=== PATIENT | female | born 1945 | race Caucasian/White ===

== ENCOUNTER 2021-10-03 05:59 | Inpatient (IN) ==
--- NOTE | 2021-07-17 14:35 | PAT Medication Instructions ---
Medication Instructions Date of Service July 17, 2021 Home Medications amlodipine 2.5 mg tablet 2.5 mg PO HS aspirin 81 mg tablet 81 mg PO HS calcium 600 mg capsule 600 mg PO QAM citalopram 20 mg tablet (Celexa) 20 mg PO QAM cyanocobalamin (vitamin B-12) 1,000 mcg tablet,extended release (Vitamin B-12 ER) 1,000 mcg PO QAM dicyclomine 10 mg capsule 10 mg PO TID PRN doxazosin 2 mg tablet (Cardura) 2 mg PO HS ezetimibe 10 mg tablet (Zetia) 10 mg PO QAM isosorbide mononitrate 60 mg tablet,extended release 24 hr 60 mg PO HS isosorbide mononitrate 60 mg tablet,extended release 24 hr 90 mg PO QAM lorazepam 1 mg tablet 1 mg PO HS losartan 100 mg tablet 100 mg PO QAM magnesium 250 mg tablet 250 mg PO HS metoprolol succinate 100 mg tablet,extended release 24 hr 100 mg PO QAM multivitamin 1 cap PO QAM nitroglycerin 0.4 mg sublingual tablet 0.4 mg SUBLINGUAL UD PRN pantoprazole 40 mg tablet,delayed release (Protonix) 40 mg PO HS potassium chloride 8 mEq tablet,extended release (Klor-Con) 8 meq PO QAM rosuvastatin 10 mg tablet (Crestor) 20 mg PO HS triamterene 37.5 mg-hydrochlorothiazide 25 mg capsule 1 cap PO UD albuterol sulfate 0.63 mg/3 mL solution for nebulization 0.63 mg INHALATION Q4H PRN albuterol sulfate 90 mcg/actuation aerosol inhaler 2 puff INHALATION Q6H PRN levothyroxine 75 mcg tablet 75 mcg PO QAM Continue as directed nitroglycerin 0.4 mg sublingual tablet 0.4 mg SUBLINGUAL UD PRN(if needed) ASK your prescriber and surgeon aspirin 81 mg tablet 81 mg PO HS DO NOT take the morning of surgery calcium 600 mg capsule 600 mg PO QAM cyanocobalamin (vitamin B-12) 1,000 mcg tablet,extended release (Vitamin B-12 ER) 1,000 mcg PO QAM dicyclomine 10 mg capsule 10 mg PO TID PRN losartan 100 mg tablet 100 mg PO QAM multivitamin 1 cap PO QAM potassium chloride 8 mEq tablet,extended release (Klor-Con) 8 meq PO QAM triamterene 37.5 mg-hydrochlorothiazide 25 mg capsule 1 cap PO UD Take morning of surgery With a small sip of water, OTHERWISE NOTHING TO EAT OR DRINK AFTER MIDNIGHT: citalopram 20 mg tablet (Celexa) 20 mg PO QAM ezetimibe 10 mg tablet (Zetia) 10 mg PO QAM isosorbide mononitrate 60 mg tablet,extended release 24 hr 90 mg PO QAM metoprolol succinate 100 mg tablet,extended release 24 hr 100 mg PO QAM albuterol sulfate 0.63 mg/3 mL solution for nebulization 0.63 mg INHALATION Q4H PRN(use if needed). albuterol sulfate 90 mcg/actuation aerosol inhaler 2 puff INHALATION Q6H PRN(use if needed; please bring with you to hospital day of surgery if possible). levothyroxine 75 mcg tablet 75 mcg PO QAM Take evening before surgery amlodipine 2.5 mg tablet 2.5 mg PO HS dicyclomine 10 mg capsule 10 mg PO TID PRN doxazosin 2 mg tablet (Cardura) 2 mg PO HS isosorbide mononitrate 60 mg tablet,extended release 24 hr 60 mg PO HS lorazepam 1 mg tablet 1 mg PO HS magnesium 250 mg tablet 250 mg PO HS pantoprazole 40 mg tablet,delayed release (Protonix) 40 mg PO HS rosuvastatin 10 mg tablet (Crestor) 20 mg PO HS albuterol sulfate 0.63 mg/3 mL solution for nebulization 0.63 mg INHALATION Q4H PRN(if needed) albuterol sulfate 90 mcg/actuation aerosol inhaler 2 puff INHALATION Q6H PRN(if needed) Other Notes If you have any questions please call us at [phone] or [phone] or [phone] or [phone]
--- NOTE | 2021-07-29 09:05 | Anesthesiology Consultation ---
Date of Service July 29, 2021 Assessment & Plan (1) Encounter for pre-operative examination: Chart Review Chart Review: Acceptable Risk for Surgery (pending PCP clearance, response on anemia/cardio optimization, and preop Covid testing results ) and Patient seen in Pre Admission Testing Awaiting surgeon ordered PCP clearance - did write note to PCP regarding anemia and if patient is also optimized from cardiac standpoint (pt's previous cardiol ogist recently retired) Per PAT appt on 07/29/21, patient denies any recent travel or large group activities. No known Covid positive exposures or Covid related symptoms. No known Covid infection in the past 90 days. Pt is vaccinated for Covid. Preop Covid testing scheduled 08/08/21= will await results. Educated on importance of self quarantining, social distancing and wearing mask in public for the patient one week prior to surgery and after Covid testing done Pt last seen by cardio 12/31/20= Pt seen for follow up visit. Consider having back surgery with Dr. Mchugh in [place] in the future. Recent labs reviewed. Recommended diet and risk factor modification. Pt will follow up with PCP for poor appetite and weight loss. Pt will continue following with ortho for back issues Teaching & Discussion Pre-Anesthesia Teaching/Discussion Notes: Instructed NPO after midnight before surgery,except medications with 15 cc of water. Medication instructions provided according to the PAT guidelines. History Surgery Operation Date: 08/12/21 12:25 Proposed Procedures p L3-L4 Decompression and Fusion, L4-L5 Hardware Removal - Mark Mchugh, Height/Weight Height: 4 ft 9 in Weight: 61 kg Allergies Allergy/AdvReac Type Severity Reaction Status Date / Time morphine Allergy Mild iv Verified 07/16/21 16:08 morphine - vomit oxycodone Allergy Mild very Verified 07/16/21 16:08 nauseated Medications Home Medications Medication Instructions Recorded Confirmed Last Taken amlodipine 2.5 mg tablet 2.5 mg PO HS 01/23/21 07/16/21 Unknown aspirin 81 mg tablet 81 mg PO HS 01/23/21 07/16/21 Unknown calcium 600 mg capsule 600 mg PO QAM 01/23/21 07/16/21 Unknown citalopram 20 mg tablet (Celexa) 20 mg PO QAM 01/23/21 07/16/21 Unknown cyanocobalamin (vitamin B-12) 1,000 mcg PO [facility] 01/23/21 07/16/21 Unknown 1,000 mcg tablet,extended release (Vitamin B-12 ER) dicyclomine 10 mg capsule 10 mg PO TID PRN 01/23/21 07/16/21 Unknown doxazosin 2 mg tablet (Cardura) 2 mg PO 01/23/21 07/16/21 Unknown ezetimibe 10 mg tablet (Zetia) 10 mg PO [facility] 01/23/21 07/16/21 Unknown isosorbide mononitrate 60 mg 60 mg PO 01/23/21 07/16/21 Unknown tablet,extended release 24 hr isosorbide mononitrate 60 mg 90 mg PO [facility] 01/23/21 07/16/21 Unknown tablet,extended release 24 hr lorazepam 1 mg tablet 1 mg PO 01/23/21 07/16/21 Unknown losartan 100 mg tablet 100 mg PO [facility] 01/23/21 07/16/21 Unknown magnesium 250 mg tablet 250 mg PO 01/23/21 07/16/21 Unknown metoprolol succinate 100 mg 100 mg PO [facility] 01/23/21 07/16/21 Unknown tablet,extended release 24 hr multivitamin 1 cap PO [facility] 01/23/21 07/16/21 Unknown nitroglycerin 0.4 mg sublingual 0.4 mg SUBLINGUAL UD PRN 01/23/21 07/16/21 Unknown tablet pantoprazole 40 mg tablet,delayed 40 mg PO 01/23/21 07/16/21 Unknown release (Protonix) potassium chloride 8 mEq 8 meq PO [facility] 01/23/21 07/16/21 Unknown tablet,extended release (Klor-Con) rosuvastatin 10 mg tablet (Crestor) 20 mg PO 01/23/21 07/16/21 Unknown triamterene 37.5 1 cap PO 01/23/21 07/16/21 Unknown mg-hydrochlorothiazide 25 mg capsule albuterol sulfate 0.63 mg/3 mL 0.63 mg INHALATION Q4H PRN 07/16/21 07/16/21 Unknown solution for nebulization albuterol sulfate 90 mcg/actuation 2 puff INHALATION Q6H PRN 07/16/21 07/16/21 Unknown aerosol inhaler levothyroxine 75 mcg tablet 75 mcg PO [facility] 07/16/21 07/16/21 Unknown Past Medical History Medical History (Updated 07/29/21 @ 09:25 by Renae Mendiola PA-C) Anemia F/U DR GEMA ROSENTHAL No recent blood transfusion - no recent issues Anxiety Asthma No recent exacerbations LAST INHALER USE 1 YR AGO CAD (coronary artery disease) S/p 3 vessel CABG [address] 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 parisi no stents-05/2020 History of carpal tunnel surgery of left wrist History of coronary artery bypass graft 1999 - x 3 at [place] History of esophagogastroduodenoscopy (EGD) History of left cataract extraction History of right cataract extraction History of total left knee replacement History of total right knee replacement Hx of cholecystectomy Hx of colonoscopy 2020 Hx of shoulder surgery right rotator cuff repair Hx of sinus surgery Hx of thumb surgery right S/P epidural steroid injection Status post trigger finger release left finger Past Anesthesia History No Hx of Anesthesia Complications and No Family Hx of Anesthesia Complications History of PONV No Hx of PONV and No Hx of Motion Sickness Social History Smoking Status: Former smoker Do You Dip or Chew Tobacco: No Smoking End Date: QUIT YRS AGO Hx Alcohol Use: Yes alcohol intake frequency: holidays/special occasions only Hx Substance Use: No substance use type: does not use Review of Systems Patient denies chest pain, shortness of breath, dyspnea on exertion, cough, wheezing, palpitations. No hx of seizures, stroke, NC. No hx of blood clots or blood transfusions Physical Exam Vital Signs VITALS BP 112/62 P 50 TEMP 97.9 SP02 98% RESP 16 Constitutional no acute distress ENMT Mouth: no TMJ clicking Thyromental Distance: < 3.5 Finger Breadths (2.5) Mallampati Class: II (smaller airway ) Mouth / Teeth: 1. Missing Permanent left upper side tooth implant Neck + limited neck extension (mild ) Respiratory normal respiratory effort; no respiratory distress Auscultation: lungs clear to auscultation bilaterally and + diminished lung sounds (throughout); no wheezes Cardiovascular Rate/Rhythm: regular rate and regular rhythm Heart Sounds: no murmur Vessels: no carotid bruit Musculoskeletal Spine: no pain with cervical ROM Extremities: extremities normal to inspection Psychiatric Orientation: alert Lab Results Anesthesia Preop Results Results Anesthesia Widget: WBC 6.60 K/uL (4.8-10.8) 07/29/21 Hgb 10.7 g/dL (12.0-16.0) L 07/29/21 Hct 33.9 % (37-47) L 07/29/21 Plt 225 K/uL (130-400) 07/29/21 Na 142 mmol/L (136-145) 07/29/21 K 4.2 mmol/L (3.5-5.1) 07/29/21 Cl 108 mmol/L (98-107) H 07/29/21 CO2 31 mmol/L (21-32) 07/29/21 BUN 26 mg/dl (7-18) H 07/29/21 Creat 0.93 mg/dl (0.6-1.2) 07/29/21 Glucose Level 96 mg/dl (70-99) 07/29/21 PT 11.3 Seconds (9.0-12.0) 07/29/21 PTT 27.1 Seconds (21.0-31.0) 07/29/21 INR 1.1 (0.9-1.1) 07/29/21 Urine Color Yellow 07/29/21 Urine Appearance Clear (Clear) 07/29/21 Urine pH 5.5 (4.5-7.5) 07/29/21 Urine Specific Marlin 1.020 (1.000-1.030) 07/29/21 Urine Protein Negative (Negative) 07/29/21 Urine Glucose (UA) Negative (Negative) 07/29/21 Urine Ketones Negative (Negative) 07/29/21 Urine Blood Negative (Negative) 07/29/21 Urine Nitrite Negative (Negative) 07/29/21 Urine Bilirubin Negative (Negative) 07/29/21 Urine Urobilinogen Negative (Negative) 07/29/21 Urine Leukocyte Esterase Negative (Negative) 07/29/21 Blood Type O Positive 07/29/21 Antibody Screen NEGATIVE 07/29/21 Lab Comments: Anemia per PMH- will send note to PCP to inquire if current lab values are baseline for patient Testing Electrocardiogram Date: 07/29/21 SB with 1st degree AVB at 50bpm Otherwise normal EKG per cardio. Chest X-Ray Date: 01/29/21 Findings: + NAD A few small linear density at the left lung base consistent with subsegmental atelectasis or scarring. No focal lung consolidations to suggest pneumonia. No evidence for pulmonary edema. There is a tortuous thoracic aorta. No pleural fus ions. No pneumothorax. The heart is normal in size. There are poststernotomy changes. Pedicle screws within the left side of the lower lumbar spine. These are partially imaged on this study. Echocardiogram Date: 05/27/20 EF: 55% LV Function: normal Other Findings: no LVH Aortic root4 cm at the sinotubular junction. Mild mitral annular calcification. Stress Test Date: 09/06/19 Normal myocardial perfusion SPECT images without evidence for pharmacologically induced ischemia. Normal LV motion and thickening. Normal LVEF 53%. Cardiac Catheterization Date: 06/10/20 LM = distal 20% stenosis LAD = mid 40% stenosis. RICHTER is atretic/occluded. Circumflex = mild atherosclerosis RCA 70% mid chronic total occlusion. SVG to RPDA, occluded midway. Distal RCA is filling retrograde from LAD artery. Severe single vessel CAD. Occluded vein graft to RPDA, RICHTER to LAD. Normal LV systolic function at 55%. 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 Significant stenosis of left common carotid artery.
[2021-10-03] MEDS ORDERED: ACETAMINOPHEN 500 MG TAB PO SCH (06:00)
[2021-10-03] MEDS ORDERED: CeleBREX 200 MG CAP PO SCH (06:00)
[2021-10-03] MEDS ORDERED: ceFAZolin 1000MG 1,000 MG/7.5 ML SYR IV SCH (06:00)
[2021-10-03] MEDS ORDERED: LR 15ML/HR IV SCH (06:00)
[2021-10-03] MEDS ORDERED: GABAPENTIN 300 MG CAP PO SCH (06:00)
[2021-10-03] MEDS ORDERED: LIDOCAINE 2% 2 ML VIAL/AMP(20MG/ML) INFIL ONE (06:37)
[2021-10-03] MEDS ORDERED: fentaNYL citrate 100 MCG/2 ML VIAL ONE (06:37)
[2021-10-03] MEDS ORDERED: ROCURONIUM BROMIDE 10 MG/ML 5 ML VIAL IV ONE (06:37)
[2021-10-03] MEDS ORDERED: PROPOFOL IV EMULSION 10 MG/ML 20 ML VIAL IV ONE (06:37)
[2021-10-03] MEDS ORDERED: HYDROmorphone INJ 2 MG/ML SYR/VIAL ONE (06:37)
[2021-10-03 06:38] LABS: Basophils # (auto) 0.06 K/uL (0-0.2); Basophils % (auto) 0.8 %; Eosinophils # (auto) 0.27 K/uL (0-0.5); Eosinophils % (auto) 3.7 %; Hematocrit (blood only) 36.6 % (37-47); Hemoglobin 11.7 g/dL (12.0-16.0); Immature Granulocytes # (auto) 0.02 K/uL (0.00-0.02); Immature Granulocytes % (auto) 0.3 %; Lymphocytes # (auto) 2.48 K/uL (1.2-3.4); Lymphocytes % (auto) 33.8 %; Mean Corpuscular Hemoglobin 32.1 pg (25-34); Mean Corpuscular Volume 100.3 fL (80-100); Mean Platelet Volume 11.3 fL (7.4-10.4); Monocytes # (auto) 1.06 K/uL (0.11-0.59); Monocytes % (auto) 14.5 %; Neutrophils # (auto) 3.44 K/uL (1.4-6.5); Neutrophils % (auto) 46.9 %; Platelet Count 208 K/uL (130-400); RDW Coefficient of Variation 13.5 % (11.5-14.5); RDW Standard Deviation 49.9 fL (36.4-46.3); Red Blood Count 3.65 M/uL (4.2-5.4); White Blood Count 7.33 K/uL (4.8-10.8)
[2021-10-03 06:45] LABS: INR 1.1 (0.9-1.1); Partial Thromboplastin Ratio 0.9; Partial Thromboplastin Time 25.4 Seconds (21.0-31.0); Prothrombin Time 11.4 Seconds (9.0-12.0)
[2021-10-03 07:03] LABS: BUN Creatinine Ratio 28.3 (10-20); Calcium 9.7 mg/dl (8.5-10.1); Creatinine Clr Calc Pharmacy 33.9 ml/min; Est GFR (African American) 58.2 ml/min; Est GFR (Non-African American) 50.3 ml/min; Potassium 3.5 mmol/L (3.5-5.1)
[2021-10-03] MEDS ORDERED: EPINEPHrine INJ 1 MG/ML AMP ONE (07:03)
[2021-10-03] MEDS ORDERED: BUPIVACAINE 0.5 % 5 MG/1 ML MPF 30ML VIAL ONE (07:03)
[2021-10-03] MEDS ORDERED: ceFAZolin 330 MG/ML 1 GM VIAL ONE (07:03)
--- NOTE | 2021-10-03 07:35 | History & Physical Report ---
Date of Service October 03, 2021 Assessment & Plan (1) Neurogenic claudication due to lumbar spinal stenosis: Plan: L3-L4 decompression fusion, L4-L5 hardware removal History of Present Illness Chief Complaint: Back and bilateral leg pain Primary Care Provider: Kareem Stanley This is a 68-year-old female well-known to me the presents with chronic persistent back and leg pain. Failing course of nonoperative care is here for surgical invention. Allergies Allergy/AdvReac Type Severity Reaction Status Date / Time morphine Allergy Mild iv Verified 10/03/21 06:32 morphine - vomit oxycodone Allergy Mild very Verified 10/03/21 06:32 nauseated Home Medications Medication Instructions Recorded Confirmed Type amlodipine 2.5 mg tablet 2.5 mg PO HS 01/23/21 10/03/21 History aspirin 81 mg tablet 81 mg PO 01/23/21 10/03/21 History calcium 600 mg capsule 600 mg PO [facility] 01/23/21 10/03/21 History citalopram 20 mg tablet (Celexa) 20 mg PO [facility] 01/23/21 10/03/21 History cyanocobalamin (vitamin B-12) 1,000 mcg PO [facility] 01/23/21 10/03/21 History 1,000 mcg tablet,extended release (Vitamin B-12 ER) dicyclomine 10 mg capsule 10 mg PO TID PRN 01/23/21 10/03/21 History doxazosin 2 mg tablet (Cardura) 2 mg PO 01/23/21 10/03/21 History ezetimibe 10 mg tablet (Zetia) 10 mg PO [facility] 01/23/21 10/03/21 History isosorbide mononitrate 60 mg 60 mg PO 01/23/21 10/03/21 History tablet,extended release 24 hr isosorbide mononitrate 60 mg 90 mg PO [facility] 01/23/21 10/03/21 History tablet,extended release 24 hr lorazepam 1 mg tablet 1 mg PO 01/23/21 10/03/21 History losartan 100 mg tablet 100 mg PO QA 01/23/21 10/03/21 History magnesium 250 mg tablet 250 mg PO 01/23/21 10/03/21 History metoprolol succinate 100 mg 100 mg PO [facility] 01/23/21 10/03/21 History tablet,extended release 24 hr multivitamin 1 cap PO QAM 01/23/21 10/03/21 History nitroglycerin 0.4 mg sublingual 0.4 mg SUBLINGUAL UD PRN 01/23/21 10/03/21 History tablet pantoprazole 40 mg tablet,delayed 40 mg PO HS 01/23/21 10/03/21 History release (Protonix) potassium chloride 8 mEq 8 meq PO QAM 01/23/21 10/03/21 History tablet,extended release (Klor-Con) rosuvastatin 10 mg tablet (Crestor) 20 mg PO HS 01/23/21 10/03/21 History triamterene 37.5 1 cap PO UD 01/23/21 10/03/21 History mg-hydrochlorothiazide 25 mg capsule albuterol sulfate 0.63 mg/3 mL 0.63 mg INHALATION Q4H PRN 07/16/21 10/03/21 History solution for nebulization albuterol sulfate 90 mcg/actuation 2 puff INHALATION Q6H PRN 07/16/21 10/03/21 History aerosol inhaler levothyroxine 75 mcg tablet 75 mcg PO QAM 07/16/21 10/03/21 History Past Med/Surg History Medical History (Updated 10/03/21 @ 07:35 by Mark Mchugh DO) Anemia F/U DR GEMA ROSENTHAL No recent blood transfusion - no recent issues Anxiety Asthma No recent exacerbations LAST INHALER USE 1 YR AGO CAD (coronary artery disease) S/p 3 vessel CABG [address] 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 parisi no stents-05/2020 History of carpal tunnel surgery of left wrist History of coronary artery bypass graft 1999 - x 3 at [place] History of esophagogastroduodenoscopy (EGD) History of left cataract extraction History of right cataract extraction History of total left knee replacement History of total right knee replacement Hx of cholecystectomy Hx of colonoscopy 2020 Hx of shoulder surgery right rotator cuff repair Hx of sinus surgery Hx of thumb surgery right S/P epidural steroid injection Status post trigger finger release left finger Family History Other No known health problems Social History (Updated 07/16/21 @ 16:35 by Vannessa Moon RN) Smoking Status: Never smoker Smoking End Date: QUIT YRS AGO; Second Hand Exposure: No; Do You Dip or Chew Tobacco: No; Tobacco Cessation Education Requested by Patient: No Hx Alcohol Use: Yes Alcohol type: wine Hx Substance Use: No Preferred Language: Panamanian Communication Ability: Effective Technical Assoc Required: No Beliefs That Will Affect Care: None Current Living Situation: Spouse current occupational status: retired Other Information That Helps Us Care for You: No Feels Safe at Home: Yes Safety Concerns: Feels Safe At This Time Assistive Devices: CPAP Assistive Devices Comment: MARSHAE PRN Physical Exam Physical Exam: Patient is alert and oriented Heart regular in rhythm Lungs clear Results & Data ([facility]) Vital Signs (Past 12 Hours) Vital Signs Temp Pulse Resp BP Pulse Ox 10/03/21 06:39 36.6 C 53 L 18 121/85 96
--- NOTE | 2021-10-03 07:35 | History & Physical Bridge Note ---
Date of Service October 03, 2021 History & Physical Bridge Note I have examined the patient, reviewed the History & Physical and in the interval since the performance of the History & Physical I have noted the following changes of clinical significance: no changes noted
[2021-10-03] MEDS ORDERED: ONDANSETRON INJ 2 MG/ML 2 ML VIAL IV PRN (08:18)
[2021-10-03] MEDS ORDERED: ATROPINE SULFATE 0.1 MG/ML 10ML SYR IV PRN (08:18)
[2021-10-03] MEDS ORDERED: HYDROmorphone INJ 1 MG/ML SYRINGE IV PRN ×2 (08:18→12:08)
[2021-10-03] MEDS ORDERED: fentaNYL citrate 100 MCG/2 ML VIAL IV PRN (08:18)
[2021-10-03] MEDS ORDERED: FLOSEAL HEMOSTATIC MATRIX 10ML TOP ONE (09:34)
--- NOTE | 2021-10-03 09:54 | Operative Report ---
Post Operative Report Pre & Post Diagnosis Operation Date: 10/03/21 07:45 Pre-Op Diagnosis: Neurogenic Claudication due to Lumbar Spinal Stenosis Post-Op Diagnosis: Neurogenic Claudication due to Lumbar Spinal Stenosis I identified the patient and participated in the time-out.: Yes Procedure Operation Date: 10/03/21 07:45 Actual Procedures 1 removal of posterior instrumentation L4-5. #2 exploration of fusion L4-5 per #3 lumbar decompression bilateral medial facetectomies and foraminotomies L2-L3 L3-L4 per #4 posterior spinal fusion L3-L4. #5 placement posterior instrumentation L3-L5. #6 interbody fusion L3-L4. #7 placement of titanium cage 10 x 22 mm at L3-L4. #8 placement locally harvested morselized autograft in the posterior gutters. #9 placement infuse collagen sponge and master graft in the posterior lateral gutters and I factor in the interbody space. Surgeon Mark Mchugh, DO Belt Maker Helper None Estimated Blood Loss 100 Findings Consistent with Post-Op Diagnosis Specimens None Indications This is a 68-year-old female who presents with bulge diagnosis after failing course of nonoperative care is here for the above-mentioned procedure. Description of Procedure Patient was met with identified informed consent obtained. Patient was then taken to the operative suite underwent ablation placed in a prone position adjustable top Andrea frame. All bony prominences well-padded eyes inspected to ensure no external pressure placed upon. This point the lumbar spine was prepped and draped in a sterile fashion. Sharp dissection with the assistance of Bovie cautery performed down to and exposing the lamina and transverse processes of L3 and instrumentation at L4-L5. Then proceeded with the hardware explore the fusion mass noting it to be mature on the right but quite limited on the left. Then performed a complete laminectomy of L3 partial neck of L2 i ncluding bilateral medial facetectomies and foraminotomies addressing severe spinal stenosis. Pedicle screws then placed at L3-L4-L5 on the left and L5 3 L4 on the right. Proper sized yifan was placed. By way of transfer approach on right a complete discectomy of L3-L4 was performed endplates curetted to subcortically bone and a 11 x 22 mm titanium cage filled I factor tapped in position. The rods then locked in final position bilaterally. The transverse processes of L3 and L4 burred to subcortical bleeding bone. Infuse collagen sponge master graft lobe autograft was placed in the posterior gutters. 15 round MIKE drain inserted. Incision was then closed with 1 Vicryl the fascia 2-0 Vicryl subcutaneously and 4 Monocryl for final skin closure. Steri-Strip Steri- Strips placed. Patient will continue PACU stable condition. Please note spinal cord monitoring visualized at the procedure no changes noted. I attest to the content of the Intraoperative Record and any orders documented therein. Any exceptions are noted below.
[2021-10-03] MEDS: ePHEDrine sulfate 50 MG/ML AMP IV PRN ×3 (10:10→10:25)
--- NOTE | 2021-10-03 11:22 | Anesthesiology Progress Note ---
Date of Service October 03, 2021 Anesthesia Post Procedure Vital Signs Vital Signs: Temp Pulse Pulse Resp BP Pulse Ox 10/03/21 11:05 70 13 101/49 L 98 10/03/21 10:55 64 12 94/55 L 99 10/03/21 10:45 66 10 L 97/54 L 99 10/03/21 10:35 67 10 L 96/54 L 100 10/03/21 10:25 63 11 L 82/44 L 100 10/03/21 10:15 60 12 96/47 L 100 10/03/21 10:06 97.2 F L 59 L 11 L 108/64 99 10/03/21 06:39 97.9 F 53 L 18 121/85 96 Pain Intensity Right Leg: Pain Intensity: 0 Transfer of Care Handoff Completed per policy Notes Mental Status: alert / awake / arousable and participated in evaluation Patient Amnestic to Procedure: Yes Nausea / Vomiting: adequately controlled Pain: adequately controlled Airway Patency, RR, SpO2: stable & adequate BP & HR: stable & adequate and see Notes below Hydration State: stable & adequate Anesthetic Complications: no major complications apparent and Pt Satisfied with anesthetic care Notes: postop somnolence after extubation, hypotensive responsive to BP medications and fluid bolus.
[2021-10-03] MEDS ORDERED: FAMOTIDINE 20 MG TAB PO PRN (12:08)
[2021-10-03] MEDS ORDERED: ALUMINUM/MAGNESIUM SUSP 30 ML UDC PO PRN (12:08)
[2021-10-03] MEDS ORDERED: MAGNESIUM HYDROXIDE SUSP 30 ML UDC PO PRN (12:08)
[2021-10-03] MEDS ORDERED: LORazepam 2 MG/1 ML VIAL IV PRN (12:08)
[2021-10-03] MEDS ORDERED: DO NOT ADMINISTER FLU VACCINE PRN (12:08)
[2021-10-03] MEDS ORDERED: NALOXONE HCL 0.4 MG/1 ML VIAL/CARP IV PRN (12:08)
[2021-10-03] MEDS ORDERED: ACETAMINOPHEN 1,000 MG/100 ML VIAL IV PRN (12:08)
[2021-10-03] MEDS ORDERED: METOCLOPRAMIDE HCL INJ 5 MG/ML 2 ML VIAL IV PRN (12:08)
[2021-10-03] MEDS ORDERED: DICYCLOMINE HCL 10 MG CAP PO PRN (12:08)
[2021-10-03] MEDS ORDERED: PROMETHAZINE HCL 12.5 MG in SODIUM CHLORIDE 0.9% 50 ML IV PRN (12:08)
[2021-10-03] MEDS ORDERED: DO NOT ADMINISTER PNEUMOCOCCAL VACCINE PRN (12:08)
[2021-10-03] MEDS ORDERED: ONDANSETRON 4 MG OD TAB PO PRN (12:08)
[2021-10-03] MEDS ORDERED: LORazepam 0.5 MG TAB PO PRN (12:08)
[2021-10-03] MEDS ORDERED: HYDROmorphone INJ 0.5 MG/0.5 ML SYR IV PRN (12:08)
[2021-10-03] MEDS ORDERED: SOD PHOSPHATE/SOD BIPHOSPHATE ENEMA 132 ML BTL PR PRN (12:08)
[2021-10-03] MEDS ORDERED: NITROGLYCERIN SL 0.4 MG/TAB TAB SL PRN (12:08)
[2021-10-03] MEDS ORDERED: diphenhydrAMINE Capsule 25 MG CAP PO PRN (12:08)
[2021-10-03] MEDS ORDERED: oxyCODONE HCL IR 5 MG TAB (IMMEDIATE RELEASE) PO PRN (12:08)
[2021-10-03] MEDS ORDERED: hydrOXYzine HCl 25 MG TAB PO PRN (12:08)
[2021-10-03] MEDS ORDERED: bisacodyL 10 MG SUPP PR PRN (12:08)
--- NOTE | 2021-10-03 12:16 | Fluoroscopy Report ---
FL lumbar spine 2-3V CLINICAL HISTORY: L3-L4 D/F, L4-L5 HARDWARE REMOVAL COMPARISON STUDY: None FLUOROSCOPY TIME: 26 seconds. FLUOROSCOPIC IMAGES: 2 FINDINGS: AP and lateral fluoroscopic spot images demonstrate interpedicular screw and yifan fixation f rom L3 through L5 on the left. There is no screw at L5 on the right. There is grade 1/4 spondylolisth esis of L4 on L5. Disc spacers present at L3-4. IMPRESSION: Interpedicular screw and yifan fixation as described. ACT 112: Negative or not required by law. Electronically signed by: Jesse Cohen M.D. 10/03/2021 12:15 PM
[2021-10-03] MEDS: SODIUM CHLORIDE 0.9% 1000ML 1,000 ML IV SCH (12:33)
--- NOTE | 2021-10-03 12:44 | History & Physical Report ---
Date of Service October 03, 2021 Assessment & Plan (1) Status post lumbar surgery: Plan: Post op day# 0 S/P removal hardware L4-L5, decompression and fusion L3-L5 by Dr Lolita FUENTES#100ml -pain management per ortho -wound management per ortho -PT/OT as appropriate -DVT prophylaxis per ortho -incentive spirometry -monitor H&H for acute blood loss anemia; pre-op Hgb: 11.7 (2) CAD (coronary artery disease): (3) PVD (peripheral vascular disease): Plan: S/P CABG in 1999 S/P Iliac artery stent in 1999 -Continue aspirin, isosorbide, metoprolol succinate, rosuvastatin (4) Hypertension: Plan: -Continue amlodipine, Cardura, losartan, metoprolol succinate -Hold triamterene/HCTZ for now (5) Hyperlipidemia: Plan: -Continue rosuvastatin, Zetia (6) CKD (chronic kidney disease), stage III: Plan: Pre-op Cr: 1.0 -Monitor renal functions, avoid nephrotoxic agents when possible (7) Hypothyroidism: Plan: -Continue levothyroxine (8) Anemia: Plan: Chronic anemia. Follows with hematology in [place] Pre-op Hgb: 11.7 -Monitor H&H (9) Asthma: Plan: No signs of exacerbation -Continue home inhalers (10) Anxiety: (11) Depression: Plan: -Continue Celexa (12) Sleep apnea: Plan: -CPAP HS DVT Prophylaxis -SCDs per ortho Disposition per primary service Follows with Dr Stanley in [place], [place] for routine care Pt was seen and care coordinated with Dr Chang. See addendum Thank you for this consultation. We will follow the patient with you during their hospital stay. You can reach a member of the [facility] Team 15/02 via [facility] Admission and Anticipated Discharge Date Admission Date: October 03, 2021 History of Present Illness Chief Complaint: Postop medical management Primary Care Provider: Kareem Stanley Patient is 76-year-old female with PMH HTN, HLD, CAD s/p CABG, CKD III, hypothyroidism, iron deficiency anemia, PVD s/p iliac artery stents in 1999, JILL, and others listed below seen in medical consultation s/p L3-L5 decompression and fusion today by Dr. Mchugh. Patient reports mild nausea. Is currently sipping on broth for lunch. Denies abdominal pain, vomiting, chest pain, shortness of breath. Reports slight low back pain. Denies lower extremity pain or paresthesias. Denies JUNIOR, dizziness, vision changes, neck pain, palpitations, cough, sore throat, choking, extremity edema, rashes, urinary symptoms. Allergies Allergy/AdvReac Type Severity Reaction Status Date / Time morphine Allergy Mild iv Verified 10/03/21 06:32 morphine - vomit oxycodone Allergy Mild very Verified 10/03/21 06:32 nauseated Home Medications Medication Instructions Recorded Confirmed Type amlodipine 2.5 mg tablet 2.5 mg PO 01/23/21 10/03/21 History aspirin 81 mg tablet 81 mg PO 01/23/21 10/03/21 History calcium 600 mg capsule 600 mg PO [facility] 01/23/21 10/03/21 History citalopram 20 mg tablet (Celexa) 20 mg PO [facility] 01/23/21 10/03/21 History cyanocobalamin (vitamin B-12) 1,000 mcg PO [facility] 01/23/21 10/03/21 History 1,000 mcg tablet,extended release (Vitamin B-12 ER) dicyclomine 10 mg capsule 10 mg PO TID PRN 01/23/21 10/03/21 History doxazosin 2 mg tablet (Cardura) 2 mg PO 01/23/21 10/03/21 History ezetimibe 10 mg tablet (Zetia) 10 mg [facility] 01/23/21 10/03/21 History isosorbide mononitrate 60 mg 60 mg PO 01/23/21 10/03/21 History tablet,extended release 24 hr isosorbide mononitrate 60 mg 90 mg PO [facility] 01/23/21 10/03/21 History tablet,extended release 24 hr lorazepam 1 mg tablet 1 mg PO 01/23/21 10/03/21 History losartan 100 mg tablet 100 mg PO [facility] 01/23/21 10/03/21 History magnesium 250 mg tablet 250 mg PO 01/23/21 10/03/21 History metoprolol succinate 100 mg 100 mg PO [facility] 01/23/21 10/03/21 History tablet,extended release 24 hr multivitamin 1 cap PO [facility] 01/23/21 10/03/21 History nitroglycerin 0.4 mg sublingual 0.4 mg SUBLINGUAL UD PRN 01/23/21 10/03/21 History tablet pantoprazole 40 mg tablet,delayed 40 mg PO HS 01/23/21 10/03/21 History release (Protonix) potassium chloride 8 mEq 8 meq PO QAM 01/23/21 10/03/21 History tablet,extended release (Klor-Con) rosuvastatin 10 mg tablet (Crestor) 20 mg PO HS 01/23/21 10/03/21 History triamterene 37.5 1 cap PO UD 01/23/21 10/03/21 History mg-hydrochlorothiazide 25 mg capsule albuterol sulfate 0.63 mg/3 mL 0.63 mg INHALATION Q4H PRN 07/16/21 10/03/21 History solution for nebulization albuterol sulfate 90 mcg/actuation 2 puff INHALATION Q6H PRN 07/16/21 10/03/21 History aerosol inhaler levothyroxine 75 mcg tablet 75 mcg PO QAM 07/16/21 10/03/21 History Past Med/Surg History Medical History (Updated 10/03/21 @ 13:03 by Paula Montanez PA-C) Anemia F/U DR GEMA ROSENTHAL No recent blood transfusion - no recent issues Anxiety Asthma No recent exacerbations LAST INHALER USE 1 YR AGO CAD (coronary artery disease) S/p 3 vessel CABG [address] 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 parisi no stents-05/2020 History of carpal tunnel surgery of left wrist History of coronary artery bypass graft 1999 - x 3 at [place] History of esophagogastroduodenoscopy (EGD) History of left cataract extraction History of right cataract extraction History of total left knee replacement History of total right knee replacement Hx of cholecystectomy Hx of colonoscopy 2020 Hx of shoulder surgery right rotator cuff repair Hx of sinus surgery Hx of thumb surgery right S/P epidural steroid injection Status post trigger finger release left finger Family History Other No known health problems Social History Smoking Status: Never smoker Smoking End Date: QUIT YRS AGO; Second Hand Exposure: No; Do You Dip or Chew Tobacco: No; Tobacco Cessation Education Requested by Patient: No Hx Alcohol Use: Yes Alcohol type: wine Hx Substance Use: No Preferred Language: Amharic Communication Ability: Effective Mail Sorter And Delivery Required: No Beliefs That Will Affect Care: None Current Living Situation: Spouse current occupational status: retired Other Information That Helps Us Care for You: No Feels Safe at Home: Yes Safety Concerns: Feels Safe At This Time Assistive Devices: CPAP Assistive Devices Comment: ODIN SO Review of Systems Review of Systems: All systems reviewed & are unremarkable except as noted in HPI & below Physical Exam Physical Exam: General: no distress, WDWN Head: normocephalic, atraumatic Eyes: conjunctiva non-injected, anicteric ENT: normal inspection external ears, nose, mucous membranes moist Neck: supple, trachea midline Lungs: clear, no respiratory distress, no wheezing/rhonchi/rales CV: RRR, no murmur, no pretibial edema Abd: normal BS, soft, non-tender Back: surgical dressing in place Ext: no cyanosis, no calf tenderness, pedal pushes and pulls intact bilaterally, sensation to light touch intact Neuro: A&O x 3, no focal deficits noted, normal affect Skin: warm, dry Results & Data Results & Data ([facility]) Vital Signs (Past 12 Hours) Vital Signs Temp Pulse Pulse Resp BP Pulse Ox 10/03/21 12:36 35.4 C L 70 14 113/78 94 10/03/21 12:14 67 16 102/64 95 10/03/21 12:01 36.3 C L 71 14 104/64 95 10/03/21 11:45 36.3 C L 70 16 90/56 L 96 10/03/21 11:35 36.6 C 67 15 103/53 L 95 10/03/21 11:25 36.6 C 72 12 103/55 L 96 10/03/21 11:15 36.6 C 69 12 100/54 L 99 10/03/21 11:05 70 13 101/49 L 98 10/03/21 10:55 64 12 94/55 L 99 10/03/21 10:45 66 10 L 97/54 L 99 10/03/21 10:35 67 10 L 96/54 L 100 10/03/21 10:25 63 11 L 82/44 L 100 10/03/21 10:15 60 12 96/47 L 100 10/03/21 10:06 36.2 C L 59 L 11 L 108/64 99 10/03/21 06:39 36.6 C 53 L 18 121/85 96 Laboratory Results Short CBC 10/03/21 Range/Units 06:20 WBC 7.33 (4.8-10.8) K/uL Hgb 11.7 L (12.0-16.0) g/dL Hct 36.6 L (37-47) % Plt Count 208 (130-400) K/uL BMP 10/03/21 06:20 Sodium 140 Potassium 3.5 Chloride 105 Carbon Dioxide 30 BUN 30 H Creatinine 1.06 Glucose 84 Calcium 9.7 Diagnostic Findings Lumbar Spine X-Ray 10/03/21 07:45 FL lumbar spine 2-3V CLINICAL HISTORY: L3-L4 D/F, L4-L5 HARDWARE REMOVAL COMPARISON STUDY: None FLUOROSCOPY TIME: 26 seconds. FLUOROSCOPIC IMAGES: 2 FINDINGS: AP and lateral fluoroscopic spot images demonstrate interpedicular screw and yifan fixation from L3 through L5 on the left. There is no screw at L5 on the right. There is grade 1/4 spondylolisthesis of L4 on L5. Disc spacers present at L3-4. IMPRESSION: Interpedicular screw and yifan fixation as described. ACT 112: Negative or not required by law. Electronically signed by: Jesse Cohen M.D. 10/03/2021 12:15 PM Code Status & VTE Plan VTE Prophylaxis Plan VTE Prophylaxis will be ordered: Yes Supervising Physician Co-Signing Physician Notes Attending addendum: The patient was seen and examined in medical floor She is a status post L3-L4 decompression fusion on 10/03/2021 She has some pain at the back and a little drowsy following surgery and anesthetics medication and pain medicine Denies any other significant symptoms On examination Lying in bed comfortably Hemodynamically stable Chestclear to auscultate bilaterally HeartS1, S2 regular Abdomenbenign Extremitiesno edema CNSalert, awake and oriented x3 Her preoperative labs, EKG and echocardiogram reviewed Medically stable following lumbar decompression and fusion as above Has CAD without any symptoms Agree with assessment and plan as outlined above by TRAN Morelos Dr
[2021-10-03] MEDS: ACETAMINOPHEN 500 MG TAB PO PRN (13:58)
[2021-10-03] MEDS: ONDANSETRON INJ 2 MG/ML 2 ML VIAL IV PRN ×2 (13:59→20:08)
[2021-10-03] MEDS: ceFAZolin 1000MG 1,000 MG/7.5 ML SYR IV SCH ×2 (15:57→23:29)
[2021-10-03] MEDS: amLODIPine BESYLATE 5 MG TAB PO SCH (21:51)
[2021-10-03] MEDS: DOXAZosin MESYLATE TAB 2 MG TAB PO SCH (21:52)
[2021-10-03] MEDS: ISOSORBIDE MONO EXTENDED REL 60 MG TABCR PO SCH (21:52)
[2021-10-03] MEDS: ASPIRIN 81 MG ECTAB PO SCH (21:52)
[2021-10-03] MEDS: DOCUSATE SODIUM/SENNA 50/8.6MG TAB PO SCH (21:52)
[2021-10-03] MEDS: MAGNESIUM OXIDE 400 MG TAB PO SCH (21:53)
[2021-10-03] MEDS: ROSUVASTATIN CALCIUM 20 MG TAB PO SCH (21:53)
[2021-10-03] MEDS: PANTOprazole 40 MG TAB PO SCH (21:53)
[2021-10-04] MEDS: SODIUM CHLORIDE 0.9% 1000ML 1,000 ML IV SCH (03:48)
[2021-10-04] MEDS: POLYETHYLENE (MIRALAX) 17 GM PACK PO SCH ×4 (05:51→23:24)
[2021-10-04] MEDS: LEVOTHYROXINE SODIUM 75 MCG TABLET PO SCH (05:51)
[2021-10-04] MEDS: traMADol HCL 50 MG TABLET PO PRN (05:54)
[2021-10-04 07:34] LABS: Basophils # (auto) 0.01 K/uL (0-0.2); Basophils % (auto) 0.1 %; Eosinophils # (auto) 0.01 K/uL (0-0.5); Eosinophils % (auto) 0.1 %; Hematocrit (blood only) 26.9 % (37-47); Hemoglobin 8.8 g/dL (12.0-16.0); Immature Granulocytes # (auto) 0.02 K/uL (0.00-0.02); Immature Granulocytes % (auto) 0.2 %; Lymphocytes # (auto) 1.26 K/uL (1.2-3.4); Lymphocytes % (auto) 10.6 %; Mean Corpuscular Hemoglobin 32.6 pg (25-34); Mean Corpuscular Hgb Conc 32.7 g/dL (32-36); Mean Corpuscular Volume 99.6 fL (80-100); Mean Platelet Volume 11.5 fL (7.4-10.4); Monocytes # (auto) 0.98 K/uL (0.11-0.59); Monocytes % (auto) 8.3 %; Neutrophils # (auto) 9.58 K/uL (1.4-6.5); Neutrophils % (auto) 80.7 %; Platelet Count 172 K/uL (130-400); RDW Coefficient of Variation 13.2 % (11.5-14.5); RDW Standard Deviation 48.5 fL (36.4-46.3); White Blood Count 11.86 K/uL (4.8-10.8)
[2021-10-04 07:50] LABS: Creatinine Clr Calc Pharmacy 44.1 ml/min; Est GFR (African American) 80.6 ml/min; Est GFR (Non-African American) 69.6 ml/min
[2021-10-04] MEDS ORDERED: POTASSIUM CHLORIDE 8 MEQ PO SCH (09:00)
[2021-10-04] MEDS: METOPROLOL SUCC 50MG EXT REL TAB PO SCH (09:26)
[2021-10-04] MEDS: ISOSORBIDE MONO EXTENDED REL 30 MG TABCR PO SCH (09:26)
[2021-10-04] MEDS: dexAMETHasone 6 MG in SYRINGE 0 ML IV SCH (09:26)
[2021-10-04] MEDS: LOSARTAN POTASSIUM 50 MG TAB PO SCH (09:26)
[2021-10-04] MEDS: CALCIUM CARBONATE 1250MG TAB PO SCH (09:26)
[2021-10-04] MEDS: MULTIVITAMIN TAB PO SCH (09:26)
[2021-10-04] MEDS: EZETIMIBE 10 MG TABLET PO SCH (09:26)
[2021-10-04] MEDS: CYANOCOBALAMIN (B-12) 500 MCG TABLET PO SCH (09:26)
[2021-10-04] MEDS: CITALOPRAM 20 MG TAB PO SCH (09:26)
--- NOTE | 2021-10-04 10:45 | Orthopedic Progress Note ---
Date of Service October 04, 2021 Assessment & Plan (1) Neurogenic claudication due to lumbar spinal stenosis: Plan: At this time we will continue physical therapy monitor MIKE operatively discharge on Wednesday. Admission and Anticipated Discharge Date Admission Date: October 03, 2021 Subjective Back pain is controlled leg pain markedly improved Physical Exam Physical Exam: Patient is in the chair at the bedside. Skin strength testing. Appears comfortable. Results & Data ([facility]) Vital Signs (Past 12 Hours) Vital Signs Temp Pulse Pulse Resp BP Pulse Ox 10/04/21 07:25 36.7 C 71 18 108/57 L 95 10/04/21 03:08 36.8 C 81 16 115/66 96 10/04/21 02:34 76 11 L 93
--- NOTE | 2021-10-04 14:37 | Hospitalist Progress Note ---
Date of Service October 04, 2021 Assessment & Plan (1) Status post lumbar surgery: Plan: S/P removal hardware L4-L5, decompression and fusion L3-L5 by Dr Mchugh on 10/03/21 Postoperative acute blood loss anemia Hb: 11.7>>8.8 Monitor CBC Bowel regimen to prevent constipation Pain control PT/OT when appropriate Orthopedics on board Continue Incentive spirometry Mild Leukocytosis Postoperative state Also on Decadron (2) CAD (coronary artery disease): Plan: Continue aspirin, statin, metoprolol, Isosorbide (3) PVD (peripheral vascular disease): Plan: S/P CABG in 1999 S/P Iliac artery stent in 1999 Continue aspirin, isosorbide, metoprolol succinate, rosuvastatin (4) Hypertension: Plan: Continue amlodipine, Cardura, losartan, metoprolol succinate Resume triamterene/HCTZ as able (5) Hyperlipidemia: Plan: -Continue rosuvastatin, Zetia (6) CKD (chronic kidney disease), stage III: Plan: Cr at baseline Monitor renal function Avoid nephrotoxic agents when possible (7) Hypothyroidism: Plan: Continue levothyroxine (8) Anemia: Plan: Chronic anemia Follows with hematology in [place] (9) Asthma: Plan: No signs of exacerbation Continue home inhalers (10) Anxiety: (11) Depression: Plan: -Continue Celexa (12) Sleep apnea: Plan: -CPAP HS DVT Px As per Primary Team Admission and Anticipated Discharge Date Admission Date: October 03, 2021 Subjective Patient is seen and examined at bedside Back pain at surgical site is controlled States having nausea yesterday which currently resolved No BM today Denies any chest pain, dyspnea, dizziness, abd pain Review of Systems Review of Systems: All systems reviewed & are unremarkable except as noted in Subjective Physical Exam Physical Exam: Physical Exam: Vitals signs as noted above General Appearance:Moderately built and nourished, no apparent distress Head: normocephalic, Atraumatic Eyes: normal inspection, EOMI Neck: supple, Trachea midline Respiratory/Chest: Decreased breath sounds, CTA, No accessory muscle use Cardiovascular: S1, S2, No murmur Abdomen/GI:Soft, Non tender, Bowel sounds present Back:+Brace Extremities/Musculoskeletal:normal inspection, no edema Neurologic/Psych:AAOX3, grossly no focal neurological deficits Skin: normal color, warm Results & Data Results & Data ([facility]) Vital Signs (Past 12 Hours) Vital Signs Temp Pulse Pulse Resp BP Pulse Ox 10/04/21 11:00 36.7 C 66 18 117/63 92 10/04/21 07:25 36.7 C 71 18 108/57 L 95 10/04/21 03:08 36.8 C 81 16 115/66 96 10/04/21 02:34 76 11 L 93 Laboratory Results Short CBC 10/04/21 Range/Units 06:39 WBC 11.86 H (4.8-10.8) K/uL Hgb 8.8 L (12.0-16.0) g/dL Hct 26.9 L (37-47) % Plt Count 172 (130-400) K/uL BMP 10/04/21 06:39 Sodium 136 Potassium 4.0 Chloride 105 Carbon Dioxide 25 BUN 30 H Creatinine 0.81 Glucose 102 H Calcium 8.0 L
[2021-10-04] MEDS: ISOSORBIDE MONO EXTENDED REL 60 MG TABCR PO SCH (20:25)
[2021-10-04] MEDS: DOXAZosin MESYLATE TAB 2 MG TAB PO SCH (20:25)
[2021-10-04] MEDS: amLODIPine BESYLATE 5 MG TAB PO SCH (20:25)
[2021-10-04] MEDS: DOCUSATE SODIUM/SENNA 50/8.6MG TAB PO SCH (20:26)
[2021-10-04] MEDS: MAGNESIUM OXIDE 400 MG TAB PO SCH (20:27)
[2021-10-04] MEDS: PANTOprazole 40 MG TAB PO SCH (20:27)
[2021-10-04] MEDS: ROSUVASTATIN CALCIUM 20 MG TAB PO SCH (20:27)
[2021-10-04] MEDS: ASPIRIN 81 MG ECTAB PO SCH (20:27)
[2021-10-05 05:46] LABS: Hematocrit (blood only) 26.3 % (37-47); Hemoglobin 8.6 g/dL (12.0-16.0); Mean Corpuscular Hemoglobin 32.5 pg (25-34); Mean Corpuscular Hgb Conc 32.7 g/dL (32-36); Mean Corpuscular Volume 99.2 fL (80-100); Mean Platelet Volume 11.4 fL (7.4-10.4); Platelet Count 162 K/uL (130-400); RDW Coefficient of Variation 13.5 % (11.5-14.5); RDW Standard Deviation 48.5 fL (36.4-46.3); Red Blood Count 2.65 M/uL (4.2-5.4); White Blood Count 11.65 K/uL (4.8-10.8)
[2021-10-05] MEDS: LEVOTHYROXINE SODIUM 75 MCG TABLET PO SCH (05:47)
[2021-10-05] MEDS: POLYETHYLENE (MIRALAX) 17 GM PACK PO SCH (05:47)
[2021-10-05 06:11] LABS: BUN Creatinine Ratio 39.7 (10-20); Calcium 9.3 mg/dl (8.5-10.1); Est GFR (African American) 91.4 ml/min; Est GFR (Non-African American) 78.9 ml/min; Potassium 4.3 mmol/L (3.5-5.1)
[2021-10-05] MEDS: ACETAMINOPHEN 500 MG TAB PO PRN (07:37)
[2021-10-05] MEDS: dexAMETHasone 6 MG in SYRINGE 0 ML IV SCH (08:14)
[2021-10-05] MEDS: CYANOCOBALAMIN (B-12) 500 MCG TABLET PO SCH (08:14)
[2021-10-05] MEDS: ISOSORBIDE MONO EXTENDED REL 30 MG TABCR PO SCH (08:14)
[2021-10-05] MEDS: MULTIVITAMIN TAB PO SCH (08:14)
[2021-10-05] MEDS: LOSARTAN POTASSIUM 50 MG TAB PO SCH (08:14)
[2021-10-05] MEDS: EZETIMIBE 10 MG TABLET PO SCH (08:15)
[2021-10-05] MEDS: CALCIUM CARBONATE 1250MG TAB PO SCH (08:15)
[2021-10-05] MEDS: METOPROLOL SUCC 50MG EXT REL TAB PO SCH (08:15)
[2021-10-05] MEDS: CITALOPRAM 20 MG TAB PO SCH (08:15)
--- NOTE | 2021-10-05 10:52 | Orthopedic Progress Note ---
Date of Service October 05, 2021 Assessment & Plan (1) Neurogenic claudication due to lumbar spinal stenosis: Plan: This time continue physical therapy monitor MIKE output anticipate discharge home tomorrow. Admission and Anticipated Discharge Date Admission Date: October 03, 2021 Subjective Back pain is controlled leg pain markedly improved Physical Exam Physical Exam: On physical exam she is ambulating with her walker. She is quite comfortable. Good strength testing. Results & Data ([facility]) Vital Signs (Past 12 Hours) Vital Signs Temp Pulse Resp BP Pulse Ox 10/05/21 07:07 36.8 C 72 18 134/73 94 10/05/21 04:00 12 10/04/21 22:24 36.6 C 72 18 112/55 L 94
--- NOTE | 2021-10-05 16:29 | Hospitalist Progress Note ---
Date of Service October 05, 2021 Assessment & Plan (1) Status post lumbar surgery: Plan: S/P removal hardware L4-L5, decompression and fusion L3-L5 by Dr Mchugh on 10/03/21 Postoperative acute blood loss anemia Hb: 11.7>8.8>8.6 Monitor CBC Bowel regimen to prevent constipation Pain control Continue PT/OT Orthopedics on board Continue Incentive spirometry No indication for blood transfusion Mild Leukocytosis Postoperative state Also on Decadron (2) CAD (coronary artery disease): Plan: Continue aspirin, statin, metoprolol, Isosorbide (3) PVD (peripheral vascular disease): Plan: S/P CABG in 1999 S/P Iliac artery stent in 1999 Continue aspirin, isosorbide, metoprolol succinate, rosuvastatin (4) Hypertension: Plan: Continue amlodipine, Cardura, losartan, metoprolol succinate continue to hold triamterene/HCTZ today (5) Hyperlipidemia: Plan: -Continue rosuvastatin, Zetia (6) CKD (chronic kidney disease), stage III: Plan: Cr at baseline Monitor renal function Avoid nephrotoxic agents when possible (7) Hypothyroidism: Plan: Continue levothyroxine (8) Anemia: Plan: Chronic anemia Follows with hematology in [place] (9) Asthma: Plan: No signs of exacerbation Continue home inhalers (10) Anxiety: (11) Depression: Plan: -Continue Celexa (12) Sleep apnea: Plan: -CPAP HS DVT Px As per Primary Team Admission and Anticipated Discharge Date Admission Date: October 03, 2021 Subjective Patient is seen and examined at bedside Back pain is well controlled Had BM today Denies any chest pain, dyspnea, dizziness, nausea, abd pain Review of Systems Review of Systems: All systems reviewed & are unremarkable except as noted in Subjective Physical Exam Physical Exam: Physical Exam: Vitals signs as noted above General Appearance:Moderately built and nourished, no apparent distress Head: normocephalic, Atraumatic Eyes: normal inspection, EOMI Neck: supple, Trachea midline Respiratory/Chest: Decreased breath sounds, CTA, No accessory muscle use Cardiovascular: S1, S2, No murmur Abdomen/GI:Soft, Non tender, Bowel sounds present Back:Surgical wound in dressing, +drain Extremities/Musculoskeletal:normal inspection, no edema Neurologic/Psych:AAOX3, grossly no focal neurological deficits Skin: normal color, warm Results & Data Results & Data ([facility]) Vital Signs (Past 12 Hours) Vital Signs Temp Pulse Resp BP Pulse Ox 10/05/21 14:00 36.7 C 72 18 117/63 92 10/05/21 07:07 36.8 C 72 18 134/73 94 Laboratory Results Short CBC 10/05/21 Range/Units 05:34 WBC 11.65 H (4.8-10.8) K/uL Hgb 8.6 L (12.0-16.0) g/dL Hct 26.3 L (37-47) % Plt Count 162 (130-400) K/uL BMP 10/05/21 05:34 Sodium 137 Potassium 4.3 Chloride 104 Carbon Dioxide 29 BUN 29 H Creatinine 0.73 Glucose 106 H Calcium 9.3
[2021-10-05] MEDS: ROSUVASTATIN CALCIUM 20 MG TAB PO SCH (20:26)
[2021-10-05] MEDS: ISOSORBIDE MONO EXTENDED REL 60 MG TABCR PO SCH (20:30)
[2021-10-05] MEDS: ASPIRIN 81 MG ECTAB PO SCH (20:31)
[2021-10-05] MEDS: amLODIPine BESYLATE 5 MG TAB PO SCH (20:31)
[2021-10-05] MEDS: DOCUSATE SODIUM/SENNA 50/8.6MG TAB PO SCH (20:31)
[2021-10-05] MEDS: PANTOprazole 40 MG TAB PO SCH (20:31)
[2021-10-05] MEDS: MAGNESIUM OXIDE 400 MG TAB PO SCH (20:31)
[2021-10-05] MEDS: DOXAZosin MESYLATE TAB 2 MG TAB PO SCH (20:31)
[2021-10-06] MEDS: LEVOTHYROXINE SODIUM 75 MCG TABLET PO SCH (05:50)
[2021-10-06 06:40] LABS: Hemoglobin 8.6 g/dL (12.0-16.0); Mean Corpuscular Hemoglobin 32.2 pg (25-34); Mean Corpuscular Hgb Conc 33.1 g/dL (32-36); Mean Corpuscular Volume 97.4 fL (80-100); Mean Platelet Volume 11.4 fL (7.4-10.4); Platelet Count 176 K/uL (130-400); RDW Coefficient of Variation 13.6 % (11.5-14.5); RDW Standard Deviation 47.9 fL (36.4-46.3); Red Blood Count 2.67 M/uL (4.2-5.4); White Blood Count 11.44 K/uL (4.8-10.8)
[2021-10-06 07:09] LABS: BUN Creatinine Ratio 42.7 (10-20); Calcium 9.2 mg/dl (8.5-10.1); Creatinine Clr Calc Pharmacy 47.7 ml/min; Est GFR (African American) 88.5 ml/min; Est GFR (Non-African American) 76.3 ml/min
[2021-10-06] MEDS: CITALOPRAM 20 MG TAB PO SCH (08:40)
[2021-10-06] MEDS: CYANOCOBALAMIN (B-12) 500 MCG TABLET PO SCH (08:40)
[2021-10-06] MEDS: dexAMETHasone 6 MG in SYRINGE 0 ML IV SCH (08:40)
[2021-10-06] MEDS: CALCIUM CARBONATE 1250MG TAB PO SCH (08:40)
[2021-10-06] MEDS: LOSARTAN POTASSIUM 50 MG TAB PO SCH (08:40)
[2021-10-06] MEDS: MULTIVITAMIN TAB PO SCH (08:41)
[2021-10-06] MEDS: EZETIMIBE 10 MG TABLET PO SCH (08:41)
[2021-10-06] MEDS: METOPROLOL SUCC 50MG EXT REL TAB PO SCH (08:41)
[2021-10-06] MEDS: ISOSORBIDE MONO EXTENDED REL 30 MG TABCR PO SCH (08:41)
[2021-10-06] MEDS ORDERED: TRIAMTERENE/HCTZ 37.5/25MG CAP PO SCH (09:00)
[2021-10-06] MEDS: traMADol HCL 50 MG TABLET PO PRN (11:26)
--- NOTE | 2021-10-06 13:33 | Discharge Summary ---
Date of Service October 06, 2021 Admission HPI Per Admitting Provider Patient is 76-year-old female with PMH HTN, HLD, CAD s/p CABG, CKD III, hypothyroidism, iron deficiency anemia, PVD s/p iliac artery stents in 1999, JILL, and others listed below seen in medical consultation s/p L3-L5 de compression and fusion today by Dr. Mchugh. Patient reports mild nausea. Is currently sipping on broth for lunch. Denies abdominal pain, vomiting, chest pain, shortness of breath. Reports slight low back pain. Denies lower extremity pain or paresthesias. Denies JUNIOR, dizziness, vision changes, neck pain, palpitations, cough, sore throat, choking, extremity edema, rashes, urinary symptoms. Principal Diagnosis Lumbar spinal stenosis with neurogenic claudication Discharge Data Allergies Allergy/AdvReac Type Severity Reaction Status Date / Time morphine Allergy Mild iv Verified 10/03/21 06:32 morphine - vomit oxycodone Allergy Mild very Verified 10/03/21 06:32 nauseated Consultations 10/03/21 12:08 Consult Hospitalist Routine Procedures Performed Operation Date: 10/03/21 07:45 Actual Procedures p L3-L4 Decompression and Fusion, Spinal Cord Monitoring(Not Applicable) - Mark Mchugh DO s L4-L5 Hardware Removal, (Not Applicable) - Mark Mchugh DO Ordered Studies 10/03/21 07:45 [place] lumbar spine 2-3V Routine Hospital Course (1) Neurogenic claudication due to lumbar spinal stenosis: Patient went lumbar decompression fusion tolerated so was taken to orthopedic for postoperative. Postop day 1 she was up and only ambulating progressed postop day 1 to postop day #3 pain was well controlled MIKE drain decreasing probably. Excellent strength testing. Subsequent discharge home. Discharge orders instructions were on the chart for further view. Total Time Total Time Spent Total Time Spent (In Minutes): 20 minutes Discharge Plan Discharge Items Patient Disposition: Home - Self-Care Reason For Visit: Spinal Stenosis, Lumbar Region with Neurogenic Discharge Diagnosis: Lumbar spinal stenosis with neurogenic medication Activity: As commented below Non-emergency contact: Primary Care Provider Call non-emergency contact if: you have any medication questions Follow-up/Referrals: Kareem Stanley [Primary Care Provider] - Diet: Regular Addtl Attending Provider Instructions: ACTIVITY RECOMMENDATIONS: SELF CARE INSTRUCTIONS AFTER THORACIC/LUMBAR FUSIONS 1. You may walk to your tolerance. It is good exercise for your legs and back. Expect some back and intermittent leg aches and pains. 2. You may perform "counter-top" level activities (make a sandwich, marychuy with a project, etc.). 3. No bending or lifting of more than 10 pounds or back twisting of any nature (roll like a log when turning in bed). 4. You may ride in a car for 20-30 minutes at a time. No driving until after your first visit with your doctor. 5. Frequent changes of position and restricting sitting to 30 minutes at a time will help limit the amount of back spasms and stiffness you may experience. 6. You may discontinue the use of ambulatory aids (cane, crutches, etc.) once your strength and confidence allow. 7. You may maintenance mechanic engine the shower and let water strike your incision when you arrive home at least once daily. Do not take a tub bath, sit in a hot tub or go into a swimming pool until after your first recheck in the office. SPECIAL CARE INSTRUCTIONS: VERY IMPORTANT TO READ AND REVIEW A. Your surgical incision has been closed with a cosmetic suture under the skin that will dissolve in about 6 weeks. In 14 days, you can use a pair of clean scissors and cut the suture that is left outside of the skin at the ends of your incision. 1. The small skin tapes can be removed 7 days after surgery if they have not fallen off by that point. 2. You may keep the wound open to air as much as possible to promote healing after post-op day number 5 unless told otherwise by your doctor. 3. If you think the wound looks like it is becoming infected (redness or worsening drainage) and/or you are experiencing fever, chill or worsening back pain and muscle spasms, contact the office so that we may evaluate you as soon as possible. B. Complications are uncommon, but please contact us if you have any signs or symptoms of: 1. wound infection (fever higher than 102.5 degrees F, redness, separation of wound, drainage, or increasing pain from the incision) 2. blood clots in legs (pain, swelling, redness and warmth in legs) 3. urinary tract infection (fever higher than 102.5 degrees F, burning upon urination or increased frequency of urination) 4. nerve problems (inability to walk on your toes or heels, numbness, loss of bowel or bladder control) 5. any other symptoms that concern you C. Please call the office at if you have any concerns or questions about your operation or recovery. D. No smoking! Smoking drastically decreases the chance of a solid fusion. E. Do not take any anti-inflammatory medications (Indocin, Advil, Motrin, Aspirin, Naprosyn, etc.) as these may inhibit the chance of a solid fusion. Tylenol is okay to take for pain. MANAGING PAIN AFTER SPINAL SURGERY 1. Narcotic medication is intended for short-term use and will be provided for surgical pain. Surgical pain usually lasts for a period of 4-6 weeks. Narcotic medication includes Percocet, Vicodin, Darvocet, Tylenol #3 or Lortab. 2. Longer-term pain is more appropriately treated with non-narcotic medication such as Tylenol ES. 3. Muscle spasm is not appropriately treated with narcotics. Muscle relaxers such as Soma, Flexeril or Skelaxin can be used along with Tylenol ES. 4. Remember that we all live with some "aches and pains". This is not unusual or uncommon after an injury or as we get older. a. Back pain is expected and may include muscle spasms for 4 to 6 weeks after surgery. The pain should gradually improve. If the pain worsens for no apparent reason, please contact the office. b. Intermittent leg pain may also be experienced and should not be concerned about unless it worsens for no apparent reason. If so, please contact the office. 5. We will provide appropriate medication within the normal guidelines of their prescribed use. We will also be very cautious and aware of potential abuse and extended duration of patients' medication needs. a. Pain medications are for your comfort and to assist with sleep and rest so that the tissue can heal. They are not provided in order to return to normal activity and should not be used through the day. To do so or worsening pain at night can result from ongoing tissue damage and development of tolerance to the prescribed medicine. 6. Please allow 2-3 days to process refills. Prescriptions will not be mailed but must be picked up at the office. FOLLOW UP VISIT: Keep your scheduled follow-up appointment. Any questions, please call the office at . Pending Studies at Discharge: No Stand-Alone Forms: My [facility], Opioid Pain Management, Smoking Cessation Medications and DC Order Prescriptions: New hydrocodone-acetaminophen 5-325 mg tablet See Rx Instructions .ROUTE .COMPLEX PRN (Reason: pain) Qty: 30 RF: 0 tramadol 50 mg tablet 50 mg PO Q6H PRN (Reason: pain, moderate) Qty: 30 RF: 0 Continued levothyroxine 75 mcg Tablet 75 mcg PO QAM RF: 0 albuterol sulfate 0.63 mg/3 mL Solution For Nebulization 0.63 mg INHALATION Q4H PRN (Reason: Wheezing) RF: 0 albuterol sulfate 90 mcg/actuation Hfa Aerosol Inhaler 2 puff INHALATION Q6H PRN (Reason: Wheezing) RF: 0 calcium 600 mg Capsule 600 mg PO QAM RF: 0 cyanocobalamin (vitamin B-12) [Vitamin B-12] 1,000 mcg Tablet Extended Release 1,000 mcg PO QAM RF: 0 metoprolol succinate 100 mg Tablet Extended Release 24 Hr 100 mg PO QAM RF: 0 amlodipine 2.5 mg Tablet 2.5 mg PO HS RF: 0 triamterene-hydrochlorothiazid 37.5-25 mg Capsule 1 cap PO UD RF: 0 isosorbide mononitrate 60 mg Tablet Extended Release 24 Hr 60 mg PO HS RF: 0 isosorbide mononitrate 60 mg Tablet Extended Release 24 Hr 90 mg PO QAM RF: 0 citalopram [Celexa] 20 mg Tablet 20 mg PO QAM RF: 0 potassium chloride [Klor-Con 8] 8 mEq Tablet Extended Release 8 meq PO QAM RF: 0 pantoprazole [Protonix] 40 mg Tablet,Delayed Release (Dr/Ec) 40 mg PO HS RF: 0 nitroglycerin 0.4 mg Tablet, Sublingual 0.4 mg sublingual UD PRN (Reason: Chest Pain) RF: 0 magnesium 250 mg Tablet 250 mg PO HS RF: 0 aspirin 81 mg Tablet 81 mg PO HS RF: 0 lorazepam 1 mg Tablet 1 mg PO HS RF: 0 losartan 100 mg Tablet 100 mg PO QAM RF: 0 multivitamin Capsule 1 cap PO QAM RF: 0 dicyclomine 10 mg Capsule 10 mg PO TID PRN (Reason: Pain) RF: 0 doxazosin [Cardura] 2 mg Tablet 2 mg PO HS RF: 0 ezetimibe [Zetia] 10 mg Tablet 10 mg PO QAM RF: 0 rosuvastatin [Crestor] 10 mg Tablet 20 mg PO HS RF: 0 Discharge Orders: Discharge Order (Routine); Ordered 10/06/21 Ordered By: Mark Conde/Other Patient Handouts: DVT Post Op Prevention, After Back Surgery: Going Home, Back Surg Daily Life Tips Admission Data Admit Date/Time: 10/03/21 09:58 Attending Provider: Mark Mchugh Admit Provider: Mark Mchugh Primary Care Provider: Kareem Stanley Other Providers: Luis Felipe Martinez ; Karla Degroot Other Interventions: Discharge Summary Assessment (RN) Last Done: 10/06/21 10:33
--- NOTE | 2021-10-06 15:13 | Hospitalist Progress Note ---
Date of Service October 06, 2021 Assessment & Plan (1) Status post lumbar surgery: Plan: S/P removal hardware L4-L5, decompression and fusion L3-L5 by Dr Mchugh on 10/03/21 Postoperative acute blood loss anemia Hb: 11.7>8.8>8.6 Monitor CBC Bowel regimen to prevent constipation Pain control Continue PT/OT Orthopedics on board Continue Incentive spirometry No indication for blood transfusion currently Needs follow up with Orthopedics upon discharge Mild Leukocytosis Postoperative state Also received Decadron (2) CAD (coronary artery disease): Plan: Continue aspirin, statin, metoprolol, Isosorbide (3) PVD (peripheral vascular disease): Plan: S/P CABG in 1999 S/P Iliac artery stent in 1999 Continue aspirin, isosorbide, metoprolol succinate, rosuvastatin (4) Hypertension: Plan: Continue amlodipine, Cardura, losartan, metoprolol succinate Resume triamterene/HCTZ upon discharge (5) Hyperlipidemia: Plan: -Continue rosuvastatin, Zetia (6) CKD (chronic kidney disease), stage III: Plan: Cr at baseline Monitor renal function Avoid nephrotoxic agents when possible (7) Hypothyroidism: Plan: Continue levothyroxine (8) Anemia: Plan: Chronic anemia Follows with hematology in [place] (9) Asthma: Plan: No signs of exacerbation Continue home inhalers (10) Anxiety: (11) Depression: Plan: -Continue Celexa (12) Sleep apnea: Plan: -CPAP HS DVT Px As per Primary Team Admission and Anticipated Discharge Date Admission Date: October 03, 2021 Subjective Patient is seen and examined at bedside Doing well today No new complaints Denies any back pain at surgical site Also denies any chest pain, dyspnea, dizziness, nausea, abd pain Review of Systems Review of Systems: All systems reviewed & are unremarkable except as noted in Subjective Physical Exam Physical Exam: Physical Exam: Vitals signs as noted above General Appearance:Moderately built and nourished, no apparent distress Head: normocephalic, Atraumatic Eyes: normal inspection, EOMI Neck: supple, Trachea midline Respiratory/Chest: Decreased breath sounds, CTA, No accessory muscle use Cardiovascular: S1, S2, No murmur Abdomen/GI:Soft, Non tender, Bowel sounds present Back:Surgical wound in dressing, +drain Extremities/Musculoskeletal:normal inspection, no edema Neurologic/Psych:AAOX3, grossly no focal neurological deficits Skin: normal color, warm Results & Data Results & Data ([facility]) Vital Signs (Past 12 Hours) Vital Signs Temp Pulse Pulse Resp BP Pulse Ox 10/06/21 07:32 36.6 C 61 18 138/62 94 10/06/21 03:29 67 13 93 Laboratory Results Short CBC 10/06/21 Range/Units 06:30 WBC 11.44 H (4.8-10.8) K/uL Hgb 8.6 L (12.0-16.0) g/dL Hct 26.0 L (37-47) % Plt Count 176 (130-400) K/uL BMP 10/06/21 06:30 Sodium 138 Potassium 4.0 Chloride 105 Carbon Dioxide 29 BUN 32 H Creatinine 0.75 Glucose 85 Calcium 9.2
== END 2021-10-06 12:45 | disposition home or self-care (01) | DRG 454 ==
LOC: ASU 05:59 → 3W 09:58

== ENCOUNTER 2023-02-25 08:47 | Inpatient (IN) ==
--- NOTE | 2023-02-03 10:09 | PAT Medication Instructions ---
Medication Instructions Date of Service February 03, 2023 Home Medications Medication Instructions Recorded tramadol 50 mg tablet 50 mg PO Q6H PRN pain, moderate 10/04/21 #30 tabs amlodipine 2.5 mg tablet 2.5 mg PO HS aspirin 81 mg tablet 81 mg PO HS calcium 600 mg capsule 600 mg PO QAM citalopram 20 mg tablet (Celexa) 20 mg PO QAM cyanocobalamin (vitamin B-12) 1,000 mcg tablet,extended release (Vitamin B-12 ER) 1,000 mcg PO QAM dicyclomine 10 mg capsule 10 mg PO TID PRN doxazosin 2 mg tablet (Cardura) 2 mg PO HS ezetimibe 10 mg tablet (Zetia) 10 mg PO QAM isosorbide mononitrate 60 mg tablet,extended release 24 hr 60 mg PO HS isosorbide mononitrate 60 mg tablet,extended release 24 hr 90 mg PO QAM lorazepam 1 mg tablet 1 mg PO HS losartan 100 mg tablet 100 mg PO QAM magnesium 250 mg tablet 250 mg PO HS metoprolol succinate 100 mg tablet,extended release 24 hr 100 mg PO QAM multivitamin 1 cap PO QAM nitroglycerin 0.4 mg sublingual tablet 0.4 mg sublingual UD PRN pantoprazole 40 mg tablet,delayed release (Protonix) 40 mg PO HS potassium chloride 8 mEq tablet,extended release (Klor-Con) 8 meq PO QAM rosuvastatin 10 mg tablet (Crestor) 20 mg PO HS triamterene 37.5 mg-hydrochlorothiazide 25 mg capsule 1 cap PO UD albuterol sulfate 0.63 mg/3 mL solution for nebulization 0.63 mg inhalation Q4H PRN albuterol sulfate 90 mcg/actuation aerosol inhaler 2 puff inhalation Q6H PRN levothyroxine 75 mcg tablet 75 mcg PO QAM tramadol 50 mg tablet 50 mg PO Q6H PRN Continue as directed nitroglycerin 0.4 mg sublingual tablet 0.4 mg sublingual UD PRN(if needed) DO NOT take the morning of surgery calcium 600 mg capsule 600 mg PO QAM cyanocobalamin (vitamin B-12) 1,000 mcg tablet,extended release (Vitamin B-12 ER) 1,000 mcg PO QAM dicyclomine 10 mg capsule 10 mg PO TID PRN losartan 100 mg tablet 100 mg PO QAM multivitamin 1 cap PO QAM potassium chloride 8 mEq tablet,extended release (Klor-Con) 8 meq PO QAM triamterene 37.5 mg-hydrochlorothiazide 25 mg capsule 1 cap PO UD Take morning of surgery With a small sip of water, OTHERWISE NOTHING TO EAT OR DRINK AFTER MIDNIGHT: citalopram 20 mg tablet (Celexa) 20 mg PO QAM ezetimibe 10 mg tablet (Zetia) 10 mg PO QAM isosorbide mononitrate 60 mg tablet,extended release 24 hr 90 mg PO QAM metoprolol succinate 100 mg tablet,extended release 24 hr 100 mg PO QAM albuterol sulfate 0.63 mg/3 mL solution for nebulization 0.63 mg inhalation Q4H PRN(if needed) albuterol sulfate 90 mcg/actuation aerosol inhaler 2 puff inhalation Q6H PRN(use if needed; please bring with you to hospital day of surgery if possible) levothyroxine 75 mcg tablet 75 mcg PO QAM tramadol 50 mg tablet 50 mg PO Q6H PRN(if needed) Take evening before surgery amlodipine 2.5 mg tablet 2.5 mg PO HS aspirin 81 mg tablet 81 mg PO HS (unless directed otherwise by surgeon) dicyclomine 10 mg capsule 10 mg PO TID PRN(if needed) doxazosin 2 mg tablet (Cardura) 2 mg PO HS isosorbide mononitrate 60 mg tablet,extended release 24 hr 60 mg PO HS lorazepam 1 mg tablet 1 mg PO HS magnesium 250 mg tablet 250 mg PO HS pantoprazole 40 mg tablet,delayed release (Protonix) 40 mg PO HS rosuvastatin 10 mg tablet (Crestor) 20 mg PO HS albuterol sulfate 0.63 mg/3 mL solution for nebulization 0.63 mg inhalation Q4H PRN(if needed) albuterol sulfate 90 mcg/actuation aerosol inhaler 2 puff inhalation Q6H PRN(if needed) tramadol 50 mg tablet 50 mg PO Q6H PRN(if needed) Other Notes If you have any questions please call us at [phone] or [phone] or [phone] or [phone]
--- NOTE | 2023-02-08 10:19 | Anesthesiology Consultation ---
Date of Service February 08, 2023 Assessment & Plan (1) Encounter for pre-operative examination: - COVID screening: Per assessment on 02/08: No known COVID-19 positive contacts or current COVID-19 related symptoms. Travel screen negative. Patient vaccinated. At surgeon discretion if preop Covid testing being done. - Outpatient joint assessment: Pt currently scheduled for inpatient pathway. If surgeon requests review for outpatient joint pathway, patient is not recommended candidate for outpatient joint program from anesthesia standpoint. - S/P L3-4 decompression/fusion, hardware removal (10/03/21): Grade 2 view, MAC#3, ETT 7.0 at [facility]. Anesthesia postop progress note, "no major complications apparent and Pt Satisfied with anesthetic care.. postop somnolence after extubation, hypotensive responsive to BP medications and fluid bolus." - Received most recent cardiology visit note- this was greater than 1 year ago (cardiology office says patient was not scheduled for 1 year followup as recommended). Reviewed with Dr. Akbar- he recommends preop cardiology evaluation obtained. Patient made aware that cardiology preop evaluation needed and will likely need to postpone surgery unless cardiology able to schedule prior to current DOS. Per Yumiko at Dr. Real's office, cardiology is not able to get her in until after surgery at this time (first available 03/15)- she states she will contact patient and have preop cardiology appt scheduled as soon as they can. Jemima at surgeon's office made aware. - Patient acceptable risk for surgery pending cardiology preop evaluation (Dr. Real's office, appt TBD). Chart Review Chart Review: Patient seen in Pre Admission Testing Teaching & Discussion Pre-Anesthesia Teaching/Discussion Notes: Instructed NPO after midnight before surgery,except medications with 15 cc of water. Medication instructions provided according to the PAT guidelines. History Surgery Operation Date: 02/25/23 10:45 Proposed Procedures p Left Total Shoulder Arthroplasty Reverse - Nestor Varma M.D. Height/Weight Height: 4 ft 10 in Weight: 58.1 kg Allergies Allergy/AdvReac Type Severity Reaction Status Date / Time morphine AdvReac Mild IV Verified 02/08/23 10:18 morphine - vomiting oxycodone AdvReac Mild very Verified 02/08/23 10:24 nauseated, "goofy" Medications Home Medications Medication Instructions Recorded Confirmed Last Taken amlodipine 2.5 mg tablet 2.5 mg PO 01/23/21 01/28/23 10/02/21 20:00 aspirin 81 mg tablet 81 mg PO 01/23/21 01/28/23 09/29/21 20:00 calcium 600 mg capsule 600 mg PO [facility] 01/23/21 01/28/23 10/02/21 08:00 citalopram 20 mg tablet (Celexa) 20 mg PO [facility] 01/23/21 01/28/23 10/03/21 04:30 cyanocobalamin (vitamin B-12) 1,000 mcg PO [facility] 01/23/21 01/28/23 10/02/21 08:00 1,000 mcg tablet,extended release (Vitamin B-12 ER) dicyclomine 10 mg capsule 10 mg PO TID PRN Abdominal Pain 01/23/21 01/28/23 Unknown doxazosin 2 mg tablet (Cardura) 2 mg PO 01/23/21 01/28/23 10/02/21 20:00 ezetimibe 10 mg tablet (Zetia) 10 mg PO [facility] 01/23/21 01/28/23 10/02/21 08:00 isosorbide mononitrate 60 mg 60 mg PO 01/23/21 01/28/23 10/02/21 20:00 tablet,extended release 24 hr isosorbide mononitrate 60 mg 90 mg PO [facility] 01/23/21 01/28/23 10/03/21 04:30 tablet,extended release 24 hr lorazepam 1 mg tablet 1 mg PO 01/23/21 01/28/23 10/02/21 20:00 losartan 100 mg tablet 100 mg PO [facility] 01/23/21 01/28/23 10/03/21 04:30 magnesium 250 mg tablet 250 mg PO 01/23/21 01/28/23 10/02/21 20:00 metoprolol succinate 100 mg 100 mg PO [facility] 01/23/21 01/28/23 10/03/21 04:30 tablet,extended release 24 hr multivitamin 1 cap PO [facility] 01/23/21 01/28/23 10/02/21 08:00 nitroglycerin 0.4 mg sublingual 0.4 mg sublingual UD PRN Chest Pain 01/23/21 01/28/23 Unknown tablet pantoprazole 40 mg tablet,delayed 40 mg PO HS 01/23/21 01/28/23 10/02/21 20:00 release (Protonix) potassium chloride 8 mEq 8 meq PO QAM 01/23/21 01/28/23 10/02/21 08:00 tablet,extended release (Klor-Con) rosuvastatin 10 mg tablet (Crestor) 20 mg PO HS 01/23/21 01/28/23 10/02/21 20:00 triamterene 37.5 1 cap PO UD 01/23/21 01/28/23 10/01/21 08:00 mg-hydrochlorothiazide 25 mg capsule albuterol sulfate 0.63 mg/3 mL 0.63 mg inhalation Q4H PRN Wheezing 07/16/21 01/28/23 Unknown solution for nebulization albuterol sulfate 90 mcg/actuation 2 puff inhalation Q6H PRN Wheezing 07/16/21 01/28/23 Unknown aerosol inhaler levothyroxine 75 mcg tablet 75 mcg PO QAM 07/16/21 01/28/23 10/03/21 04:30 tramadol 50 mg tablet 50 mg PO Q6H PRN pain, moderate 10/04/21 01/28/23 Unknown #30 tabs Past Medical History Medical History Anemia No recent blood transfusion - no recent issues Follows with Yuri Molina Anxiety Asthma Stable CAD (coronary artery disease) CABG x3 (1999) Following with Dr. 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 s/p iliac artery stents in 1999 Sleep apnea CPAP (non-compliant) Exercise / Class Metabolic Activity II 4-5 Yardwork/Stairs/Walk up hill (one FS (no CP, no SOB)) Past Family History Family History Other No family history of adverse response to anesthesia No known health problems Past Surgical History Surgical History History of bunionectomy of right great toe x2 History of cardiac cath 2020, no stents History of carpal tunnel surgery of left wrist History of coronary artery bypass graft CABG x3 (1999) History of esophagogastroduodenoscopy (EGD) History of left cataract extraction History of right cataract extraction History of total left knee replacement History of total right knee replacement Hx of cholecystectomy Hx of colonoscopy Hx of shoulder surgery right rotator cuff repair Hx of sinus surgery Hx of thumb surgery right S/P epidural steroid injection S/P lumbar fusion Status post lumbar surgery L3-4 decompression/fusion, hardware removal (10/03/21): Grade 2 view, MAC#3, ETT 7.0 at [facility]. Anesthesia postop progress note, "no major complications apparent and Pt Satisfied with anesthetic care.. postop somnolence after e xtubation, hypotensive responsive to BP medications and fluid bolus." Status post trigger finger release left finger Past Anesthesia History No Family Hx of Anesthesia Complications and Other L3-4 decompression/fusion, hardware removal (10/03/21): Grade 2 view, MAC#3, ETT 7.0 at [facility]. Anesthesia postop progress note, "no major complications apparent and Pt Satisfied with anesthetic care.. postop somnolence after extubation, hypotensive responsive to BP medications and fluid bolus." History of PONV No Hx of PONV and Hx of Motion Sickness (+ Vertigo) Social History Smoking Status: Never smoker Do You Dip or Chew Tobacco: No Hx Alcohol Use: Yes Alcohol type: wine alcohol intake frequency: holidays/special occasions only Hx Substance Use: No substance use type: does not use Review of Systems Patient denies chest pain, shortness of breath, dyspnea on exertion, fever, chills, cough, wheezing, palpitations. Physical Exam Vital Signs VITALS BP 151/79 P 52 TEMP 98.2 SP02 97%RA RESP 16 PHYSICAL Full cervical extension range of motion. Full TMJ range of motion. TMD 3 finger breaths Mallampati Score 2 Dentition: upper right side tooth missing, + implant (unknown location) Lungs: clear throughout to auscultation Cardiac: regular rate and rhythm, no murmurs noted Spine: normal Carotid arteries: negative bruit Extremities: no LE edema Lab Results Anesthesia Preop Results Results Anesthesia Widget: Na 139 mmol/L (136-145) 02/08/23 K 3.8 mmol/L (3.5-5.1) 02/08/23 Cl 104 mmol/L (98-107) 02/08/23 CO2 29 mmol/L (21-32) 02/08/23 BUN 24 mg/dl (6-23) H 02/08/23 Creat 0.83 mg/dl (0.6-1.2) 02/08/23 Glucose Level 83 mg/dl (70-99(Fasting)) 02/08/23 PT 11.8 Seconds (9.0-12.0) 02/08/23 PTT 25.5 Seconds (21.0-31.0) 02/08/23 INR 1.1 (0.9-1.1) 02/08/23 HA1c 5.6 % (4.5-5.6) 02/08/23 Urine Color Yellow 02/08/23 Urine Appearance Clear (Clear) 02/08/23 Urine pH 6.5 (4.5-7.5) 02/08/23 Urine Specific [place] 1.020 (1.000-1.030) 02/08/23 Urine Protein Negative (Negative) 02/08/23 Urine Glucose (UA) Negative (Negative) 02/08/23 Urine Ketones Negative (Negative) 02/08/23 Urine Blood Negative (Negative) 02/08/23 Urine Nitrite Negative (Negative) 02/08/23 Urine Bilirubin Negative (Negative) 02/08/23 Urine Urobilinogen Negative (Negative) 02/08/23 Urine Leukocyte Esterase Negative (Negative) 02/08/23 Blood Type O Positive 02/08/23 Antibody Screen NEGATIVE 02/08/23 Testing Laboratory Results 02/04/23 WBC 7.38 H/H 10.8/34.0 PLATELETS 221 Electrocardiogram Date: 02/08/23 SB with first degree AVB at 59bpm. Otherwise normal ECG. Chest X-Ray Date: 02/08/23 FINDINGS: PA and lateral chest radiographs are compared to study dated 01/29/2021. The patient is status post midline sternotomy. The heart is enlarged noting atherosclerotic calcification and uncoiling of the thoracic aorta. The pulmonary vasculature is noncongested. Chronic interstitial thickening is similar to previous. There is bibasilar scarring/atelectasis. The lungs and pleural spaces are otherwise clear. There is no pneumothorax. The skeletal structures are osteopenic. The bony thorax appears intact. Degenerative change is noted in the shoulders and spine. Fusion hardware is seen in the lumbar spine. IMPRESSION: No active disease in the chest. Echocardiogram Date: 08/28/21 EF 55%. Wall motion is normal. No RWMA. Mildly increased wall thickess. RVSP 19mmhg. Mild MR. Moderate LAD. Grade 2 DD. Stress Test Date: 09/06/19 Normal myocardial perfusion SPECT images without evidence for pharmacologically induced ischemia. Normal LV motion and thickening. Normal LVEF 53%. Cardiac Catheterization Date: 06/10/20 LM = distal 20% stenosis LAD = mid 40% stenosis. RICHTER is atretic/occluded. Circumflex = mild atherosclerosis RCA 70% mid chronic total occlusion. SVG to RPDA, occluded midway. Distal RCA is filling retrograde from LAD artery. Severe single vessel CAD. Occluded vein graft to RPDA, RICHTER to LAD. Normal LV systolic function at 55%. 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 Significant stenosis of left common carotid artery. Per cardiology note (12/31/20): "70% mid RCA occlusion and distal total occlusion, saphenous vein graft to RCA was occluded, distal RCA fills via collaterals from the LAD, left internal mammary artery bypass graft to the LAD was occluded ( medical therapy advised)." COVID-19 Risk Screen Screening Information COVID-19 Screen Date: 02/08/23 Exposure 21 Days Family/Household +COVID Last 21 Days: No Exposure 10 Days Any COVID Exposure Last 10 Days: No Symptoms Last 10 Days Experienced COVID Sx Last 10 Days: No + COVID 0-90 Days COVID + in Last 0-90 Days: No
--- NOTE | 2023-02-24 21:29 | History & Physical Report ---
Date of Service February 24, 2023 Assessment & Plan (1) Primary osteoarthritis, left shoulder: Plan: She has left shoulder pain that is consistent with osteoarthritis and rotator cuff tearing. We have been doing conservative treatment with numerous injections over the past several years with decreasing efficacy and overall worsening of her pain and function. This is progressed to the point where she would like to proceed with shoulder replacement surgery to help with this pain. I think is reasonable. MRI shows diffuse rotator cuff tearing, and she would therefore be best served with a reverse total shoulder arthroplasty rather than anatomic. I showed her models of this, and we discussed expected functional outcomes with this implant. She understands and wishes to proceed. Risks, benefits, and alternatives of surgery were explained in detail. The surgical procedure, as well as postoperative recovery and rehabilitation, was also explained in detail. Risks include bleeding; infection; damage to surrounding structures such as nerves, blood vessels, and tendons that run in the area; persistent pain or stiffness; hardware failure; dislocation; brachial plexus palsy; blood clots; or need for further surgery. The patient understands all of this and wishes to proceed with surgery. Risks will be reviewed on the day of surgery and informed consent obtained. History of Present Illness Chief Complaint: Chronic left shoulder pain Primary Care Provider: Kaerem Stanley Ms. Granda returns today for her chronic left shoulder pain. Again, this has been bothersome for several years. I have injected her in May 2020, August 2020, and February 2021. She gets moderate but relatively short-lived relief from these injections. We have previously discussed proceeding with a reverse total shoulder arthroplasty, but she had some other medical issues to deal with. The shoulder pain continues to be very limiting to her. She has a lot of pain with activities of daily living. This is progressively worsening over the years. She did undergo spine surgery in September 2021 with persistent pain requiring inj ections. She has gone through an open heart surgery with triple bypass in 1999. Her current instrument tech is Dr. Greco in [place]. Allergies Allergy/AdvReac Type Severity Reaction Status Date / Time morphine AdvReac Mild IV Verified 02/08/23 10:18 morphine - vomiting oxycodone AdvReac Mild very Verified 02/08/23 10:24 nauseated, "goofy" Home Medications Medication Instructions Recorded Confirmed Type amlodipine 2.5 mg tablet 2.5 mg PO HS 01/23/21 01/28/23 History aspirin 81 mg tablet 81 mg PO HS 01/23/21 01/28/23 History calcium 600 mg capsule 600 mg PO QAM 01/23/21 01/28/23 History citalopram 20 mg tablet (Celexa) 20 mg PO QAM 01/23/21 01/28/23 History cyanocobalamin (vitamin B-12) 1,000 mcg PO QAM 01/23/21 01/28/23 History 1,000 mcg tablet,extended release (Vitamin B-12 ER) dicyclomine 10 mg capsule 10 mg PO TID PRN Abdominal Pain 01/23/21 01/28/23 History doxazosin 2 mg tablet (Cardura) 2 mg PO HS 01/23/21 01/28/23 History ezetimibe 10 mg tablet (Zetia) 10 mg PO [facility] 01/23/21 01/28/23 History isosorbide mononitrate 60 mg 60 mg PO HS 01/23/21 01/28/23 History tablet,extended release 24 hr isosorbide mononitrate 60 mg 90 mg PO [facility] 01/23/21 01/28/23 History tablet,extended release 24 hr lorazepam 1 mg tablet 1 mg PO HS 01/23/21 01/28/23 History losartan 100 mg tablet 100 mg PO [facility] 01/23/21 01/28/23 History magnesium 250 mg tablet 250 mg PO 01/23/21 01/28/23 History metoprolol succinate 100 mg 100 mg PO [facility] 01/23/21 01/28/23 History tablet,extended release 24 hr multivitamin 1 cap PO [facility] 01/23/21 01/28/23 History nitroglycerin 0.4 mg sublingual 0.4 mg sublingual UD PRN Chest Pain 01/23/21 01/28/23 History tablet pantoprazole 40 mg tablet,delayed 40 mg PO HS 01/23/21 01/28/23 History release (Protonix) potassium chloride 8 mEq 8 meq PO [facility] 01/23/21 01/28/23 History tablet,extended release (Klor-Con) rosuvastatin 10 mg tablet (Crestor) 20 mg PO HS 01/23/21 01/28/23 History triamterene 37.5 1 cap PO UD 01/23/21 01/28/23 History mg-hydrochlorothiazide 25 mg capsule albuterol sulfate 0.63 mg/3 mL 0.63 mg inhalation Q4H PRN Wheezing 07/16/21 01/28/23 History solution for nebulization albuterol sulfate 90 mcg/actuation 2 puff inhalation Q6H PRN Wheezing 07/16/21 01/28/23 History aerosol inhaler levothyroxine 75 mcg tablet 75 mcg PO QAM 07/16/21 01/28/23 History tramadol 50 mg tablet 50 mg PO Q6H PRN pain, moderate 10/04/21 01/28/23 Rx #30 tabs Past Med/Surg History Medical History Anemia No recent blood transfusion - no recent issues Follows with Yuri Molina Anxiety Asthma Stable CAD (coronary artery disease) CABG x3 (1999) Following with Dr. 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 s/p iliac artery stents in 1999 Sleep apnea CPAP (non-compliant) Surgical History History of bunionectomy of right great toe x2 History of cardiac cath 2019, no stents History of carpal tunnel surgery of left wrist History of coronary artery bypass graft CABG x3 (1999) History of esophagogastroduodenoscopy (EGD) History of left cataract extraction History of right cataract extraction History of total left knee replacement History of total right knee replacement Hx of cholecystectomy Hx of colonoscopy Hx of shoulder surgery right rotator cuff repair Hx of sinus surgery Hx of thumb surgery right S/P epidural steroid injection S/P lumbar fusion Status post lumbar surgery L3-4 decompression/fusion, hardware removal (10/03/21): Grade 2 view, MAC#3, ETT 7.0 at [facility]. Anesthesia postop progress note, "no major complications apparent and Pt Satisfied with anesthetic care.. postop somnolence after extubation, hypotensive responsive to BP medications and fluid bolus." Status post trigger finger release left finger Family History Other No family history of adverse response to anesthesia No known health problems Social History Smoking Status: Never smoker Second Hand Exposure: No; Do You Dip or Chew Tobacco: No; Tobacco Cessation Education Requested by Patient: No Hx Alcohol Use: Yes Alcohol type: wine Hx Substance Use: No Preferred Language: Slovenian Communication Ability: Effective Angle Bender Required: No Beliefs That Will Affect Care: None marital status: arr Current Living Situation: Spouse current occupational status: retired How many Children do You have: 2 Other Information That Helps Us Care for You: No Feels Safe at Home: Yes Safety Concerns: Feels Safe At This Time Assistive Devices: Cane Assistive Devices Comment: cane prn Physical Exam Physical Exam: Examination of the right shoulder shows moderate limitation in shoulder range of motion due to pain, with palpable crepitus during motion. Rotator cuff strength is globally weak. Results & Data Diagnostic Findings Previous x-rays of the left shoulder from December 2022 were reviewed and compared with previous x-rays from April 2020. There has been fairly significant progression of her glenohumeral joint arthritis, now moderate to severe. No obvious proximal migration humeral head, but there are remodeling changes of the greater tuberosity and sclerosis of the superior aspect of the humeral head likely consistent with rotator cuff tear arthropathy. New MRI of the left shoulder obtained this morning was independently interpreted by me. It shows severe arthritic degeneration of the glenohumeral joint with complete joint space collapse and diffuse subchondral cyst formation. There is diffuse rotator cuff tearing and severe thinning, with very few tendon fibers remaining in the infraspinatus and supraspinatus tendons. There is moderate associated fatty atrophy of both muscle bellies. There is a complete tear of the anterior aspect of the supraspinatus with large subchondral cyst formation in the area consistent with rotator cuff tear arthropathy. It appears that the proximal biceps tendon is ruptured.
[~2023-02-25 08:47] MED LIST: ACETAMINOPHEN 500 MG TAB PO SCH; BUPIVACAINE 0.5 % 5 MG/1 ML PF 10ML VIAL ONE; CeleBREX 200 MG CAP PO SCH; DEXAMETHASONE SOD INJ 4 MG/ML VIAL ONE; FAMOTIDINE 20 MG TAB PO SCH; GABAPENTIN 300 MG CAP PO SCH; LIDOCAINE 2% 2 ML VIAL/AMP(20MG/ML) INFIL ONE; LR 15ML/HR IV SCH; LR 60ML/HR IV SCH; METOCLOPRAMIDE HCL 10 MG TABLET PO SCH; MIDAZOLAM HCL 1 MG/ML 2ML VIAL ONE; ONDANSETRON INJ 2 MG/ML 2 ML VIAL ONE; PROPOFOL IV EMULSION 10 MG/ML 20 ML VIAL IV ONE; ROCURONIUM BROMIDE 10 MG/ML 5 ML VIAL IV ONE; SUGAMMADEX SODIUM 200 MG/2 ML VIAL IV ONE; TRANEXAMIC ACID 1,000 MG **IV Pre-op IV SCH; ceFAZolin 2000MG 2,000 MG/15 ML SYR IV SCH; dexAMETHasone 4 MG TAB PO SCH; fentaNYL citrate PF 100 MCG/2 ML VIAL ONE
[2023-02-25] MEDS ORDERED: ATROPINE SULFATE 0.1 MG/ML 10ML SYR IV PRN (09:59)
[2023-02-25] MEDS ORDERED: fentaNYL citrate PF 100 MCG/2 ML VIAL IV PRN (09:59)
[2023-02-25] MEDS ORDERED: ONDANSETRON INJ 2 MG/ML 2 ML VIAL IV PRN ×2 (09:59→15:40)
[2023-02-25] MEDS ORDERED: ePHEDrine sulfate 50 MG/ML AMP IV PRN (09:59)
--- NOTE | 2023-02-25 11:34 | History & Physical Bridge Note ---
Date of Service February 25, 2023 History & Physical Bridge Note I have examined the patient, reviewed the History & Physical and in the interval since the performance of the History & Physical I have noted the following changes of clinical significance: no changes noted
[2023-02-25] MEDS ORDERED: ePHEDrine sulfate 50 MG/ML AMP ONE ×2 (12:27→13:25)
--- NOTE | 2023-02-25 13:27 | Operative Report ---
Post Operative Report Pre & Post Diagnosis Operation Date: 02/25/23 10:35 Pre-Op Diagnosis: Left shoulder glenohumeral joint arthritis with rotator cuff tear Post-Op Diagnosis: Left shoulder glenohumeral joint arthritis with rotator cuff tear I identified the patient and participated in the time-out.: Yes Procedure Operation Date: 02/25/23 10:35 Actual Procedures Left reverse total shoulder arthroplasty (37143) Open biceps tenodesis (19951) - Nestor Varam M.D. Surgeon Nestor Varma MD Manager Event Robson Carmichael PA-C Estimated Blood Loss 75 Findings Consistent with Post-Op Diagnosis Specimens None Drains None Anesthesia Type General Regional Complications none Disposition Disposition: Recovery Room Indications Ms. Granda is a 77-year-old female with chronic left shoulder pain. History, clinical exam, and imaging were consistent with the above diagnosis. Risks, benefits, and alternatives of surgery were explained in detail. The patient understood all this and wished to proceed. Description of Procedure Components Implanted: Tornier Reverse Total Shoulder implants Perform glenoid baseplate: 25mm, 15 degree full wedge with 6.5mm central screw and 5.0mm peripheral screws x 4 Glenosphere: 36mm standard Ascend Flex humeral stem: 4B Standard length (78mm) Humeral tray: 3.5 mm offset, +0mm thickness Polyethylene insert: 36mm, +9mm thickness Patient was identified in the preoperative holding area. Operative extremity was marked. Regional blockade was given by the Anesthesia Staff. Patient was then brought back to the operating room, and general anesthesia was induced without complication. Appropriate weight-based dose of Ancef was infused intravenously for antibiotic prophylaxis. The patient was then placed in the beachchair position. Left arm was then prepped and draped in a standard sterile fashion using Chlorhexidine prep. A standard deltopectoral incision was made through the skin and subcutaneous tissue. The cephalic vein was identified and retracted medially. Small branches to the deltoid were coagulated as necessary. The clavipectoral fascia was then incised and the subdeltoid space was opened. The rotator cuff was found to be deficient, and I therefore decided to perform a reverse total shoulder arthroplasty as planned preoperatively. The biceps tendon was identified within the bicipital groove and tenodesed at the superior border of the pectoralis tendon with #2 FiberWire suture. The biceps tendon was then divided proximal to the tenodesis site and the rotator interval was opened. The proximal portion of the biceps tendon was excised. The remaining subscapularis tendon was elevated subperiosteally off of the lesser tuberosity. The glenohumeral joint was then dislocated, and large osteophytes were debrided with a ronguer. The intramedullary canal of the humerus was then opened with a canal finder. The humeral head cut was then made in the appropriate inclination and version using the cutting guide. The humeral canal was then sequentially broached to the appropriate size. A protective cap was then placed on top of the humeral trial. I then turned my attention to the glenoid. The proximal stump of the biceps tendon was excised, along with the labrum circumferentially around the glenoid. The Blueprint drill guide was then positioned on the glenoid, and the guidepin was then inserted. The 15 degree angled reamer was then inserted over the guidepin and an reamed to an appropriate depth. The central screw hole was drilled, and appropriate length 6.5mm central screw was selected. The baseplate was then implanted into place according to our preoperative Blueprint plan by tightening down the central screw. A peripheral 5mm nonlocking screw was placed postero-superiorly first for additional compression of the baseplate, and then additional locking 5 mm peripheral screws were placed to complete fixation of the baseplate. Glenosphere was then impacted and secured. A trial humeral tray and insert were placed on the trial humeral stem, and a trial reduction was carried out. Once I achieved acceptable joint stability and range of motion with the trial implants, the final humeral implants were assembled on the back table and then impacted into position. I then took the shoulder through full range of motion to ensure good stability and acceptable motion. Wound was then copiously irrigated with sterile saline. Deep fascia was closed with 0 V-lock suture. Subcutaneous tissue was closed with 2-0 V-lock, and skin was closed with 3-0 V-lock. Skin was then sealed with Dermabond. Sterile dressings were then applied with a waterproof silver-impregnated dressing, and the arm was placed into a sling. The patient was awakened from anesthesia and taken to the Post Anesthesia Care Unit in stable condition. There were no immediate complications from the procedure. I was present and scrubbed for the entire procedure, with the exception of final skin closure and dressing application. Due to the complex nature of the procedure, the entire surgery was performed with the operational assistance of Robson Carmichael PA-C. The development assistant, under direct supervision, was involved in the performance of all aspects of the surgical procedure including hemostasis, tissue incision and retraction, instrument management, patient positioning, and wound closure. I attest to the content of the Intraoperative Record and any orders documented therein. Any exceptions are noted below.
--- NOTE | 2023-02-25 14:30 | Anesthesiology Progress Note ---
Date of Service February 25, 2023 Anesthesia Post Procedure Vital Signs Vital Signs: Temp Pulse Pulse Resp BP Pulse Ox O2 Del Method 02/25/23 14:25 69 20 108/60 95 Room Air 02/25/23 14:15 65 18 110/63 100 Oxymask 02/25/23 14:05 66 19 118/60 100 Oxymask 02/25/23 13:56 95.9 F L 71 16 120/58 L 97 Oxymask 02/25/23 09:15 97.9 F 54 L 18 147/75 H 100 Room Air O2 Flow Rate 02/25/23 14:25 02/25/23 14:15 10 02/25/23 14:05 10 02/25/23 13:56 10 02/25/23 09:15 Transfer of Care Handoff Completed per policy Notes Mental Status: alert / awake / arousable and participated in evaluation Patient Amnestic to Procedure: Yes Nausea / Vomiting: adequately controlled Pain: adequately controlled Airway Patency, RR, SpO2: stable & adequate BP & HR: stable & adequate Hydration State: stable & adequate Anesthetic Complications: no major complications apparent and Pt Satisfied with anesthetic care
--- NOTE | 2023-02-25 15:15 | XRay Report ---
LEFT SHOULDER 2 VIEWS CLINICAL HISTORY: Postoperative examination. FINDINGS: 2 portable views of the left shoulder are obtained. No prior studies are available for mackenzie blanca at the time of dictation. The skeletal structures are osteopenic. A left shoulder arthroplasty is in near anatomic alignment. No acute fracture is seen. Soft tissue edema and subcutaneous gas ove rlying the left shoulder are expected postsurgical changes. Mild productive degenerative change is no edmund at the acromioclavicular joint. The patient is status post midline sternotomy. The left lung pare nchyma is clear as visualized noting basilar atelectasis. IMPRESSION: Expected postoperative findings status post left shoulder arthroplasty. No acute fracture is seen. Electronically signed by: Avtar Costello M.D. 02/25/2023 3:14 PM
[2023-02-25] MEDS ORDERED: NITROGLYCERIN SL 0.4 MG/TAB TAB SL PRN (15:40)
[2023-02-25] MEDS ORDERED: NALOXONE HCL 0.4 MG/1 ML VIAL/CARP IV PRN (15:40)
[2023-02-25] MEDS ORDERED: bisacodyL 10 MG SUPP PR PRN (15:40)
[2023-02-25] MEDS ORDERED: DICYCLOMINE HCL 10 MG CAP PO PRN (15:40)
[2023-02-25] MEDS ORDERED: NON-FORMULARY MEDICATION (Albuterol Sulfate 0.63 mg/3 mL Solution For Nebulization) INH PRN (15:40)
[2023-02-25] MEDS ORDERED: METOCLOPRAMIDE HCL INJ 5 MG/ML 2 ML VIAL IV PRN (15:40)
[2023-02-25] MEDS ORDERED: MAGNESIUM HYDROXIDE SUSP 30 ML UDC PO PRN (15:40)
[2023-02-25] MEDS ORDERED: oxyCODONE HCL IR 5 MG TAB (IMMEDIATE RELEASE) PO PRN (15:40)
[2023-02-25] MEDS ORDERED: ALBUTEROL HFA 8 GM INHALER INH PRN (15:40)
[2023-02-25] MEDS: SODIUM CHLORIDE 0.9% 1000ML 1,000 ML IV SCH (16:02)
[2023-02-25] MEDS: ACETAMINOPHEN 500 MG TAB PO SCH (17:53)
[2023-02-25] MEDS ORDERED: DOXAZosin MESYLATE TAB 2 MG TAB PO SCH (21:00)
[2023-02-25] MEDS ORDERED: LORazepam 1 MG TAB PO SCH (21:00)
[2023-02-25] MEDS ORDERED: ISOSORBIDE MONO EXTENDED REL 60 MG TABCR PO SCH (21:00)
[2023-02-25] MEDS ORDERED: PANTOprazole 40 MG TAB PO SCH (21:00)
[2023-02-25] MEDS ORDERED: ROSUVASTATIN CALCIUM 20 MG TAB PO SCH (21:00)
[2023-02-25] MEDS ORDERED: SENNA 8.6 MG TAB PO SCH (21:00)
[2023-02-25] MEDS ORDERED: ASPIRIN 325 MG ECTAB PO SCH (21:00)
[2023-02-25] MEDS ORDERED: MAGNESIUM OXIDE 400 MG TAB PO SCH (21:00)
[2023-02-25] MEDS ORDERED: amLODIPine BESYLATE 5 MG TAB PO SCH (21:00)
[2023-02-25] MEDS: DOCUSATE SODIUM 100 MG CAP PO SCH (21:04)
[2023-02-25] MEDS: ceFAZolin 1000MG 1,000 MG/7.5 ML SYR IV SCH (21:08)
[2023-02-26] MEDS: ACETAMINOPHEN 500 MG TAB PO SCH ×2 (00:41→05:19)
[2023-02-26] MEDS: SODIUM CHLORIDE 0.9% 1000ML 1,000 ML IV SCH (02:36)
[2023-02-26] MEDS: ceFAZolin 1000MG 1,000 MG/7.5 ML SYR IV SCH (05:19)
[2023-02-26] MEDS ORDERED: LEVOTHYROXINE SODIUM 75 MCG TABLET PO SCH (06:30)
[2023-02-26 07:25] LABS: Basophils # (auto) 0.03 K/uL (0-0.2); Basophils % (auto) 0.3 %; Hematocrit (blood only) 26.6 % (37.0-47.0); Hemoglobin 9.1 g/dl (12.0-16.0); Immature Granulocytes # (auto) 0.08 K/uL (0.01-0.20); Immature Granulocytes % (auto) 0.7 %; Lymphocytes # (auto) 0.95 K/uL (1.2-3.4); Lymphocytes % (auto) 8.6 %; Mean Corpuscular Hgb Conc 34.2 g/dL (32.0-36.0); Mean Corpuscular Volume 96.4 fL (80.0-100.0); Mean Platelet Volume 12.3 fL (9.4-12.4); Monocytes # (auto) 0.77 K/uL (0.11-0.59); Neutrophils # (auto) 9.18 K/uL (1.40-6.50); Neutrophils % (auto) 83.4 %; Platelet Count 165 K/uL (130-400); RDW Coefficient of Variation 12.4 % (11.5-14.5); RDW Standard Deviation 43.8 fL (36.4-46.3); Red Blood Count 2.76 M/uL (4.20-5.40); White Blood Count 11.01 K/ul (4.8-10.8)
--- NOTE | 2023-02-26 07:38 | Orthopedic Progress Note ---
Date of Service February 26, 2023 Assessment & Plan (1) Status post reverse arthroplasty of left shoulder: Plan: 77 yo female stable POD #1 s/p reverse left TSA 1. Med management 2. DVT prophylaxis- ASA, SCDs 3. PT/OT 4. D/C planning- home w/ OPPT Admission and Anticipated Discharge Date Admission Date: February 25, 2023 Subjective Pt resting in bed, denies complaints, pain controlled Physical Exam Physical Exam: Silverlon dressing in place, fingers mobile, NVI Results & Data Vital Signs (Past 12 Hours) Vital Signs Temp Pulse Pulse Resp BP Pulse Ox O2 Del Method 02/26/23 07:20 36.7 C 82 18 112/62 94 Room Air 02/26/23 06:36 119/68 02/26/23 03:00 37.1 C 82 18 92/54 L 93 Room Air 02/25/23 21:10 Nasal Cannula 02/25/23 23:12 36.8 C 77 18 100/59 L 92 Room Air 02/25/23 21:07 71 102/65 98 Nasal Cannula O2 Flow Rate 02/26/23 07:20 02/26/23 06:36 02/26/23 03:00 02/25/23 21:10 2 02/25/23 23:12 02/25/23 21:07 2 Laboratory Results 02/26/23 02/26/23 Range/Units 06:13 06:13 WBC 11.01 H (4.8-10.8) K/ul RBC 2.76 L (4.20-5.40) M/uL Hgb 9.1 L (12.0-16.0) g/dl Hct 26.6 L (37.0-47.0) % MCV 96.4 (80.0-100.0) fL MCH 33.0 (25.0-34.0) pg MCHC 34.2 (32.0-36.0) g/dL RDW Std Deviation 43.8 (36.4-46.3) fL RDW Coeff of Daisy 12.4 (11.5-14.5) % Plt Count 165 (130-400) K/uL MPV 12.3 (9.4-12.4) fL Immature Gran % (Auto) 0.7 % Neut % (Auto) 83.4 % Lymph % (Auto) 8.6 % [place] % (Auto) 7.0 % Eos % (Auto) 0.0 % Baso % (Auto) 0.3 % Neut # (Auto) 9.18 H (1.40-6.50) K/uL Lymph # (Auto) 0.95 L (1.2-3.4) K/uL [place] # (Auto) 0.77 H (0.11-0.59) K/uL Eos # (Auto) 0.00 (0-0.50) K/uL Baso # (Auto) 0.03 (0-0.2) K/uL Immature Gran # (Auto) 0.08 (0.01-0.20) K/uL Sodium Pending Potassium Pending Chloride Pending Carbon Dioxide Pending Anion Gap Pending BUN Pending Creatinine Pending Est Cr Clr Drug Dosing Pending Est GFR ( Amer) Pending Est GFR (Non-Af Amer) Pending BUN/Creatinine Ratio Pending Glucose Pending Calcium Pending
[2023-02-26] MEDS: DOCUSATE SODIUM 100 MG CAP PO SCH (07:46)
[2023-02-26 07:48] LABS: BUN Creatinine Ratio 31.4 (10-20); Calcium 8.6 mg/dl (8.6-10.3); Creatinine Clr Calc Pharmacy 32.7 ml/min; Est GFR (African American) 58.5 ml/min; Est GFR (Non-African American) 50.5 ml/min; Potassium 3.8 mmol/L (3.5-5.1)
[2023-02-26] MEDS ORDERED: MULTIVITAMIN TAB PO SCH (09:00)
[2023-02-26] MEDS ORDERED: CALCIUM CARBONATE 1250MG TAB PO SCH (09:00)
[2023-02-26] MEDS ORDERED: EZETIMIBE 10 MG TABLET PO SCH (09:00)
[2023-02-26] MEDS ORDERED: LOSARTAN POTASSIUM 50 MG TAB PO SCH (09:00)
[2023-02-26] MEDS ORDERED: POTASSIUM CHLORIDE 10 MEQ TABCR PO SCH (09:00)
[2023-02-26] MEDS ORDERED: CYANOCOBALAMIN (B-12) 500 MCG TABLET PO SCH (09:00)
[2023-02-26] MEDS ORDERED: TRIAMTERENE/HCTZ 37.5/25MG CAP PO SCH (09:00)
[2023-02-26] MEDS ORDERED: METOPROLOL SUCC 50MG EXT REL TAB PO SCH (09:00)
[2023-02-26] MEDS ORDERED: NON-FORMULARY MEDICATION (Multivitamin Capsule) PO SCH (09:00)
[2023-02-26] MEDS ORDERED: CITALOPRAM 20 MG TAB PO SCH (09:00)
[2023-02-26] MEDS ORDERED: ISOSORBIDE MONO EXTENDED REL 30 MG TABCR PO SCH (09:00)
[2023-02-26] MEDS ORDERED: ASPIRIN 325 MG ECTAB PO SCH (09:00)
--- NOTE | 2023-02-26 13:23 | Discharge Summary ---
Date of Service February 26, 2023 Admission HPI Per Admitting Provider Ms. Granda returns today for her chronic left shoulder pain. Again, this has been bothersome for several years. I have injected her in May 2020, August 2020, and February 2021. She gets moderate but relatively short-lived relief from these injections. We have previously discussed proceeding with a reverse total shoulder arthroplasty, but she had some other medical issues to deal with. The shoulder pain continues to be very limiting to her. She has a lot of pain with activities of daily living. This is progressively worsening over the years. She did undergo spine surgery in September 2021 with persistent pain requiring injections. She has gone through an open heart surgery with triple bypass in 1999. Her current neuroscientist is Dr. Greco in [place]. Principal Diagnosis Left shoulder arthritis with rotator cuff tear Discharge Data Allergies Allergy/AdvReac Type Severity Reaction Status Date / Time morphine AdvReac Mild IV Verified 02/25/23 09:07 morphine - vomiting oxycodone AdvReac Mild very Verified 02/25/23 09:07 nauseated, "goofy" Procedures Performed Operation Date: 02/25/23 10:35 Actual Procedures p Left Total Shoulder Arthroplasty Reverse(Left) - Nestor Varma M.D. Ordered Studies 02/25/23 05:00 US - OR guided needle placemen Routine Hospital Course (1) Primary osteoarthritis, left shoulder: Patient underwent a left reverse total shoulder arthroplasty on the date of admission. Patient tolerated the procedure well and was transferred up to the general orthopedic surgery floor in stable condition. Perioperative antibiotic coverage was initiated, and continued for 24 hours postoperatively. DVT prophy laxis was initiated consisting of SCDs and aspirin 325 mg daily. Perioperative pain control regimen was transitioned to strictly oral pain medications by postoperative day 1. On postoperative day 1 the patient was doing very well. Pain was well controlled, and patient was mobilizing well with therapy. Patient was determined be safe and ready for discharge to home. Total Time Total Time Spent Total Time Spent (In Minutes): 15 Discharge Plan Discharge Items Patient Disposition: Home - Self-Care Reason For Visit: Left Shoulder Rotator Cuff Arthropathy Discharge Diagnosis: Left shoulder glenohumeral joint arthritis with rotator cuff tear Activity: Per Instructions section Non-emergency contact: Surgeon Call non-emergency contact if: your pain is not controlled, your temperature is above 101.5, your wound has increased redness and your wound has increased drainage Follow-up/Referrals: Kareem Stanley [Primary Care Provider] - Nestor Varma M.D. [Physician] - Diet: Heart Healthy Addtl Attending Provider Instructions: Things to Watch Out For -Go to the Emergency Room if you have sudden onset of nausea, vomiting, chest pain, shortness of breath, or uncontrollable pain. -Call the clinic or go to the Emergency Room if you have a sudden increase in the amount of wound drainage or the drainage becomes thick, yellow or green, or foul-smelling. -For routine questions, call the clinic at [phone] during regular business hours (8am-5pm). For urgent issues after regular business hours, you may call the clinic to be connected to the on-call physician. Dressings -A special waterproof, silver-impregnated dressing was placed on your shoulder. Keep this dressing in place for 1 week after surgery. You may shower with the waterproof dressing in place, but do not soak the dressing in the bathtub or pool. -One week after surgery, you may remove the waterproof dressing. You may continue to shower, and let water run BRIEFLY over the incision, but do not soak the incision in the bathtub or pool for 2 weeks. You may also gently clean the incision with mild soap and water; pat the incision dry after cleaning-do not rub the incision. Apply a new dressing daily thereafter. Shoulder Exercises -Keep your operative shoulder in the sling for comfort, except as detailed below. -You should come out of the sling 4-5 times a day for passive pendulum exercises: lean over and swing your arm in a circular pattern. -You should also do active-assisted forward flexion exercises: use your opposite hand to lift your operative arm forward to 90 degrees. -Do not flex your elbow (curl motion) or supinate your forearm (rotating palm up) against resistance. -Do not use your arm to push yourself up out of bed or up from a seated position. Ice Pack -You may use an ice pack for pain relief. You should use it 20-30 minutes at a time. Place a towel between the ice pack and your skin to prevent frostbite. -You should use the ice pack fairly regularly for the first 1-2 weeks after surgery to help reduce pain and inflammation. -About 2 weeks after your surgery, you should start using heat to loosen up your shoulder prior to doing your stretching exercises, then use the cooling sleeve after your exercises are complete to reduce swelling and pain. Pain Medicines -Your prescriptions for pain medications have already been sent to the pharmacy on file at [facility]. -You have been prescribed an anti-inflammatory (Motrin/ibuprofen) and a non- narcotic pain medicine (Tylenol/acetaminophen). These are your primary pain medications. Take them each every 6 hours as instructed. It is recommended that you stagger these medicines every 3 hours (i.e. take ibuprofen at 8:00 am, then acetaminophen at 11:00 am, then ibuprofen at 2:00 pm, etc) -DO NOT take any additional anti-inflammatories (Advil, Aleve/naproxen, Mobic/meloxicam, Celebrex) or any additional Tylenol/acetaminophen products with these prescribed medications. -You have also been prescribed an additional narcotic pain medication (oxycodone). Take this medicine ONLY for breakthrough pain not controlled by the ibuprofen and acetaminophen. -Do not drive or operate heavy machinery while taking the narcotic medication. -Common side effects of narcotic pain medicines include itching, nausea, c onstipation, and feeling "loopy". However, if you develop a rash or hives, stop taking the medicine and call the clinic. If you develop swelling in your throat or difficulty breathing, go to the Emergency Room or call 911 IMMEDIATELY. -You may take over the counter stool softeners if needed for constipation. Aspirin -Take a full strength (325mg) aspirin every day for 4 weeks (28 days) to prevent blood clots. -If you were taking a baby aspirin (81mg) prior to surgery, you may resume taking this 81mg dose after you complete the 28-day course of the 325mg strength dose; do not take the 325mg dose in addition to your 81mg dose. -Be aware that you will bruise easier while taking Aspirin; this is normal. However, if you develop a significantly large area of swelling after an injury, or have a cut that will not stop bleeding, call the clinic or go to the Emergency Room immediately. Pending Studies at Discharge: No Stand-Alone Forms: My [facility], Pain - Opioid Pain Management Medications and DC Order Prescriptions: Continued levothyroxine 75 mcg Tablet 75 mcg PO QAM albuterol sulfate 0.63 mg/3 mL Solution For Nebulization 0.63 mg INHALATION Q4H PRN (Reason: Wheezing) albuterol sulfate 90 mcg/actuation Hfa Aerosol Inhaler 2 puff INHALATION Q6H PRN (Reason: Wheezing) calcium 600 mg Capsule 600 mg PO QAM cyanocobalamin (vitamin B-12) [Vitamin B-12] 1,000 mcg Tablet Extended Release 1,000 mcg PO QAM metoprolol succinate 100 mg Tablet Extended Release 24 Hr 100 mg PO QAM amlodipine 2.5 mg Tablet 2.5 mg PO HS triamterene-hydrochlorothiazid 37.5-25 mg Capsule 1 cap PO UD Rx Instructions: wed - wed, wed isosorbide mononitrate 60 mg Tablet Extended Release 24 Hr 60 mg PO HS isosorbide mononitrate 60 mg Tablet Extended Release 24 Hr 90 mg PO QAM citalopram [Celexa] 20 mg Tablet 20 mg PO QAM potassium chloride [Klor-Con 8] 8 mEq Tablet Extended Release 8 meq PO QAM pantoprazole [Protonix] 40 mg Tablet,Delayed Release (Dr/Ec) 40 mg PO HS nitroglycerin 0.4 mg Tablet, Sublingual 0.4 mg sublingual UD PRN (Reason: Chest Pain) magnesium 250 mg Tablet 250 mg PO HS lorazepam 1 mg Tablet 1 mg PO HS losartan 100 mg Tablet 100 mg PO QAM multivitamin Capsule 1 cap PO QAM dicyclomine 10 mg Capsule 10 mg PO TID PRN (Reason: Abdominal Pain) doxazosin [Cardura] 2 mg Tablet 2 mg PO HS ezetimibe [Zetia] 10 mg Tablet 10 mg PO QAM rosuvastatin [Crestor] 10 mg Tablet 20 mg PO HS Held aspirin 81 mg Tablet 81 mg PO HS Hold Instructions: Resume on 03/25/23. Take the prescribed 325mg dose of aspirin for 4 weeks, then resume your normal 81mg dose Discontinued tramadol 50 mg tablet 50 mg PO Q6H PRN (Reason: pain, moderate) Qty: 30 0RF Discharge Orders: Discharge Order (Routine); Ordered 02/26/23 Ordered By: Robson Conde/Other Patient Handouts: DVT Post Op Prevention Admission Data Admit Date/Time: 02/26/23 07:50 Attending Provider: Nestor Varma Admit Provider: Nestor Varma Primary Care Provider: Kareem Stanley Other Interventions: Discharge Summary Assessment (RN) Last Done: 02/26/23 08:52
== END 2023-02-26 11:19 | disposition home or self-care (01) | DRG 483 ==
LOC: 3E 08:47 → ASU 08:47

== ENCOUNTER 2023-02-27 10:08 | Observation (INO) ==
[2023-02-27] MEDS ORDERED: SODIUM CHLORIDE 0.9% 1000ML 1,000 ML IV SCH ×2 (10:30→15:24)
--- NOTE | 2023-02-27 10:34 | Emergency Department Note ---
History of Present Illness General Chief complaint: Illness Stated complaint: NAUSEA, ABDOMINAL PAIN, VOMITING, RECENT SURGERY Time Seen by Provider: 02/27/23 10:18 History of Present Illness Maximum Pain Intensity: 8 77-year-old female presents emergency department with complaint of nausea vomiting abdominal cramps some diarrhea. Patient is status post left shoulder surgery and was discharged last evening. Patient states that she was feeling well until she got home she started to have abdominal cramping some diarrhea and increased urination. States that she is currently taking Tylenol and Motrin. Patient denies any chest pain shortness of breath fever cough cold congestion sy mptoms. Patient states that she did not feel well after she was discharged. Home Medications Medication Instructions Recorded Confirmed Type amlodipine 2.5 mg tablet 2.5 mg PO HS 01/23/21 02/27/23 History aspirin 81 mg tablet 81 mg PO 01/23/21 02/27/23 History calcium 600 mg capsule 600 mg PO [facility] 01/23/21 02/27/23 History citalopram 20 mg tablet (Celexa) 20 mg PO [facility] 01/23/21 02/27/23 History cyanocobalamin (vitamin B-12) 1,000 mcg PO [facility] 01/23/21 02/27/23 History 1,000 mcg tablet,extended release (Vitamin B-12 ER) dicyclomine 10 mg capsule 10 mg PO TID PRN Abdominal Pain 01/23/21 02/27/23 History doxazosin 2 mg tablet (Cardura) 2 mg PO HS 01/23/21 02/27/23 History ezetimibe 10 mg tablet (Zetia) 10 mg PO [facility] 01/23/21 02/27/23 History isosorbide mononitrate 60 mg 60 mg PO 01/23/21 02/27/23 History tablet,extended release 24 hr isosorbide mononitrate 60 mg 90 mg PO [facility] 01/23/21 02/27/23 History tablet,extended release 24 hr lorazepam 1 mg tablet 1 mg PO 01/23/21 02/27/23 History losartan 100 mg tablet 100 mg PO [facility] 01/23/21 02/27/23 History magnesium 250 mg tablet 250 mg PO 01/23/21 02/27/23 History metoprolol succinate 100 mg 100 mg PO [facility] 01/23/21 02/27/23 History tablet,extended release 24 hr multivitamin 1 cap PO QAM 01/23/21 02/27/23 History nitroglycerin 0.4 mg sublingual 0.4 mg sublingual UD PRN Chest Pain 01/23/21 02/27/23 History tablet pantoprazole 40 mg tablet,delayed 40 mg PO HS 01/23/21 02/27/23 History release (Protonix) potassium chloride 8 mEq 8 meq PO QAM 01/23/21 02/27/23 History tablet,extended release (Klor-Con) rosuvastatin 10 mg tablet (Crestor) 20 mg PO HS 01/23/21 02/27/23 History triamterene 37.5 1 cap PO UD 01/23/21 02/27/23 History mg-hydrochlorothiazide 25 mg capsule albuterol sulfate 0.63 mg/3 mL 0.63 mg inhalation Q4H PRN Wheezing 07/16/21 02/27/23 History solution for nebulization albuterol sulfate 90 mcg/actuation 2 puff inhalation Q6H PRN Wheezing 07/16/21 02/27/23 History aerosol inhaler levothyroxine 75 mcg tablet 75 mcg PO QAM 07/16/21 02/27/23 History acetaminophen 1 tab PO Q6H 02/27/23 02/27/23 History aspirin 325 mg tablet 325 mg PO DAILY 02/27/23 02/27/23 History ibuprofen 600 mg tablet 600 mg PO Q6H 02/27/23 02/27/23 History oxycodone See Rx Instructions .Route 02/27/23 02/27/23 History .COMPLEX PRN Pain Allergies Allergy/AdvReac Type Severity Reaction Status Date / Time morphine AdvReac Mild IV Verified 02/25/23 09:07 morphine - vomiting oxycodone AdvReac Mild very Verified 02/25/23 09:07 nauseated, "goofy" Past Med/Surg History Medical History Anemia No recent blood transfusion - no recent issues Follows with Yuri Molina Anxiety Asthma Stable CAD (coronary artery disease) CABG x3 (1999) Following with Dr. 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 s/p iliac artery stents in 1999 Sleep apnea CPAP (non-compliant) Surgical History History of bunionectomy of right great toe x2 History of cardiac cath 2020, no stents History of carpal tunnel surgery of left wrist History of coronary artery bypass graft CABG x3 (1999) History of esophagogastroduodenoscopy (EGD) History of left cataract extraction History of right cataract extraction History of total left knee replacement History of total right knee replacement Hx of cholecystectomy Hx of colonoscopy Hx of shoulder surgery right rotator cuff repair Hx of sinus surgery Hx of thumb surgery right S/P epidural steroid injection S/P lumbar fusion Status post lumbar surgery L3-4 decompression/fusion, hardware removal (10/03/21): Grade 2 view, MAC#3, ETT 7.0 at [facility]. Anesthesia postop progress note, "no major complications apparent and Pt Satisfied with anesthetic care.. postop somnolence after extubation, hypotensive responsive to BP medications and fluid bolus." Status post trigger finger release left finger Family History Other No family history of adverse response to anesthesia No known health problems Social History Smoking Status: Never smoker Second Hand Exposure: No; Do You Dip or Chew Tobacco: No; Hx Alcohol Use: Yes Alcohol type: wine Hx Substance Use: No Preferred Language: [place] Communication Ability: Effective College Athlete Required: No Beliefs That Will Affect Care: None marital status: arr Current Living Situation: Spouse current occupational status: retired How many Children do You have: 2 Feels Safe at Home: Yes Assistive Devices: Cane Review of Systems A total of 10 systems reviewed and were otherwise negative Constitutional: + weakness Gastrointestinal: + diarrhea/loose stools Physical Exam Vital Signs Vital Signs - 24 hr 02/27/23 10:13 02/27/23 11:14 02/27/23 12:02 Temperature 36.9 C Temperature Source Temporal Artery Scan Pulse Rate 68 Pulse Rate [Right Finger] 71 73 Pulse Rhythm [Right Finger] Regular Regular Pulse Strength [Right Finger] Normal Normal Respiratory Rate 18 18 20 Respiratory Effort / Characteristics Non-Labored Non-Labored Non-Labored Respiratory Depth Normal Normal Normal Respiratory Pattern Regular Regular Regular Blood Pressure 97/56 L Blood Pressure [Right Arm] 117/52 L 123/62 Blood Pressure Mean 69 Blood Pressure Mean [Right Arm] 73 82 Blood Pressure Position [Right Arm] Sitting Lying Pulse Oximetry 96 92 93 Oxygen Delivery Method Room Air Room Air Room Air Sepsis Recent Fever Within 48 Hours No Sepsis New/Unexplained Change in Mental Status N/A Sepsis Action Taken by Nursing No Action Required 02/27/23 12:17 Temperature Temperature Source Pulse Rate 77 Pulse Rate [Right Finger] Pulse Rhythm [Right Finger] Pulse Strength [Right Finger] Respiratory Rate Respiratory Effort / Characteristics Respiratory Depth Respiratory Pattern Blood Pressure Blood Pressure [Right Arm] Blood Pressure Mean Blood Pressure Mean [Right Arm] Blood Pressure Position [Right Arm] Pulse Oximetry Oxygen Delivery Method Sepsis Recent Fever Within 48 Hours Sepsis New/Unexplained Change in Mental Status Sepsis Action Taken by Nursing GENERAL: Patient is awake alert in no acute distress patient is resting comfortably and showing no signs of anxiety EYES: The conjunctivae are clear. The pupils are round and reactive. EARS, NOSE, MOUTH AND THROAT: The nose is without any evidence of any deformity. Mucous membranes are moist. Tongue is midline. NECK: The neck is nontender and supple. RESPIRATORY: Normal respiratory effort is noted there is no evidence of wheezing rhonchi or rales CARDIOVASCULAR: Regular rate and rhythm noted there no murmurs rubs or gallops normal S1 normal S2. GASTROINTESTINAL: The abdomen is soft. Abdomen is nontender. BACK: No midline tenderness or or step-off noted range of motion in flexion extension as well as rotation no signs of muscle spasm noted MUSCULOSKELETAL/EXTREMITIES: Left upper extremity exam reveals areas of bandaged surgical site and significant ecchymosis to the left upper extremity, the patient is neurovascularly intact distally there is no drainage from the left upper extremity SKIN: There is no obvious evidence of any rash. Positive ecchymosis noted in left upper extremity NEUROLOGIC: Patient is awake alert and oriented x3 strength is symmetric Course Reevaluation(s) Reevaluation #1: Patient's resting in no distress was given IV fluids. Time: 13:29 Consultations Consultation #1: Case was discussed with the [facility] for admission Time: 13:00 Administered Medications Discontinued Medications Sodium Chloride (Nss 1000ml) 1,000 mls @ 999 mls/hr IV .Q1H1M REJI Stop: 02/27/23 11:30 Last Infusion: 02/27/23 11:32 Dose: 0 mls/hr Documented By: Admin: 02/27/23 10:39 Dose: 999 mls/hr Documented By: LESLY Medical Decision Making Medical Records Attestation: I reviewed the patient's medical records. Home Medications Current Medication List: was personally reviewed by me Laboratory Data Attestation: I reviewed the patient's lab results. Lab work shows an elevated white blood cell count, a hemoglobin of 9 which appears to be stable, and elevated BUN consistent with dehydration 02/27/23 10:30 02/27/23 10:30 Lab Results 02/27/23 02/27/23 02/27/23 Range/Units 10:30 10:30 10:30 WBC 18.20 H (4.8-10.8) K/ul RBC 2.81 L (4.20-5.40) M/uL Hgb 9.0 L (12.0-16.0) g/dl Hct 27.3 L (37.0-47.0) % MCV 97.2 (80.0-100.0) fL MCH 32.0 (25.0-34.0) pg MCHC 33.0 (32.0-36.0) g/dL RDW Std Deviation 45.8 (36.4-46.3) fL RDW Coeff of Daisy 12.8 (11.5-14.5) % Plt Count 166 (130-400) K/uL MPV 12.0 (9.4-12.4) fL Immature Gran % (Auto) 0.7 % Neut % (Auto) 82.7 % Lymph % (Auto) 5.9 % [place] % (Auto) 10.4 % Eos % (Auto) 0.1 % Baso % (Auto) 0.2 % Neut # (Auto) 15.05 H (1.40-6.50) K/uL Lymph # (Auto) 1.07 L (1.2-3.4) K/uL [place] # (Auto) 1.90 H (0.11-0.59) K/uL Eos # (Auto) 0.01 (0-0.50) K/uL Baso # (Auto) 0.04 (0-0.2) K/uL Immature Gran # (Auto) 0.13 (0.01-0.20) K/uL PT 11.6 (9.0-12.0) Seconds INR 1.1 (0.9-1.1) APTT 22.8 (21.0-31.0) Seconds PTT Ratio 0.8 Sodium 135 L (136-145) mmol/L Potassium 3.8 (3.5-5.1) mmol/L Chloride 103 (98-107) mmol/L Carbon Dioxide 26 (21-32) mmol/L Anion Gap 6 (3-11) BUN 35 H (6-23) mg/dl Creatinine 1.02 (0.6-1.2) mg/dl Est Cr Clr Drug Dosing Not Reportable Est GFR ( Amer) 60.6 ml/min Est GFR (Non-Af Amer) 52.3 ml/min BUN/Creatinine Ratio 34.3 H (10-20) Glucose 106 H (70-99(Fasting)) mg/dl Lactate (0.4-2.0) mmol/L Calcium 9.1 (8.6-10.3) mg/dl Magnesium 1.8 (1.7-2.4) mg/dl Total Bilirubin 0.5 (0.2-1.0) mg/dl Direct Bilirubin 0.1 (0-0.2) mg/dl AST 21 (13-39) U/L ALT 6 L (7-52) U/L Alkaline Phosphatase 43 (34-104) U/L Troponin I High Sens 9.4 (0-14) pg/ml Total Protein 6.0 (6.0-8.3) gm/dl Albumin 3.4 (3.4-5.0) gm/dl Procalcitonin (0-0.5) ng/ml Urine Color Urine Appearance (Clear) Urine pH (4.5-7.5) Ur Specific [place] (1.000-1.030) Urine Protein (Negative) Urine Glucose (UA) (Negative) Urine Ketones (Negative) Urine Blood (Negative) Urine Nitrite (Negative) Urine Bilirubin (Negative) Urine Urobilinogen (Negative) Ur Leukocyte Esterase (Negative) 02/27/23 02/27/23 02/27/23 Range/Units 10:30 10:30 11:59 WBC (4.8-10.8) K/ul RBC (4.20-5.40) M/uL Hgb (12.0-16.0) g/dl Hct (37.0-47.0) % MCV (80.0-100.0) fL MCH (25.0-34.0) pg MCHC (32.0-36.0) g/dL RDW Std Deviation (36.4-46.3) fL RDW Coeff of Daisy (11.5-14.5) % Plt Count (130-400) K/uL MPV (9.4-12.4) fL Immature Gran % (Auto) % Neut % (Auto) % Lymph % (Auto) % [place] % (Auto) % Eos % (Auto) % Baso % (Auto) % Neut # (Auto) (1.40-6.50) K/uL Lymph # (Auto) (1.2-3.4) K/uL [place] # (Auto) (0.11-0.59) K/uL Eos # (Auto) (0-0.50) K/uL Baso # (Auto) (0-0.2) K/uL Immature Gran # (Auto) (0.01-0.20) K/uL PT (9.0-12.0) Seconds INR (0.9-1.1) APTT (21.0-31.0) Seconds PTT Ratio Sodium (136-145) mmol/L Potassium (3.5-5.1) mmol/L Chloride (98-107) mmol/L Carbon Dioxide (21-32) mmol/L Anion Gap (3-11) BUN (6-23) mg/dl Creatinine (0.6-1.2) mg/dl Est Cr Clr Drug Dosing Est GFR ( Amer) ml/min Est GFR (Non-Af Amer) ml/min BUN/Creatinine Ratio (10-20) Glucose (70-99(Fasting)) mg/dl Lactate 1.4 (0.4-2.0) mmol/L Calcium (8.6-10.3) mg/dl Magnesium (1.7-2.4) mg/dl Total Bilirubin (0.2-1.0) mg/dl Direct Bilirubin (0-0.2) mg/dl AST (13-39) U/L ALT (7-52) U/L Alkaline Phosphatase (34-104) U/L Troponin I High Sens (0-14) pg/ml Total Protein (6.0-8.3) gm/dl Albumin (3.4-5.0) gm/dl Procalcitonin 0.06 (0-0.5) ng/ml Urine Color Yellow Urine Appearance Clear (Clear) Urine pH 5.5 (4.5-7.5) Ur Specific [place] 1.009 (1.000-1.030) Urine Protein Negative (Negative) Urine Glucose (UA) Negative (Negative) Urine Ketones Negative (Negative) Urine Blood Negative (Negative) Urine Nitrite Negative (Negative) Urine Bilirubin Negative (Negative) Urine Urobilinogen Negative (Negative) Ur Leukocyte Esterase Negative (Negative) Imaging Data Attestation: I personally reviewed and interpreted this imaging study as follows: My Impression: Chest x-ray interpreted by me slightly elevated left hemidiaphragm, orthopedic hardware is present in the left shoulder no obvious infiltrate CT abdomen pelvis per my interpretation negative for bowel obstruction Radiologist's Impression: Chest X-Ray 02/27/23 10:18 SINGLE VIEW CHEST CLINICAL HISTORY: Sepsis. FINDINGS: An AP, portable, upright chest radiograph is compared to study dated 02/08/2023. The patient is status post midline sternotomy. The heart is enlarged noting atherosclerotic calcification of the thoracic aorta. The pulmonary vasculature is noncongested. There is elevation of the left hemidiaphragm with bibasilar scarring/atelectasis. Calcified pleural plaques are noted at the lung bases. No airspace consolidation or large pleural effusion is identified. No pneumothorax is seen. The skeletal structures are osteopenic. The bony thorax is grossly intact. A left shoulder arthroplasty is new from previous. Fusion hardware is noted in the lumbar spine. There is atherosclerotic calcification of the carotid bulbs. IMPRESSION: Cardiomegaly with no acute cardiopulmonary abnormality identified. ACT 112: Negative or not required by law. Electronically signed by: Avtar Costello M.D. 02/27/2023 10:57 AM Abdomen/Pelvis CT 02/27/23 10:19 CT SCAN OF THE ABDOMEN AND PELVIS WITHOUT IV CONTRAST CLINICAL HISTORY: Generalized abdominal pain. COMPARISON STUDY: No priors. TECHNIQUE: CT scan of the abdomen and pelvis is performed from the lung bases to the proximal femora. Images are reviewed in the axial, sagittal, and coronal planes. IV contrast was not administered for this examination. Note that the examination was performed in suboptimal fashion without oral and IV contrast. A dose lowering technique was utilized adhering to the principles of ALARA. CT DOSE: 906.70 mGy.cm FINDINGS: Lung bases: The patient is status post midline sternotomy. The heart is enlarged and without pericardial effusion. The coronary arteries and aortic valve leaflets are densely calcified. There is diminished attenuation of the cardiac blood pool as compared to the myocardium suggesting anemia. There is elevation of the left hemidiaphragm with bibasilar scarring/atelectasis. No airspace consolidation or pleural effusion is identified. Calcified pleural plaque is seen at the right lung base. There is advanced atherosclerotic calcification and ectasia of the descending thoracic aorta which measures up to 3.9 cm in diameter. Liver: The unenhanced liver is normal in size, contour, and attenuation. There is mild central intrahepatic biliary ductal dilatation. Gallbladder: Contracted versus surgically absent. Spleen: Normal in size and attenuation. There are scattered calcified splenic granulomas. Pancreas: Unremarkable. Adrenal glands: Unremarkable. Kidneys: The unenhanced kidneys demonstrate mild cortical atrophy and are without hydronephrosis. There are no renal calculi identified. A 3.7 cm exophytic cyst arises from the right upper pole. Abdominal vasculature: There is advanced atherosclerotic calcification and ectasia of the abdominal aorta. Left renal artery stents are suspected. Bowel: There is advanced colonic diverticulosis without clear CT evidence of acute diverticulitis. No bowel obstruction is seen. There is a long segment of mild wall thickening involving the left colon. This extends from the distal transverse colon to the sigmoid and there is surrounding inflammation. The appendix is well-visualized and normal. Peritoneum: There is no intraperitoneal free air or abdominal ascites. Lymphadenopathy: None. Pelvic viscera: The bladder and uterus are normal as visualized. A 2.2 cm simple cystic focus is noted in the left ovary on image #[id number]. Surgical clips are seen in the left groin. Skeletal structures: The skeletal structures are osteopenic. There is moderate lumbosacral spondylosis and postsurgical change noted in the lumbar spine. There is grade 1 anterolisthesis at L4-L5. No lytic or blastic lesions are seen. There is mild degenerative sclerosis of the sacroiliac joints. IMPRESSION: 1. There is a nonspecific colitis of the left colon. Correlate clinically. 2. Advanced colonic diverticulosis without CT evidence of acute diverticulitis. 3. Cardiomegaly and advanced atherosclerotic change as above. 4. Additional findings as above. ACT 112: Negative or not required by law. Electronically signed by: Avtar Costello M.D. 02/27/2023 12:16 PM ECG Data Attestation: I personally reviewed and interpreted this ECG as follows: Additional Comments: EKG interpreted by me normal sinus rhythm rate of 67 first-degree AV block, left ventricular hypertrophy, no obvious ST segment elevation or depression Telemetry was ordered by me, interpreted as normal sinus rhythm rate of 67 MDM Narrative Medical decision making differential diagnosis includes sepsis, urinary tract infection, electrolyte abnormality, diarrhea, metabolic derangement, dehydration Plan is to check labs, give IV fluids External medical records were reviewed by me Independent history was provided to me by the patient's at bedside Patient has a nonspecific colitis on CT, evidence of dehydration with an elevated white blood cell count and general malaise, patient will be given IV fluids and admitted to the [facility] Impression & Plan Acute dehydration, Colitis Discharge Plan Visit Data Chief Complaint: Illness Stated Complaint: NAUSEA, ABDOMINAL PAIN, VOMITING, RECENT SURGERY ED Provider: Singh Brand Discharge Problem: Acute dehydration, Colitis Patient Disposition: Admitted As Inpatient Forms Stand Alone Forms: My [facility] Prescriptions Prescriptions: No Action levothyroxine 75 mcg Tablet 75 mcg PO QAM albuterol sulfate 0.63 mg/3 mL Solution For Nebulization 0.63 mg INHALATION Q4H PRN (Reason: Wheezing) albuterol sulfate 90 mcg/actuation Hfa Aerosol Inhaler 2 puff INHALATION Q6H PRN (Reason: Wheezing) calcium 600 mg Capsule 600 mg PO QAM cyanocobalamin (vitamin B-12) [Vitamin B-12] 1,000 mcg Tablet Extended Release 1,000 mcg PO QAM metoprolol succinate 100 mg Tablet Extended Release 24 Hr 100 mg PO QAM amlodipine 2.5 mg Tablet 2.5 mg PO HS triamterene-hydrochlorothiazid 37.5-25 mg Capsule 1 cap PO UD Rx Instructions: mon - wed, fri isosorbide mononitrate 60 mg Tablet Extended Release 24 Hr 60 mg PO HS isosorbide mononitrate 60 mg Tablet Extended Release 24 Hr 90 mg PO QAM citalopram [Celexa] 20 mg Tablet 20 mg PO QAM potassium chloride [Klor-Con 8] 8 mEq Tablet Extended Release 8 meq PO QAM pantoprazole [Protonix] 40 mg Tablet,Delayed Release (Dr/Ec) 40 mg PO HS nitroglycerin 0.4 mg Tablet, Sublingual 0.4 mg sublingual UD PRN (Reason: Chest Pain) magnesium 250 mg Tablet 250 mg PO HS aspirin 81 mg Tablet 81 mg PO HS Hold Instructions: Resume on 03/25/23. Take the prescribed 325mg dose of aspirin for 4 weeks, then resume your normal 81mg dose lorazepam 1 mg Tablet 1 mg PO HS losartan 100 mg Tablet 100 mg PO QAM multivitamin Capsule 1 cap PO QAM dicyclomine 10 mg Capsule 10 mg PO TID PRN (Reason: Abdominal Pain) doxazosin [Cardura] 2 mg Tablet 2 mg PO HS ezetimibe [Zetia] 10 mg Tablet 10 mg PO QAM rosuvastatin [Crestor] 10 mg Tablet 20 mg PO HS aspirin 325 mg Tablet 325 mg PO DAILY Rx Instructions: until gone, then resume 81 mg dose. ibuprofen 600 mg tablet 600 mg PO Q6H acetaminophen 1 tab PO Q6H Rx Instructions: alternates with ibuprofen. didnt give dose. oxycodone See Rx Instructions .ROUTE .COMPLEX PRN (Reason: Pain) Rx Instructions: wasnt sure of dose, didn't give freq. Says it's to be used if ibuprofen and acetaminophen can't control pain Referrals Referrals: Kareem Stanley [Primary Care Provider] -
--- NOTE | 2023-02-27 10:58 | XRay Report ---
SINGLE VIEW CHEST CLINICAL HISTORY: Sepsis. FINDINGS: An AP, portable, upright chest radiograph is compared to study dated 02/08/2023. The patient is status post midline sternotomy. The heart is enlarged noting atherosclerotic calcification of the thoracic aorta. The pulmonary vasculature is noncongested. There is elevation of the left hemidiaphr agm with bibasilar scarring/atelectasis. Calcified pleural plaques are noted at the lung bases. No ai rspace consolidation or large pleural effusion is identified. No pneumothorax is seen. The skeletal s tructures are osteopenic. The bony thorax is grossly intact. A left shoulder arthroplasty is new from previous. Fusion hardware is noted in the lumbar spine. There is atherosclerotic calcification of th e carotid bulbs. IMPRESSION: Cardiomegaly with no acute cardiopulmonary abnormality identified. ACT 112: Negative or not required by law. Electronically signed by: Avtar Costello M.D. 02/27/2023 10:57 AM
[2023-02-27 11:01] LABS: Basophils # (auto) 0.04 K/uL (0-0.2); Basophils % (auto) 0.2 %; Eosinophils # (auto) 0.01 K/uL (0-0.50); Eosinophils % (auto) 0.1 %; Hematocrit (blood only) 27.3 % (37.0-47.0); Immature Granulocytes # (auto) 0.13 K/uL (0.01-0.20); Immature Granulocytes % (auto) 0.7 %; Lymphocytes # (auto) 1.07 K/uL (1.2-3.4); Lymphocytes % (auto) 5.9 %; Mean Corpuscular Volume 97.2 fL (80.0-100.0); Monocytes % (auto) 10.4 %; Neutrophils # (auto) 15.05 K/uL (1.40-6.50); Neutrophils % (auto) 82.7 %; Platelet Count 166 K/uL (130-400); RDW Coefficient of Variation 12.8 % (11.5-14.5); RDW Standard Deviation 45.8 fL (36.4-46.3); Red Blood Count 2.81 M/uL (4.20-5.40)
[2023-02-27 11:13] LABS: Albumin Level 3.4 gm/dl (3.4-5.0); Anion Gap 6 (3-11); Bilirubin Direct 0.1 mg/dl (0-0.2); Bilirubin,Total 0.5 mg/dl (0.2-1.0); Calcium 9.1 mg/dl (8.6-10.3); Carbon Dioxide 26 mmol/L (21-32); Chloride 103 mmol/L (98-107); Magnesium 1.8 mg/dl (1.7-2.4); Potassium 3.8 mmol/L (3.5-5.1); Sodium 135 mmol/L (136-145)
[2023-02-27 11:19] LABS: Alanine Aminotransferase 6 U/L (7-52); Alkaline Phosphatase 43 U/L (34-104); Aspartate Aminotransferase 21 U/L (13-39); BUN Creatinine Ratio 34.3 (10-20); Blood Urea Nitrogen 35 mg/dl (6-23); Est GFR (African American) 60.6 ml/min; Est GFR (Non-African American) 52.3 ml/min; Glucose 106 mg/dl (70-99(Fasting))
[2023-02-27 11:24] LABS: Troponin I High Sensitivity 9.4 pg/ml (0-14)
[2023-02-27 11:28] LABS: INR 1.1 (0.9-1.1); Partial Thromboplastin Ratio 0.8; Partial Thromboplastin Time 22.8 Seconds (21.0-31.0); Prothrombin Time 11.6 Seconds (9.0-12.0)
[2023-02-27 12:16] LABS: Appearance Urine Clear (Clear); Bilirubin Urine Negative (Negative); Blood Urine Negative (Negative); Color Urine Yellow; Glucose Urine UA Negative (Negative); Ketones Urine Negative (Negative); Leukocyte Esterase Urine Negative (Negative); Nitrite Urine Negative (Negative); Protein Urine Negative (Negative); Specific Gravity Urine 1.009 (1.000-1.030); Urobilinogen Urine Negative (Negative); pH Urine 5.5 (4.5-7.5)
--- NOTE | 2023-02-27 12:18 | CT Scan Report ---
CT SCAN OF THE ABDOMEN AND PELVIS WITHOUT IV CONTRAST CLINICAL HISTORY: Generalized abdominal pain. COMPARISON STUDY: No priors. TECHNIQUE: CT scan of the abdomen and pelvis is performed from the lung bases to the proximal femora. Images are reviewed in the axial, sagittal, and coronal planes. IV contrast was not administered for this examination. Note that the examination was performed in suboptimal fashion without oral and IV contrast. A dose lowering technique was utilized adhering to the principles of ALARA. CT DOSE: 906.70 mGy.cm FINDINGS: Lung bases: The patient is status post midline sternotomy. The heart is enlarged and without pericard ial effusion. The coronary arteries and aortic valve leaflets are densely calcified. There is diminis hed attenuation of the cardiac blood pool as compared to the myocardium suggesting anemia. There is e levation of the left hemidiaphragm with bibasilar scarring/atelectasis. No airspace consolidation or pleural effusion is identified. Calcified pleural plaque is seen at the right lung base. There is adv anced atherosclerotic calcification and ectasia of the descending thoracic aorta which measures up to 3.9 cm in diameter. Liver: The unenhanced liver is normal in size, contour, and attenuation. There is mild central intrah epatic biliary ductal dilatation. Gallbladder: Contracted versus surgically absent. Spleen: Normal in size and attenuation. There are scattered calcified splenic granulomas. Pancreas: Unremarkable. Adrenal glands: Unremarkable. Kidneys: The unenhanced kidneys demonstrate mild cortical atrophy and are without hydronephrosis. The re are no renal calculi identified. A 3.7 cm exophytic cyst arises from the right upper pole. Abdominal vasculature: There is advanced atherosclerotic calcification and ectasia of the abdominal a jeffrey. Left renal artery stents are suspected. Bowel: There is advanced colonic diverticulosis without clear CT evidence of acute diverticulitis. No bowel obstruction is seen. There is a long segment of mild wall thickening involving the left colon. This extends from the distal transverse colon to the sigmoid and there is surrounding inflammation. The appendix is well-visualized and normal. Peritoneum: There is no intraperitoneal free air or abdominal ascites. Lymphadenopathy: None. Pelvic viscera: The bladder and uterus are normal as visualized. A 2.2 cm simple cystic focus is note d in the left ovary on image #[id number]. Surgical clips are seen in the left groin. Skeletal structures: The skeletal structures are osteopenic. There is moderate lumbosacral spondylosi s and postsurgical change noted in the lumbar spine. There is grade 1 anterolisthesis at L4-L5. No ly tic or blastic lesions are seen. There is mild degenerative sclerosis of the sacroiliac joints. IMPRESSION: 1. There is a nonspecific colitis of the left colon. Correlate clinically. 2. Advanced colonic diverticulosis without CT evidence of acute diverticulitis. 3. Cardiomegaly and advanced atherosclerotic change as above. 4. Additional findings as above. ACT 112: Negative or not required by law. Electronically signed by: Avtar Costello M.D. 02/27/2023 12:16 PM
[2023-02-27] MEDS ORDERED: ACETAMINOPHEN 1,000 MG/100 ML VIAL IV STA (13:17)
--- NOTE | 2023-02-27 13:43 | History & Physical Report ---
Date of Service February 27, 2023 Assessment & Plan (1) Nausea & vomiting: (2) Colitis: (3) Generalized weakness: (4) Acute dehydration: (5) Status post reverse arthroplasty of left shoulder: (6) CAD (coronary artery disease): (7) Hypertension: Plan This is a 77-year-old female who has a significant past medical history of CAD with history of CABG in 1999, PVD with history of iliac artery stent in 1999 and, HTN, HLD, CKD stage III, hypothyroidism, chronic anemia, asthma, depression with anxiety who presents to ED secondary to nausea, vomiting and diarrhea x1 day. Nausea and vomiting Colitis Admit to med telemetry Clear liquid diet, advance as tolerated Patient with significant leukocytosis 18,000 We will empirically treat with IV Zosyn Obtain stool culture and C. difficile when able We will give additional 1 L of NSS maintenance fluids and reassess labs in a.m. CKD stage III Acute dehydration Chronic, renal function is stable but patient does appear dry We will give gentle IV fluid Hold Dyazide and losartan for now Generalized weakness Status post reverse arthroplasty of left shoulder POD #[address] Varma Scheduled Tylenol, as needed ibuprofen and tramadol for pain Ice 3 times daily We will consult PT OT to determine if patient qualifies for any services or possible rehab CAD with history of CABG PVD HTN HLD Chronic, stable, no chest pain or shortness of breath, EKG reviewed Preoperative nuclear stress test also reviewed Currently on a full dose aspirin for DVT prophylaxis Continue statin, Zetia, Imdur, Cardura, metoprolol and amlodipine Hold Dyazide and losartan for now in setting of dehydration Resume when able Chronic anemia Chronic and hemoglobin stable at 9.0 Hypothyroidism Chronic, stable continue levothyroxine DVT prophylaxis: ASA 325 for 28 days, then discontinue and resume baby aspirin daily; SCDs Full code PCP: Jaden Patient was seen in collaboration with Dr. Samayoa, please see addendum A total of 75 was spent coordinating, documenting, and providing care for this patient excluding time spent in the performance of separately billed services. T his included personally viewing all current laboratories and imaging studies, medication reconciliation, outpatient chart review, and discussion with specialists. History of Present Illness Chief Complaint: Nausea, vomiting and diarrhea x1 day. Primary Care Provider: Kareem Stanley This is a 77-year-old female who has a significant past medical history of CAD with history of CABG in 1999, PVD with history of iliac artery stent in 1999 and, HTN, HLD, CKD stage III, hypothyroidism, chronic anemia, asthma, depression with anxiety who presents to ED secondary to nausea, vomiting and diarrhea x1 day. Of significance patient was discharged from hospital yesterday after undergoing left total shoulder arthroplasty by Dr. Varma on 02/25/2023. She was discharged on 02/26/2023 doing well. Unfortunately when patient went home her condition started to change as she generally felt unwell, weak, nausea, had few episodes of vomiting and several episodes of crampy abdominal pain and loose diarrhea. Her last bowel movement was approximately 8 AM. She denies any hematochezia, melena or hematemesis. She denies any fever, chills, sweats, lightheadedness, dizziness, chest pain, shortness of breath, cough, URI symptoms or urinary symptoms. She received 1 L of IV fluid in ED and has had to urinate twice. Her intake was very poor over the last 24 hours since being discharged home. She denies having anything like this in the past. Allergies Allergy/AdvReac Type Severity Reaction Status Date / Time morphine AdvReac Mild IV Verified 02/25/23 09:07 morphine - vomiting oxycodone AdvReac Mild very Verified 02/25/23 09:07 nauseated, "goofy" Home Medications Medication Instructions Recorded Confirmed Type amlodipine 2.5 mg tablet 2.5 mg PO HS 01/23/21 02/27/23 History aspirin 81 mg tablet 81 mg PO HS 01/23/21 02/27/23 History calcium 600 mg capsule 600 mg PO QAM 01/23/21 02/27/23 History citalopram 20 mg tablet (Celexa) 20 mg PO QAM 01/23/21 02/27/23 History cyanocobalamin (vitamin B-12) 1,000 mcg PO QAM 01/23/21 02/27/23 History 1,000 mcg tablet,extended release (Vitamin B-12 ER) dicyclomine 10 mg capsule 10 mg PO TID PRN Abdominal Pain 01/23/21 02/27/23 History doxazosin 2 mg tablet (Cardura) 2 mg PO HS 01/23/21 02/27/23 History ezetimibe 10 mg tablet (Zetia) 10 mg PO QAM 01/23/21 02/27/23 History isosorbide mononitrate 60 mg 60 mg PO HS 01/23/21 02/27/23 History tablet,extended release 24 hr isosorbide mononitrate 60 mg 90 mg PO [facility] 01/23/21 02/27/23 History tablet,extended release 24 hr lorazepam 1 mg tablet 1 mg PO HS 01/23/21 02/27/23 History losartan 100 mg tablet 100 mg PO QA 01/23/21 02/27/23 History magnesium 250 mg tablet 250 mg PO HS 01/23/21 02/27/23 History metoprolol succinate 100 mg 100 mg PO QA 01/23/21 02/27/23 History tablet,extended release 24 hr multivitamin 1 cap PO [facility] 01/23/21 02/27/23 History nitroglycerin 0.4 mg sublingual 0.4 mg sublingual UD PRN Chest Pain 01/23/21 02/27/23 History tablet pantoprazole 40 mg tablet,delayed 40 mg PO 01/23/21 02/27/23 History release (Protonix) potassium chloride 8 mEq 8 meq PO QA 01/23/21 02/27/23 History tablet,extended release (Klor-Con) rosuvastatin 10 mg tablet (Crestor) 20 mg PO 01/23/21 02/27/23 History triamterene 37.5 1 cap PO UD 01/23/21 02/27/23 History mg-hydrochlorothiazide 25 mg capsule albuterol sulfate 0.63 mg/3 mL 0.63 mg inhalation Q4H PRN Wheezing 07/16/21 02/27/23 History solution for nebulization albuterol sulfate 90 mcg/actuation 2 puff inhalation Q6H PRN Wheezing 07/16/21 02/27/23 History aerosol inhaler levothyroxine 75 mcg tablet 75 mcg PO QA 07/16/21 02/27/23 History acetaminophen 1 tab PO Q6H 02/27/23 02/27/23 History aspirin 325 mg tablet 325 mg PO DAILY 02/27/23 02/27/23 History ibuprofen 600 mg tablet 600 mg PO Q6H 02/27/23 02/27/23 History oxycodone See Rx Instructions .Route 02/27/23 02/27/23 History .COMPLEX PRN Pain Past Med/Surg History Medical History Anemia No recent blood transfusion - no recent issues Follows with Yuri Molina Anxiety Asthma Stable CAD (coronary artery disease) CABG x3 (1999) Following with Dr. 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 s/p iliac artery stents in 1999 Sleep apnea CPAP (non-compliant) Surgical History History of bunionectomy of right great toe x2 History of cardiac cath 2020, no stents History of carpal tunnel surgery of left wrist History of coronary artery bypass graft CABG x3 (1999) History of esophagogastroduodenoscopy (EGD) History of left cataract extraction History of right cataract extraction History of total left knee replacement History of total right knee replacement Hx of cholecystectomy Hx of colonoscopy Hx of shoulder surgery right rotator cuff repair Hx of sinus surgery Hx of thumb surgery right S/P epidural steroid injection S/P lumbar fusion Status post lumbar surgery L3-4 decompression/fusion, hardware removal (10/03/21): Grade 2 view, MAC#3, ETT 7.0 at [facility]. Anesthesia postop progress note, "no major complications apparent and Pt Satisfied with anesthetic care.. 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 Required: No Beliefs That Will Affect Care: None marital status: arr Current Living Situation: Spouse current occupational status: retired How many Children do You have: 2 Feels Safe at Home: Yes Assistive Devices: Cane Review of Systems Review of Systems: All systems reviewed & are unremarkable except as noted in HPI & below Physical Exam Physical Exam: Constitutional: WD/WN, vitals as above, NAD, sitting up in bed, pleasant, conversing easily Head: Normocephalic, Atraumatic Eyes: PERRL, conjunctivae normal, anicteric sclerae ENMT: external ear and nose normal, oropharynx normal Neck: trachea midline, no thyromegaly normal visual inspection Respiratory: normal respiratory effort, lungs clear to auscultation, no wheeze, rales, rhonchi. Normal insp/exp effort, no accessory muscle use Cardiovascular: RRR, no murmur, no edema Vessels: no JVD or carotid bruit Chest: normal inspection of chest Abdomen: normal bowel sounds, soft, tender to palpation throughout, no rebound, no guarding, no rigidity, no hepatosplenomegaly Musculoskeletal: no cyanosis or clubbing, left shoulder dressing CDI, sling in place, active range of motion to right upper extremity and bilateral lower extremities Skin: no rashes, warm and dry normal turgor Neurologic: PERRL, EOMI, accommodation nl, no face palsy, no dysarthria CN's II-XI intact bilaterally and moves all extremities Psychiatric: A+Ox3, euthymic affect Lymphatic: no cervical or axillary lymphadenopathy : deferred Results & Data Results & Data Vital Signs (Past 12 Hours) Vital Signs Temp Pulse Pulse Resp BP BP Pulse Ox 02/27/23 12:17 77 02/27/23 12:02 73 20 123/62 93 02/27/23 11:14 71 18 117/52 L 92 02/27/23 10:13 36.9 C 68 18 97/56 L 96 O2 Del Method 02/27/23 12:17 02/27/23 12:02 Room Air 02/27/23 11:14 Room Air 02/27/23 10:13 Room Air Diagnostic Findings Chest X-Ray 02/27/23 10:18 SINGLE VIEW CHEST CLINICAL HISTORY: Sepsis. FINDINGS: An AP, portable, upright chest radiograph is compared to study dated 02/08/2023. The patient is status post midline sternotomy. The heart is enlarged noting atherosclerotic calcification of the thoracic aorta. The pulmonary vasculature is noncongested. There is elevation of the left hemidiaphragm with bibasilar scarring/atelectasis. Calcified pleural plaques are noted at the lung bases. No airspace consolidation or large pleural effusion is identified. No pneumothorax is seen. The skeletal structures are osteopenic. The bony thorax is grossly intact. A left shoulder arthroplasty is new from previous. Fusion hardware is noted in the lumbar spine. There is atherosclerotic calcification of the carotid bulbs. IMPRESSION: Cardiomegaly with no acute cardiopulmonary abnormality identified. ACT 112: Negative or not required by law. Electronically signed by: Avtar Costello M.D. 02/27/2023 10:57 AM Abdomen/Pelvis CT 02/27/23 10:19 CT SCAN OF THE ABDOMEN AND PELVIS WITHOUT IV CONTRAST CLINICAL HISTORY: Generalized abdominal pain. COMPARISON STUDY: No priors. TECHNIQUE: CT scan of the abdomen and pelvis is performed from the lung bases to the proximal femora. Images are reviewed in the axial, sagittal, and coronal planes. IV contrast was not administered for this examination. Note that the examination was performed in suboptimal fashion without oral and IV contrast. A dose lowering technique was utilized adhering to the principles of ALARA. CT DOSE: 906.70 mGy.cm FINDINGS: Lung bases: The patient is status post midline sternotomy. The heart is enlarged and without pericardial effusion. The coronary arteries and aortic valve leaflets are densely calcified. There is diminished attenuation of the cardiac blood pool as compared to the myocardium suggesting anemia. There is elevation of the left hemidiaphragm with bibasilar scarring/atelectasis. No airspace consolidation or pleural effusion is identified. Calcified pleural plaque is seen at the right lung base. There is advanced atherosclerotic calcification and ectasia of the descending thoracic aorta which measures up to 3.9 cm in diameter. Liver: The unenhanced liver is normal in size, contour, and attenuation. There is mild central intrahepatic biliary ductal dilatation. Gallbladder: Contracted versus surgically absent. Spleen: Normal in size and attenuation. There are scattered calcified splenic granulomas. Pancreas: Unremarkable. Adrenal glands: Unremarkable. Kidneys: The unenhanced kidneys demonstrate mild cortical atrophy and are without hydronephrosis. There are no renal calculi identified. A 3.7 cm exophytic cyst arises from the right upper pole. Abdominal vasculature: There is advanced atherosclerotic calcification and ectasia of the abdominal aorta. Left renal artery stents are suspected. Bowel: There is advanced colonic diverticulosis without clear CT evidence of acute diverticulitis. No bowel obstruction is seen. There is a long segment of mild wall thickening involving the left colon. This extends from the distal transverse colon to the sigmoid and there is surrounding inflammation. The appendix is well-visualized and normal. Peritoneum: There is no intraperitoneal free air or abdominal ascites. Lymphadenopathy: None. Pelvic viscera: The bladder and uterus are normal as visualized. A 2.2 cm simple cystic focus is noted in the left ovary on image #[id number]. Surgical clips are seen in the left groin. Skeletal structures: The skeletal structures are osteopenic. There is moderate lumbosacral spondylosis and postsurgical change noted in the lumbar spine. There is grade 1 anterolisthesis at L4-L5. No lytic or blastic lesions are seen. There is mild degenerative sclerosis of the sacroiliac joints. IMPRESSION: 1. There is a nonspecific colitis of the left colon. Correlate clinically. 2. Advanced colonic diverticulosis without CT evidence of acute diverticulitis. 3. Cardiomegaly and advanced atherosclerotic change as above. 4. Additional findings as above. ACT 112: Negative or not required by law. Electronically signed by: Avtar Costello M.D. 02/27/2023 12:16 PM Medications Administered Medication List Discontinued Medications Sodium Chloride (Nss 1000ml) 1,000 mls @ 999 mls/hr IV .Q1H1M [facility] Stop: 02/27/23 11:30 Last Infusion: 02/27/23 11:32 Dose: 0 mls/hr Documented By: Admin: 02/27/23 10:39 Dose: 999 mls/hr Documented By: LESLY ECG Rate (beats per minute): 67 Rhythm: normal sinus Additional Comments: Patient underwent nuclear stress test on 02-15-2023 which was negative for inducible ischemia COVID-19 Results Results COVID-19 Adm Lab Results: RBC 2.81 M/uL (4.20-5.40) L 02/27/23 WBC 18.20 K/ul (4.8-10.8) H 02/27/23 Hgb 9.0 g/dl (12.0-16.0) L 02/27/23 Hct 27.3 % (37.0-47.0) L 02/27/23 Plt Count 166 K/uL (130-400) 02/27/23 Neutrophils (%) (Auto) 82.7 % 02/27/23 Lymphocytes (%) (Auto) 5.9 % 02/27/23 Monocytes # (Auto) 1.90 K/uL (0.11-0.59) H 02/27/23 Eosinophils # (Auto) 0.01 K/uL (0-0.50) 02/27/23 Immature Granulocyte % (Auto) 0.7 % 02/27/23 Neutrophils # (Auto) 15.05 K/uL (1.40-6.50) H 02/27/23 Lymphocytes # (Auto) 1.07 K/uL (1.2-3.4) L 02/27/23 Monocytes # (Auto) 1.90 K/uL (0.11-0.59) H 02/27/23 Eosinophils # (Auto) 0.01 K/uL (0-0.50) 02/27/23 Basophils # (Auto) 0.04 K/uL (0-0.2) 02/27/23 Immature Granulocyte # (Auto) 0.13 K/uL (0.01-0.20) 3 Na 135 mmol/L (136-145) L 02/27/23 K 3.8 mmol/L (3.5-5.1) 02/27/23 Cl 103 mmol/L (98-107) 02/27/23 CO2 26 mmol/L (21-32) 02/27/23 Anion Gap 6 (3-11) 02/27/23 BUN 35 mg/dl (6-23) H 02/27/23 Creatinine 1.02 mg/dl (0.6-1.2) 02/27/23 BUN/Creatinine Ratio 34.3 (10-20) H 02/27/23 Glucose Level 106 mg/dl (70-99(Fasting)) H 02/27/23 Ca 9.1 mg/dl (8.6-10.3) 02/27/23 Total Bilirubin 0.5 mg/dl (0.2-1.0) 02/27/23 Direct Bilirubin 0.1 mg/dl (0-0.2) 02/27/23 AST/SGOT 21 U/L (13-39) 02/27/23 ALT/SGPT 6 U/L (7-52) L 02/27/23 Alkaline Phosphatase 43 U/L (34-104) 02/27/23 Total Protein 6.0 gm/dl (6.0-8.3) 02/27/23 Albumin 3.4 gm/dl (3.4-5.0) 02/27/23 Procalcitonin 0.06 ng/ml (0-0.5) 02/27/23 PTT 22.8 Seconds (21.0-31.0) 02/27/23 INR 1.1 (0.9-1.1) 02/27/23 Chest X-Ray 02/27/23 Code Status & VTE Plan Code Status Full code VTE Prophylaxis Plan VTE Prophylaxis will be ordered: Yes Supervising Physician Co-Signing Physician Notes Pt seen and examined by myself, Maria Teresa Samayoa MD on the day of service. Care was coordinated with Karla Degroot PA-C. Please refer to her note for additional information. 77yoF presenting as a re-admit after being discharged yesterday after an orthopedic stay after shoulder arthroplasty. Developed N/V/D diarrhea at home, elevated WBC in the ED today with CT showing a colitis. Denies cough, SOB, chest pain, open skin lesions, dysuria. Abdomen, soft and nontender, no increased effort of breathing, breath sounds clear. Stool cultures and c diff pending. Empiric Zosyn with fluids, advance diet as tolerated. Otherwise as above.
[2023-02-27] MEDS ORDERED: ALUMINUM/MAGNESIUM SUSP 30 ML UDC PO PRN (15:24)
[2023-02-27] MEDS ORDERED: DICYCLOMINE HCL 10 MG CAP PO PRN (15:24)
[2023-02-27] MEDS ORDERED: traMADol HCL 50 MG TABLET PO PRN (15:24)
[2023-02-27] MEDS ORDERED: ONDANSETRON INJ 2 MG/ML 2 ML VIAL IV PRN (15:24)
[2023-02-27] MEDS ORDERED: IBUPROFEN 600 MG TAB PO PRN (15:24)
[2023-02-27] MEDS ORDERED: ALBUTEROL HFA 8 GM INHALER INH PRN (15:24)
[2023-02-27] MEDS ORDERED: PIPERACILLIN/TAZOBACTAM 4.5 GM in DEXTROSE 5% 100 ML IV STA (15:40)
[2023-02-27] MEDS: ACETAMINOPHEN 325 MG TAB PO SCH ×2 (16:11→20:32)
[2023-02-27] MEDS: LORazepam 1 MG TAB PO SCH (20:31)
[2023-02-27] MEDS: ROSUVASTATIN CALCIUM 20 MG TAB PO SCH (20:31)
[2023-02-27] MEDS: PANTOprazole 40 MG TAB PO SCH (20:31)
[2023-02-27] MEDS: ISOSORBIDE MONO EXTENDED REL 60 MG TABCR PO SCH (20:32)
[2023-02-27] MEDS: amLODIPine BESYLATE 5 MG TAB PO SCH (20:32)
[2023-02-27] MEDS: DOXAZosin MESYLATE TAB 2 MG TAB PO SCH (20:33)
[2023-02-27] MEDS: PIPERACILLIN/TAZOBACTAM 4.5 GM in DEXTROSE 5% 100 ML IV SCH (22:20)
[2023-02-28] MEDS: LEVOTHYROXINE SODIUM 75 MCG TABLET PO SCH (05:36)
[2023-02-28] MEDS: PIPERACILLIN/TAZOBACTAM 4.5 GM in DEXTROSE 5% 100 ML IV SCH ×3 (05:38→20:46)
[2023-02-28 06:36] LABS: Basophils # (auto) 0.05 K/uL (0-0.2); Basophils % (auto) 0.3 %; Eosinophils # (auto) 0.05 K/uL (0-0.50); Eosinophils % (auto) 0.3 %; Hematocrit (blood only) 24.9 % (37.0-47.0); Hemoglobin 8.2 g/dl (12.0-16.0); Immature Granulocytes # (auto) 0.07 K/uL (0.01-0.20); Immature Granulocytes % (auto) 0.5 %; Lymphocytes # (auto) 1.37 K/uL (1.2-3.4); Lymphocytes % (auto) 9.3 %; Mean Corpuscular Hemoglobin 32.2 pg (25.0-34.0); Mean Corpuscular Hgb Conc 32.9 g/dL (32.0-36.0); Mean Corpuscular Volume 97.6 fL (80.0-100.0); Mean Platelet Volume 12.1 fL (9.4-12.4); Monocytes # (auto) 1.52 K/uL (0.11-0.59); Monocytes % (auto) 10.3 %; Neutrophils # (auto) 11.74 K/uL (1.40-6.50); Neutrophils % (auto) 79.3 %; Platelet Count 154 K/uL (130-400); RDW Coefficient of Variation 13.1 % (11.5-14.5); RDW Standard Deviation 46.8 fL (36.4-46.3); Red Blood Count 2.55 M/uL (4.20-5.40)
[2023-02-28 06:51] LABS: Albumin Globulin Ratio 1.4 (0.9-2); BUN Creatinine Ratio 26.7 (10-20); Bilirubin,Total 0.9 mg/dl (0.2-1.0); Calcium 8.3 mg/dl (8.6-10.3); Creatinine Clr Calc Pharmacy 46.3 ml/min; Est GFR (African American) 87.9 ml/min; Est GFR (Non-African American) 75.8 ml/min; Globulin 2.2 gm/dl (2.5-4.0); Magnesium 1.6 mg/dl (1.7-2.4); Potassium 3.3 mmol/L (3.5-5.1); Total Protein 5.2 gm/dl (6.0-8.3)
--- NOTE | 2023-02-28 07:12 | Electrocardiogram Report ---
Test Reason : Blood Pressure : / mmHG Vent. Rate : 067 BPM Atrial Rate : 067 BPM P-R Int : 206 ms QRS Dur : 090 ms QT Int : 368 ms P-R-T Axes : 084 -13 114 degrees QTc Int : 388 ms Normal sinus rhythm Minimal voltage criteria for LVH, may be normal variant Nonspecific ST abnormality possible Inferior infarct , age undetermined Abnormal ECG When compared with ECG of 08-FEB-2023 10:39, Nonspecific T wave abnormality now evident in Inferior leads Nonspecific T wave abnormality, worse in Anterolateral leads QT has shortened Confirmed by Monico Bishop ([id number]) on 02/28/2023 7:12:14 AM Referred By: REFERRED SELF Confirmed By:Lazaro Bishop
[2023-02-28] MEDS ORDERED: POTASSIUM CHLORIDE CRTAB 20 MEQ TABCR PO STA (07:46)
[2023-02-28] MEDS: ACETAMINOPHEN 325 MG TAB PO SCH ×4 (08:36→20:42)
[2023-02-28] MEDS: CALCIUM CARBONATE 1250MG TAB PO SCH (08:36)
[2023-02-28] MEDS: ISOSORBIDE MONO EXTENDED REL 30 MG TABCR PO SCH (08:36)
[2023-02-28] MEDS: CYANOCOBALAMIN (B-12) 500 MCG TABLET PO SCH (08:36)
[2023-02-28] MEDS: CITALOPRAM 20 MG TAB PO SCH (08:36)
[2023-02-28] MEDS: MULTIVITAMIN TAB PO SCH (08:36)
[2023-02-28] MEDS: ASPIRIN 325 MG ECTAB PO SCH (08:36)
[2023-02-28] MEDS: METOPROLOL SUCC 50MG EXT REL TAB PO SCH (08:36)
[2023-02-28] MEDS: POTASSIUM CHLORIDE 10 MEQ TABCR PO SCH (08:37)
[2023-02-28] MEDS: EZETIMIBE 10 MG TABLET PO SCH (08:37)
--- NOTE | 2023-02-28 12:35 | Hospitalist Progress Note ---
Date of Service February 28, 2023 Assessment & Plan (1) Nausea & vomiting: (2) Colitis: (3) Generalized weakness: (4) Acute dehydration: (5) Status post reverse arthroplasty of left shoulder: (6) CAD (coronary artery disease): (7) Hypertension: Plan This is a 77-year-old female who has a significant past medical history of CAD with history of CABG in 1999, PVD with history of iliac artery stent in 1999 and, HTN, HLD, CKD stage III, hypothyroidism, chronic anemia, asthma, depression with anxiety who presents to ED secondary to nausea, vomiting and diarrhea x1 day. Nausea and vomiting Colitis Admitted to [facility] telemetry Was on clear liquid and has been tolerating full liquid diet and will advance as tolerated Patient with significant leukocytosis 18,000 Leukocytosis has been improving which is 14,000 as of 02/28/2023 We will empirically treat with IV Zosyn-we will continue intravenous Zosyn for now Obtain stool culture and C. difficile when able-pending We will give additional 1 L of NSS maintenance fluids and reassess labs in a.m. Remains stable and has been feeling better We will continue current management and advance diet as tolerated Advised to ambulate with the help of nurse Likely discharge tomorrow on oral antibiotic CKD stage III Acute dehydration Chronic, renal function is stable but patient does appear dry We will give gentle IV fluid Hold Dyazide and losartan for now Kidney function has been normal with hypokalemia Potassium will be replaced Blood pressure remains on the lower side and will continue to hold Dyazide and losartan and most likely Dyazide will be discontinued on discharge Generalized weakness Status post reverse arthroplasty of left shoulder POD #[address] Varma Scheduled Tylenol, as needed ibuprofen and tramadol for pain Ice 3 times daily We will consult PT OT to determine if patient qualifies for any services or possible rehab Wants to go home today-we will get PT and OT evaluation prior to discharge CAD with history of CABG PVD HTN HLD Chronic, stable, no chest pain or shortness of breath, EKG reviewed Preoperative nuclear stress test also reviewed Currently on a full dose aspirin for DVT prophylaxis Continue statin, Zetia, Imdur, Cardura, metoprolol and amlodipine Hold Dyazide and losartan for now in setting of dehydration Resume when able Chronic anemia Chronic and hemoglobin stable at 9.0 Hypothyroidism Chronic, stable continue levothyroxine DVT prophylaxis: ASA 325 for 28 days, then discontinue and resume baby aspirin daily; SCDs Full code PCP: Jaden Admission and Anticipated Discharge Date Admission Date: February 27, 2023 Subjective 02/28/2023 The patient was seen and examined in medical telemetry unit She has been feeling much better and the nausea is almost gone and there is no more vomiting She has not had any more diarrhea She has been ambulating in the room without any difficulties No abdominal pain Review of Systems Review of Systems: All systems reviewed and are unremarkable except as noted below Gastrointestinal: No abdominal distention, discomfort, nausea and or vomiting Physical Exam Physical Exam: Sitting at the edge of the bed without any acute distress Constitutional: well developed, well nourished, + ill appearing and + obese Eyes: PERRL, conjunctivae normal, anicteric sclerae ENMT: external ear and nose normal, oropharynx normal Neck: trachea midline, no thyromegaly Respiratory: no respiratory distress Auscultation: lungs clear to auscultation bilaterally Cardiovascular: Rate/Rhythm: regular rate and regular rhythm; not tachycardic Heart Sounds: normal S1 and normal S2; no murmur Extremities: no edema Gastrointestinal (Abdomen): Inspection/Auscultation: normal bowel sounds; abdomen not distended Percussion/Palpation: abdomen soft; abdomen nontender Musculoskeletal: No acute arthritis involving any of the joint. Has a sling on the left upper extremity Neurologic: normal touch/pain/proprioception and moves all extremities; no focal motor deficits Psychiatric: A+Ox3, euthymic affect Lymphatic: no cervical or axillary lymphadenopathy Results & Data Results & Data Vital Signs (Past 12 Hours) Vital Signs Temp Pulse Pulse Resp BP Pulse Ox O2 Del Method 02/28/23 11:41 36.8 C 67 18 106/62 95 Room Air 02/28/23 08:30 Room Air 02/28/23 08:05 37.5 C 86 18 117/65 93 Room Air 02/28/23 07:15 86 02/28/23 04:19 36.9 C 75 18 125/74 94 Room Air Laboratory Results Short CBC 02/28/23 Range/Units 06:05 WBC 14.80 H (4.8-10.8) K/ul Hgb 8.2 L (12.0-16.0) g/dl Hct 24.9 L (37.0-47.0) % Plt Count 154 (130-400) K/uL BMP 02/28/23 06:05 Sodium 138 Potassium 3.3 L Chloride 106 Carbon Dioxide 28 BUN 20 Creatinine 0.75 Glucose 95 Calcium 8.3 L Liver Function 02/28/23 Range/Units 06:05 Total Bilirubin 0.9 (0.2-1.0) mg/dl AST 19 (13-39) U/L ALT 8 (7-52) U/L Alkaline Phosphatase 38 (34-104) U/L Albumin 3.0 L (3.4-5.0) gm/dl Medications Administered Current Inpatient Medications Acetaminophen (Acetaminophen 325 Mg Tab) 650 mg PO QID [facility] Stop: 03/29/23 16:59 Last Admin: 02/28/23 08:36 Dose: 650 mg Al Hydrox/Mg Hydrox/Simethicone (Aluminum/Magnesium Susp 30 Ml Udc) 15 ml PO Q4H PRN PRN Reason: Dyspepsia Stop: 03/29/23 15:23 Albuterol (Albuterol Hfa 8 Gm Inhaler) 2 puffs INH Q6H PRN PRN Reason: Wheezing Stop: 03/29/23 15:23 Amlodipine Besylate (Amlodipine Besylate 5 Mg Tab) 2.5 mg PO HS [facility] Stop: 03/29/23 20:59 Last Admin: 02/27/23 20:32 Dose: 2.5 mg Aspirin (Aspirin 325 Mg Ectab) 325 mg PO DAILY [facility] Stop: 03/30/23 08:59 Last Admin: 02/28/23 08:36 Dose: 325 mg Calcium Carbonate (Calcium Carbonate 1250mg Tab) 1,250 mg PO [facility] Stop: 03/30/23 08:59 Last Admin: 02/28/23 08:36 Dose: 1,250 mg Citalopram Hydrobromide (Citalopram 20 Mg Tab) [facility] Stop: 03/30/23 08:59 Last Admin: 02/28/23 08:36 Dose: 20 mg Cyanocobalamin (Cyanocobalamin (B-12) 500 Mcg Tablet) 1,000 mcg [facility] Stop: 03/30/23 08:59 Last Admin: 02/28/23 08:36 Dose: 1,000 mcg Dicyclomine HCl (Dicyclomine Hcl 10 Mg Cap) 10 mg PO TID PRN PRN Reason: Abdominal Pain Stop: 03/29/23 15:23 Doxazosin Mesylate (Doxazosin Mesylate Tab 2 Mg Tab) 2 mg PO [facility] Stop: 03/29/23 20:59 Last Admin: 02/27/23 20:33 Dose: 2 mg Ezetimibe (Ezetimibe 10 Mg Tablet) 10 mg PO [facility] Stop: 03/30/23 08:59 Last Admin: 02/28/23 08:37 Dose: 10 mg Piperacillin Sod/Tazobactam (Sod 4.5 gm/ Dextrose) 120 mls @ 30 mls/hr IV Q8H [facility]; Protocol Stop: 03/09/23 21:59 Last Infusion: 02/28/23 09:41 Dose: Infused Ibuprofen (Ibuprofen 600 Mg Tab) 600 mg PO Q6H PRN PRN Reason: mild pain 1-6 Stop: 03/29/23 15:23 Isosorbide Mononitrate (Isosorbide [place] Extended Rel 60 Mg Tabcr) 60 mg PO [facility] Stop: 03/29/23 20:59 Last Admin: 02/27/23 20:32 Dose: 60 mg Isosorbide Mononitrate (Isosorbide [place] Extended Rel 30 Mg Tabcr) 90 mg PO [facility] Stop: 03/30/23 08:59 Last Admin: 02/28/23 08:36 Dose: 90 mg Levothyroxine Sodium (Levothyroxine Sodium 75 Mcg Tablet) [facility] Stop: 03/30/23 06:29 Last Admin: 02/28/23 05:36 Dose: 75 mcg Lorazepam (Lorazepam 1 Mg Tab) 1 mg PO [facility] Stop: 03/29/23 20:59 Last Admin: 02/27/23 20:31 Dose: 1 mg Metoprolol Succinate (Metoprolol Succ 50mg Ext Rel Tab) 100 mg PO [facility] Stop: 03/30/23 08:59 Last Admin: 02/28/23 08:36 Dose: 100 mg Multivitamins (Multivitamin Tab) 1 tab PO [facility] Stop: 03/30/23 08:59 Last Admin: 02/28/23 08:36 Dose: 1 tab Ondansetron HCl (Ondansetron Inj 2 Mg/Ml 2 Ml Vial) 4 mg IV Q6H PRN PRN Reason: Nausea Stop: 03/29/23 15:23 Pantoprazole Sodium (Pantoprazole 40 Mg Tab) 40 mg PO HS [facility] Stop: 03/29/23 20:59 Last Admin: 02/27/23 20:31 Dose: 40 mg Potassium Chloride (Potassium Chloride 10 Meq Tabcr) 10 meq [facility] Stop: 03/30/23 08:59 Last Admin: 02/28/23 08:37 Dose: 10 meq Rosuvastatin Calcium (Rosuvastatin Calcium 20 Mg Tab) 20 mg PO HS [facility] Stop: 03/29/23 20:59 Last Admin: 02/27/23 20:31 Dose: 20 mg Tramadol HCl (Tramadol Hcl 50 Mg Tablet) 50 mg PO Q4H PRN PRN Reason: severe pain 7-10 Stop: 03/29/23 15:23
[2023-02-28] MEDS: amLODIPine BESYLATE 5 MG TAB PO SCH (20:41)
[2023-02-28] MEDS: ISOSORBIDE MONO EXTENDED REL 60 MG TABCR PO SCH (20:41)
[2023-02-28] MEDS: DOXAZosin MESYLATE TAB 2 MG TAB PO SCH (20:41)
[2023-02-28] MEDS: PANTOprazole 40 MG TAB PO SCH (20:41)
[2023-02-28] MEDS: ROSUVASTATIN CALCIUM 20 MG TAB PO SCH (20:41)
[2023-02-28] MEDS: LORazepam 1 MG TAB PO SCH (20:42)
[2023-03-01] MEDS: LEVOTHYROXINE SODIUM 75 MCG TABLET PO SCH (05:37)
[2023-03-01] MEDS: PIPERACILLIN/TAZOBACTAM 4.5 GM in DEXTROSE 5% 100 ML IV SCH (05:41)
[2023-03-01 07:03] LABS: Basophils # (auto) 0.04 K/uL (0-0.2); Basophils % (auto) 0.4 %; Eosinophils # (auto) 0.28 K/uL (0-0.50); Eosinophils % (auto) 2.6 %; Hematocrit (blood only) 23.8 % (37.0-47.0); Hemoglobin 7.8 g/dl (12.0-16.0); Immature Granulocytes # (auto) 0.06 K/uL (0.01-0.20); Immature Granulocytes % (auto) 0.6 %; Lymphocytes # (auto) 1.45 K/uL (1.2-3.4); Lymphocytes % (auto) 13.6 %; Mean Corpuscular Hemoglobin 31.7 pg (25.0-34.0); Mean Corpuscular Hgb Conc 32.8 g/dL (32.0-36.0); Mean Corpuscular Volume 96.7 fL (80.0-100.0); Mean Platelet Volume 12.3 fL (9.4-12.4); Monocytes # (auto) 1.05 K/uL (0.11-0.59); Monocytes % (auto) 9.8 %; Neutrophils # (auto) 7.82 K/uL (1.40-6.50); Platelet Count 166 K/uL (130-400); RDW Standard Deviation 45.8 fL (36.4-46.3); Red Blood Count 2.46 M/uL (4.20-5.40)
[2023-03-01 07:26] LABS: Albumin Globulin Ratio 1.2 (0.9-2); Albumin Level 2.7 gm/dl (3.4-5.0); Calcium 8.1 mg/dl (8.6-10.3); Creatinine Clr Calc Pharmacy 41.7 ml/min; Est GFR (African American) 76.6 ml/min; Est GFR (Non-African American) 66.1 ml/min; Globulin 2.3 gm/dl (2.5-4.0); Magnesium 1.6 mg/dl (1.7-2.4); Potassium 3.8 mmol/L (3.5-5.1)
[2023-03-01 07:41] LABS: Ovalocytes 1+
[2023-03-01] MEDS: ACETAMINOPHEN 325 MG TAB PO SCH ×2 (08:01→12:45)
[2023-03-01] MEDS: ISOSORBIDE MONO EXTENDED REL 30 MG TABCR PO SCH (08:02)
[2023-03-01] MEDS: CITALOPRAM 20 MG TAB PO SCH (08:02)
[2023-03-01] MEDS: ASPIRIN 325 MG ECTAB PO SCH (08:02)
[2023-03-01] MEDS: METOPROLOL SUCC 50MG EXT REL TAB PO SCH (08:02)
[2023-03-01] MEDS: POTASSIUM CHLORIDE 10 MEQ TABCR PO SCH (08:02)
[2023-03-01] MEDS: MULTIVITAMIN TAB PO SCH (08:02)
[2023-03-01] MEDS: EZETIMIBE 10 MG TABLET PO SCH (08:02)
[2023-03-01] MEDS: CALCIUM CARBONATE 1250MG TAB PO SCH (08:02)
[2023-03-01] MEDS: CYANOCOBALAMIN (B-12) 500 MCG TABLET PO SCH (08:02)
--- NOTE | 2023-03-01 11:50 | Hospitalist Progress Note ---
Date of Service March 01, 2023 Assessment & Plan (1) Nausea & vomiting: (2) Colitis: (3) Generalized weakness: (4) Acute dehydration: (5) Status post reverse arthroplasty of left shoulder: (6) CAD (coronary artery disease): (7) Hypertension: Plan This is a 77-year-old female who has a significant past medical history of CAD with history of CABG in 1999, PVD with history of iliac artery stent in 1999 and, HTN, HLD, CKD stage III, hypothyroidism, chronic anemia, asthma, depression with anxiety who presents to ED secondary to nausea, vomiting and diarrhea x1 day. Nausea and vomiting Colitis Admitted to [facility] telemetry Was on clear liquid and has been tolerating full liquid diet and will advance as tolerated Patient with significant leukocytosis 18,000 Leukocytosis has been improving which is 14,000 as of 02/28/2023 We will empirically treat with IV Zosyn-we will continue intravenous Zosyn for now Obtain stool culture and C. difficile when able-pending We will give additional 1 L of NSS maintenance fluids and reassess labs in a.m. Remains stable and has been feeling better We will continue current management and advance diet as tolerated Advised to ambulate with the help of nurse Likely discharge tomorrow on oral antibiotic Clinically much better without any acute symptoms Will be discharged home this afternoon on oral antibiotic to finish the complete course CKD stage III Acute dehydration Chronic, renal function is stable but patient does appear dry We will give gentle IV fluid Hold Dyazide and losartan for now Kidney function has been normal with hypokalemia Potassium will be replaced Blood pressure remains on the lower side and will continue to hold Dyazide and losartan and most likely Dyazide will be discontinued on discharge Continue with losartan on discharge and Dyazide should be discontinued Generalized weakness Status post reverse arthroplasty of left shoulder POD #[address] Varma Scheduled Tylenol, as needed ibuprofen and tramadol for pain Ice 3 times daily We will consult PT OT to determine if patient qualifies for any services or possible rehab Wants to go home today-we will get PT and OT evaluation prior to discharge Will have outpatient physical therapy as she was getting before CAD with history of CABG PVD HTN HLD Chronic, stable, no chest pain or shortness of breath, EKG reviewed Preoperative nuclear stress test also reviewed Currently on a full dose aspirin for DVT prophylaxis Continue statin, Zetia, Imdur, Cardura, metoprolol and amlodipine Hold Dyazide and losartan for now in setting of dehydration Resume when able Chronic anemia Chronic and hemoglobin stable at 9.0 Hypothyroidism Chronic, stable continue levothyroxine DVT prophylaxis: ASA 325 for 28 days, then discontinue and resume baby aspirin daily; SCDs Full code PCP: Jaden Admission and Anticipated Discharge Date Admission Date: February 27, 2023 Subjective 02/28/2023 The patient was seen and examined in medical telemetry unit She has been feeling much better and the nausea is almost gone and there is no more vomiting She has not had any more diarrhea She has been ambulating in the room without any difficulties No abdominal pain 03/01/2023 The patient was seen and examined in medical telemetry unit She has been feeling much better and has been tolerating regular diet Denies any abdominal pain, nausea or vomiting She has had PT evaluation and advised to go home She will have physical therapy for left shoulder surgery recently Review of Systems Review of Systems: All systems reviewed and are unremarkable except as noted below Gastrointestinal: No abdominal distention, discomfort, nausea and or vomiting Physical Exam Physical Exam: Sitting at the edge of the bed without any acute distress Constitutional: well developed, well nourished, + ill appearing and + obese Eyes: PERRL, conjunctivae normal, anicteric sclerae ENMT: external ear and nose normal, oropharynx normal Neck: trachea midline, no thyromegaly Respiratory: no respiratory distress Auscultation: lungs clear to auscultation bilaterally Cardiovascular: Rate/Rhythm: regular rate and regular rhythm; not tachycardic Heart Sounds: normal S1 and normal S2; no murmur Extremities: no edema Gastrointestinal (Abdomen): Inspection/Auscultation: normal bowel sounds; abdomen not distended Percussion/Palpation: abdomen soft; abdomen nontender Neurologic: normal touch/pain/proprioception and moves all extremities; no focal motor deficits Psychiatric: A+Ox3, euthymic affect Lymphatic: no cervical or axillary lymphadenopathy Results & Data Results & Data Vital Signs (Past 12 Hours) Vital Signs Temp Pulse Pulse Pulse Resp BP Pulse Ox 03/01/23 11:11 63 94 03/01/23 11:06 36.9 C 52 L 18 101/61 92 03/01/23 07:37 36.8 C 70 18 131/71 94 03/01/23 07:02 70 03/01/23 04:00 36.7 C 81 18 119/76 95 03/01/23 01:06 03/01/23 00:00 36.8 C 67 18 114/73 93 O2 Del Method 03/01/23 11:11 Room Air 03/01/23 11:06 Room Air 03/01/23 07:37 Room Air 03/01/23 07:02 03/01/23 04:00 Room Air 03/01/23 01:06 Room Air 03/01/23 00:00 Room Air Laboratory Results Short CBC 03/01/23 Range/Units 05:53 WBC 10.70 (4.8-10.8) K/ul Hgb 7.8 L (12.0-16.0) g/dl Hct 23.8 L (37.0-47.0) % Plt Count 166 (130-400) K/uL BMP 03/01/23 05:53 Sodium 136 Potassium 3.8 Chloride 106 Carbon Dioxide 28 BUN 21 Creatinine 0.84 Glucose 87 Calcium 8.1 L Liver Function 03/01/23 Range/Units 05:53 Total Bilirubin 1.0 (0.2-1.0) mg/dl AST 20 (13-39) U/L ALT 9 (7-52) U/L Alkaline Phosphatase 38 (34-104) U/L Albumin 2.7 L (3.4-5.0) gm/dl Medications Administered Current Inpatient Medications Acetaminophen (Acetaminophen 325 Mg Tab) 650 mg PO QID [facility] Stop: 03/29/23 16:59 Last Admin: 03/01/23 08:01 Dose: 650 mg Al Hydrox/Mg Hydrox/Simethicone (Aluminum/Magnesium Susp 30 Ml Udc) 15 ml PO Q4H PRN PRN Reason: Dyspepsia Stop: 03/29/23 15:23 Albuterol (Albuterol Hfa 8 Gm Inhaler) 2 puffs INH Q6H PRN PRN Reason: Wheezing Stop: 03/29/23 15:23 Amlodipine Besylate (Amlodipine Besylate 5 Mg Tab) 2.5 mg PO HS [facility] Stop: 03/29/23 20:59 Last Admin: 02/28/23 20:41 Dose: 2.5 mg Aspirin (Aspirin 325 Mg Ectab) 325 mg PO DAILY [facility] Stop: 03/30/23 08:59 Last Admin: 03/01/23 08:02 Dose: 325 mg Calcium Carbonate (Calcium Carbonate 1250mg Tab) 1,250 mg PO [facility] Stop: 03/30/23 08:59 Last Admin: 03/01/23 08:02 Dose: 1,250 mg Citalopram Hydrobromide (Citalopram 20 Mg Tab) [facility] [place] Stop: 03/30/23 08:59 Last Admin: 03/01/23 08:02 Dose: 20 mg Cyanocobalamin (Cyanocobalamin (B-12) 500 Mcg Tablet) 1,000 mcg [facility] [place] Stop: 03/30/23 08:59 Last Admin: 03/01/23 08:02 Dose: 1,000 mcg Dicyclomine HCl (Dicyclomine Hcl 10 Mg Cap) 10 mg PO TID PRN PRN Reason: Abdominal Pain Stop: 03/29/23 15:23 Doxazosin Mesylate (Doxazosin Mesylate Tab 2 Mg Tab) 2 [address] [facility] Stop: 03/29/23 20:59 Last Admin: 02/28/23 20:41 Dose: 2 mg Ezetimibe (Ezetimibe 10 Mg Tablet) 10 mg PO [facility] Stop: 03/30/23 08:59 Last Admin: 03/01/23 08:02 Dose: 10 mg Piperacillin Sod/Tazobactam (Sod 4.5 gm/ Dextrose) 120 mls @ 30 mls/hr IV Q8H [facility]; Protocol Stop: 03/09/23 21:59 Last Infusion: 03/01/23 09:44 Dose: Infused Ibuprofen (Ibuprofen 600 Mg Tab) 600 mg PO Q6H PRN PRN Reason: mild pain 1-6 Stop: 03/29/23 15:23 Isosorbide Mononitrate (Isosorbide [place] Extended Rel 60 Mg Tabcr) 60 [address] [facility] Stop: 03/29/23 20:59 Last Admin: 02/28/23 20:41 Dose: 60 mg Isosorbide Mononitrate (Isosorbide [place] Extended Rel 30 Mg Tabcr) 90 [facility] [place] Stop: 03/30/23 08:59 Last Admin: 03/01/23 08:02 Dose: 90 mg Levothyroxine Sodium (Levothyroxine Sodium 75 Mcg Tablet) [facility] Stop: 03/30/23 06:29 Last Admin: 03/01/23 05:37 Dose: 75 mcg Lorazepam (Lorazepam 1 Mg Tab) 1 mg PO [facility] Stop: 03/29/23 20:59 Last Admin: 02/28/23 20:42 Dose: 1 mg Metoprolol Succinate (Metoprolol Succ 50mg Ext Rel Tab) 100 mg [facility] [place] Stop: 03/30/23 08:59 Last Admin: 03/01/23 08:02 Dose: 100 mg Multivitamins (Multivitamin Tab) 1 tab PO [facility] Stop: 03/30/23 08:59 Last Admin: 03/01/23 08:02 Dose: 1 tab Ondansetron HCl (Ondansetron Inj 2 Mg/Ml 2 Ml Vial) 4 mg IV Q6H PRN PRN Reason: Nausea Stop: 03/29/23 15:23 Pantoprazole Sodium (Pantoprazole 40 Mg Tab) 40 mg [address] [facility] Stop: 03/29/23 20:59 Last Admin: 02/28/23 20:41 Dose: 40 mg Potassium Chloride (Potassium Chloride 10 Meq Tabcr) 10 meq PO [facility] Stop: 03/30/23 08:59 Last Admin: 03/01/23 08:02 Dose: 10 meq Rosuvastatin Calcium (Rosuvastatin Calcium 20 Mg Tab) 20 mg [address] [facility] Stop: 03/29/23 20:59 Last Admin: 02/28/23 20:41 Dose: 20 mg Tramadol HCl (Tramadol Hcl 50 Mg Tablet) 50 mg PO Q4H PRN PRN Reason: severe pain 7-10 Stop: 03/29/23 15:23 Last Admin: 02/28/23 21:46 Dose: 50 mg
[2023-03-01] MEDS ORDERED: AMOXICILLIN/CLAVULANATE 875 MG TAB PO ONE (12:00)
--- NOTE | 2023-03-02 17:07 | Discharge Summary ---
Date of Service March 01, 2023 Admission HPI Per Admitting Provider This is a 77-year-old female who has a significant past medical history of CAD with history of CABG in 2000, PVD with history of iliac artery stent in 1999 and, HTN, HLD, CKD stage III, hypothyroidism, chronic anemia, asthma, depression with anxiety who presents to ED secondary to nausea, vomiting and diarrhea x1 day. Of significance patient was discharged from hospital yesterday after undergoing left total shoulder arthroplasty by Dr. Varma on 02/25/2023. She was discharged on 02/26/2023 doing well. Unfortunately when patient went home her condition started to change as she generally felt unwell, weak, nausea, had few episodes of vomiting and several episodes of crampy abdominal pain and loose diarrhea. Her last bowel movement was approximately 8 AM. She denies any hematochezia, melena or hematemesis. She denies any fever, chills, sweats, lightheadedness, dizziness, chest pain, shortness of breath, cough, URI symptoms or urinary symptoms. She received 1 L of IV fluid in ED and has had to urinate twice. Her intake was very poor over the last 24 hours since being discharged home. She denies having anything like this in the past. Admission Exam Per Admitting Provider Physical Exam: Constitutional: WD/WN, vitals as above, NAD, sitting up in bed, pleasant, conversing easily Head: Normocephalic, Atraumatic Eyes: PERRL, conjunctivae normal, anicteric sclerae ENMT: external ear and nose normal, oropharynx normal Neck: trachea midline, no thyromegaly normal visual inspection Respiratory: normal respiratory effort, lungs clear to auscultation, no wheeze, rales, rhonchi. Normal insp/exp effort, no accessory muscle use Cardiovascular: RRR, no murmur, no edema Vessels: no JVD or carotid bruit Chest: normal inspection of chest Abdomen: normal bowel sounds, soft, tender to palpation throughout, no rebound, no guarding, no rigidity, no hepatosplenomegaly Musculoskeletal: no cyanosis or clubbing, left shoulder dressing CDI, sling in place, active range of motion to right upper extremity and bilateral lower extremities Skin: no rashes, warm and dry normal turgor Neurologic: PERRL, EOMI, accommodation nl, no face palsy, no dysarthria CN's II-XI intact bilaterally and moves all extremities Psychiatric: A+Ox3, euthymic affect Lymphatic: no cervical or axillary lymphadenopathy : deferred Principal Diagnosis Nonspecific colitis involving left colon, nausea and vomiting, CONCEPCIÓN on CKD stage III, hypertension, CAD with history of CABG, recent left shoulder surgery Discharge Exam Sitting at the edge of the bed without any acute distress Constitutional well developed, well nourished, + ill appearing and + obese Eyes PERRL, conjunctivae normal, anicteric sclerae ENMT external ear and nose normal, oropharynx normal Neck trachea midline, no thyromegaly Respiratory no respiratory distress Auscultation: lungs clear to auscultation bilaterally Cardiovascular Rate/Rhythm: regular rate and regular rhythm; not tachycardic Heart Sounds: normal S1 and normal S2; no murmur Extremities: no edema Gastrointestinal (Abdomen) Inspection/Auscultation: normal bowel sounds; abdomen not distended Percussion/Palpation: abdomen soft; abdomen nontender Neurologic normal touch/pain/proprioception and moves all extremities; no focal motor deficits Psychiatric A+Ox3, euthymic affect Lymphatic no cervical or axillary lymphadenopathy Discharge Data Allergies Allergy/AdvReac Type Severity Reaction Status Date / Time morphine AdvReac Mild IV Verified 02/25/23 09:07 morphine - vomiting oxycodone AdvReac Mild very Verified 02/25/23 09:07 nauseated, "goofy" Consultations 02/27/23 12:41 ED Decision to Admit Stat Ordered Studies 02/27/23 10:19 CT abd pelvis wo con Stat Hospital Course (1) Nausea & vomiting: (2) Colitis: (3) Generalized weakness: (4) Acute dehydration: (5) Status post reverse arthroplasty of left shoulder: (6) CAD (coronary artery disease): (7) Hypertension: Plan This is a 77-year-old female who has a significant past medical history of CAD with history of CABG in 2000, PVD with history of iliac artery stent in 1999 and, HTN, HLD, CKD stage III, hypothyroidism, chronic anemia, asthma, depression with anxiety who presents to ED secondary to nausea, vomiting and diarrhea x1 day. Nausea and vomiting Colitis Admitted to med telemetry Was on clear liquid and has been tolerating full liquid diet and will advance as tolerated Patient with significant leukocytosis 18,000 Leukocytosis has been improving which is 14,000 as of 02/28/2023 We will empirically treat with IV Zosyn-we will continue intravenous Zosyn for now Obtain stool culture and C. difficile when able-pending We will give additional 1 L of NSS maintenance fluids and reassess labs in a.m. Remains stable and has been feeling better We will continue current management and advance diet as tolerated Advised to ambulate with the help of nurse Likely discharge tomorrow on oral antibiotic Clinically much better without any acute symptoms Will be discharged home this afternoon on oral antibiotic to finish the complete course CKD stage III Acute dehydration Chronic, renal function is stable but patient does appear dry We will give gentle IV fluid Hold Dyazide and losartan for now Kidney function has been normal with hypokalemia Potassium will be replaced Blood pressure remains on the lower side and will continue to hold Dyazide and losartan and most likely Dyazide will be discontinued on discharge Continue with losartan on discharge and Dyazide should be discontinued Generalized weakness Status post reverse arthroplasty of left shoulder POD #[address] Varma Scheduled Tylenol, as needed ibuprofen and tramadol for pain Ice 3 times daily We will consult PT OT to determine if patient qualifies for any services or possible rehab Wants to go home today-we will get PT and OT evaluation prior to discharge Will have outpatient physical therapy as she was getting before CAD with history of CABG PVD HTN HLD Chronic, stable, no chest pain or shortness of breath, EKG reviewed Preoperative nuclear stress test also reviewed Currently on a full dose aspirin for DVT prophylaxis Continue statin, Zetia, Imdur, Cardura, metoprolol and amlodipine Hold Dyazide and losartan for now in setting of dehydration Resume when able Chronic anemia Chronic and hemoglobin stable at 9.0 Hypothyroidism Chronic, stable continue levothyroxine DVT prophylaxis: ASA 325 for 28 days, then discontinue and resume baby aspirin daily; SCDs Full code PCP: Jaden Total Time Total Time Spent Total Time Spent (In Minutes): 35 minutes Discharge Plan Discharge Items Patient Disposition: Home - Self-Care Reason For Visit: COLITIS Discharge Diagnosis: Nonspecific colitis involving left colon, nausea and vomiting, CONCEPCIÓN on CKD stage III, hypertension, CAD with history of CABG, recent left shoulder surgery Condition on Discharge: Good Activity: Resume your previous activity Activity Comment: Continue outpatient PT and OT Non-emergency contact: Primary Care Provider Call non-emergency contact if: you have any medication questions and your symptoms worsen Follow-up/Referrals: Kareem Stanley [Primary Care Provider] - 03/05/23 9:00 am Diet: Low Fiber Addtl Attending Provider Instructions: Please take precautions to avoid falls Please finish the course of antibiotic Keep appointment with your healthcare providers Follow-up with outpatient PT Pending Studies at Discharge: No Stand-Alone Forms: [facility], Smoking Cessation Medications and DC Order Prescriptions: New amoxicillin-pot clavulanate 875-125 mg tablet 1 tab PO BID Qty: 14 0RF Continued levothyroxine 75 mcg Tablet 75 mcg PO QAM albuterol sulfate 0.63 mg/3 mL Solution For Nebulization 0.63 mg INHALATION Q4H PRN (Reason: Wheezing) albuterol sulfate 90 mcg/actuation Hfa Aerosol Inhaler 2 puff INHALATION Q6H PRN (Reason: Wheezing) calcium 600 mg Capsule 600 mg PO QAM cyanocobalamin (vitamin B-12) [Vitamin B-12] 1,000 mcg Tablet Extended Release 1,000 mcg PO QAM metoprolol succinate 100 mg Tablet Extended Release 24 Hr 100 mg PO QAM amlodipine 2.5 mg Tablet 2.5 mg PO HS isosorbide mononitrate 60 mg Tablet Extended Release 24 Hr 60 mg PO HS isosorbide mononitrate 60 mg Tablet Extended Release 24 Hr 90 mg PO QAM citalopram [Celexa] 20 mg Tablet 20 mg PO QAM potassium chloride [Klor-Con 8] 8 mEq Tablet Extended Release 8 meq PO QAM pantoprazole [Protonix] 40 mg Tablet,Delayed Release (Dr/Ec) 40 mg PO HS nitroglycerin 0.4 mg Tablet, Sublingual 0.4 mg sublingual UD PRN (Reason: Chest Pain) magnesium 250 mg Tablet 250 mg PO HS lorazepam 1 mg Tablet 1 mg PO HS losartan 100 mg Tablet 100 mg PO QAM multivitamin Capsule 1 cap PO QAM dicyclomine 10 mg Capsule 10 mg PO TID PRN (Reason: Abdominal Pain) doxazosin [Cardura] 2 mg Tablet 2 mg PO HS ezetimibe [Zetia] 10 mg Tablet 10 mg PO QAM rosuvastatin [Crestor] 10 mg Tablet 20 mg PO HS aspirin 325 mg Tablet 325 mg PO DAILY Rx Instructions: until gone, then resume 81 mg dose. ibuprofen 600 mg tablet 600 mg PO Q6H acetaminophen 1 tab PO Q6H Rx Instructions: alternates with ibuprofen. didnt give dose. oxycodone See Rx Instructions .ROUTE .COMPLEX PRN (Reason: Pain) Rx Instructions: wasnt sure of dose, didn't give freq. Says it's to be used if ibuprofen and acetaminophen can't control pain Discontinued triamterene-hydrochlorothiazid 37.5-25 mg Capsule 1 cap PO UD Rx Instructions: mon - wed, wed aspirin 81 mg Tablet 81 mg PO HS Hold Instructions: Resume on 03/25/23. Take the prescribed 325mg dose of aspirin for 4 weeks, then resume your normal 81mg dose Discharge Orders: Discharge Order (Routine); Ordered 03/01/23 Ordered By: Buster Chang Admission Data Admit Date/Time: 02/27/23 12:49 Attending Provider: Buster Chang Admit Provider: Maria Teresa Samayoa Primary Care Provider: Kareem Stanley Other Providers: Maria Teresa Samayoa Other Interventions: Discharge Summary Assessment (RN) Last Done: 03/01/23 15:02
== END 2023-03-01 16:04 | disposition home or self-care (01) ==
LOC: ED 10:08 → 2N 10:08 → SUATTDRO 12:49 → 2N 14:49

== ENCOUNTER 2023-12-02 14:16 | Inpatient (IN) ==
[2023-12-02 14:43] LABS: Basophils # (auto) 0.05 K/uL (0.00-0.20); Basophils % (auto) 0.8 %; Eosinophils # (auto) 0.02 K/uL (0.00-0.50); Eosinophils % (auto) 0.3 %; Hematocrit (blood only) 32.7 % (37.0-47.0); Hemoglobin 11.1 g/dl (12.0-16.0); Immature Granulocytes # (auto) 0.02 K/uL (0.01-0.20); Immature Granulocytes % (auto) 0.3 %; Lymphocytes # (auto) 1.83 K/uL (1.20-3.40); Lymphocytes % (auto) 28.3 %; Mean Corpuscular Hgb Conc 33.9 g/dL (32.0-36.0); Mean Corpuscular Volume 94.2 fL (80.0-100.0); Mean Platelet Volume 11.8 fL (9.4-12.4); Monocytes # (auto) 0.59 K/uL (0.11-0.59); Monocytes % (auto) 9.1 %; Neutrophils # (auto) 3.96 K/uL (1.40-6.50); Neutrophils % (auto) 61.2 %; Platelet Count 198 K/uL (130-400); RDW Coefficient of Variation 13.5 % (11.5-14.5); RDW Standard Deviation 46.4 fL (36.4-46.3); Red Blood Count 3.47 M/uL (4.20-5.40); White Blood Count 6.47 K/ul (4.8-10.8)
[2023-12-02 15:00] LABS: INR 1.1 (0.9-1.1); Partial Thromboplastin Ratio 0.9; Partial Thromboplastin Time 25 Seconds (21-31); Prothrombin Time 11.8 Seconds (9.0-12.0)
[2023-12-02 15:08] LABS: Troponin I High Sensitivity 15.6 pg/ml (0-14)
--- NOTE | 2023-12-02 15:17 | XRay Report ---
XR chest 1V not portable CLINICAL HISTORY: Chest pain, nonspecific TECHNIQUE: Single frontal radiograph of the chest was obtained. Comparison: Comparison is made to rib series 07/19/2023 FINDINGS: Median sternotomy wires are seen including fractured third wire. Left reverse arthroplasty is seen. P osterior spinal fixation hardware is partially seen in the lumbar spine. The aorta is tortuous. The r emainder of the cardiomediastinal silhouette is unremarkable. The lungs are clear. No evidence of ple ural effusion or pneumothorax. IMPRESSION: No acute chest disease. ACT 112: Negative or not required by law. Electronically signed by: Sergio Marti M.D. 12/02/2023 3:15 PM
[2023-12-02 15:24] LABS: Albumin Level 4.1 gm/dl (3.4-5.0); Calcium 9.8 mg/dl (8.6-10.3); Potassium 3.8 mmol/L (3.5-5.1)
[2023-12-02 15:30] LABS: Albumin Globulin Ratio 1.4 (0.9-2); BUN Creatinine Ratio 28.1 (10-20); Creatinine Clr Calc Pharmacy 35.5 ml/min; Est GFR (African American) 70.9 ml/min; Est GFR (Non-African American) 61.2 ml/min; Total Protein 7.1 gm/dl (6.0-8.3)
[2023-12-02] MEDS: NITROGLYCERIN 2% OINTMENT 30GM TUBE EXT STA (15:55)
[2023-12-02 15:57] LABS: Magnesium 1.7 mg/dl (1.7-2.4)
--- NOTE | 2023-12-02 16:19 | Emergency Department Note ---
Impression & Plan Precordial chest pain, Elevated troponin, History of coronary artery disease ED Provider Note NAME: KALEB MACDONALD AGE: 78 SEX: F : 1945 ARRIVES VIA: Walk-In INFORMANT: [Patient][family] ED PROVIDER(S): [Avtar Serna MD] CHIEF COMPLAINT: Chest pain HISTORY OF PRESENT ILLNESS: The patient is an 78-year-old female who presents to the ER with several days of chest pain. The pain is along the left chest and does involve the left arm and sometimes the left neck/face. She states the pain seems to come and go randomly, she cannot link anything particular that seems to be responsible for the pain. She took 3 nitroglycerin yesterday for the pain and then 2 today. She does think the nitroglycerin helps. There has been no shortness of breath or sweating. The patient has not suffered chest trauma. She does have a history of coronary bypass x 3. The patient's family states that she was admitted recently around [facility] and to a hospital in [place] for similar discomfort although, no cardiac issue was found and no medication adjustments were made. PMHx/PSHx/Social Hx: See Below PHYSICAL EXAM: GENERAL: Patient is in no acute distress. HEENT: No acute trauma, normocephalic atraumatic, mucous membranes moist, no nasal congestion. NECK: No stridor, no adenopathy, no meningismus, trachea is midline. LUNGS: Clear to auscultation bilaterally, no wheeze, no rhonchi, breath sounds equal. Breath sounds are diminished bilaterally especially on the right. Chest: Nontender chest wall. HEART: Without murmurs gallops or rubs, regular rate and rhythm. ABDOMEN: Soft, nontender, no peritonitis. EXTREMITIES: No cyanosis, full range of motion of all the joints without pain or difficulty. NEUROLOGIC: Oriented x 3, no acute motor or sensory deficits, no focal weakness. SKIN: No jaundice, no diaphoresis. DIFFERENTIAL DIAGNOSIS: Angina, UT, pneumonia, musculoskeletal pain, aortic dissection, PE, among others. EMERGENCY DEPARTMENT PROCEDURES: MEDICAL DECISION MAKING: There is no leukocytosis. A mild anemia was seen however, this appears somewhat baseline looking back at previous testing. There was a normal platelet count. No coagulopathy. No renal failure or significant electrolyte abnormality. No concerning liver enzyme elevation. ECG showed a sinus rhythm, no obvious ischemia. Cardiac enzyme testing x 1 was slightly elevated. This troponin elevation could be secondary to cardiac injury or potentially mismatch. Urinalysis did not show findings of infection. Chest x-ray did not show any pneumonia or CHF. On exam, I could not reproduce the patient's chest pain. The patient presents with chest discomfort. She has known coronary artery disease. She has used at least 5 nitroglycerin in the last 24 hours for her discomfort. Patient is in need of a hospital stay for further cardiac workup. The patient was given 1 inch of nitroglycerin paste. No additional aspirin was given as she takes aspirin on a regular basis. I spoke with the patient about staying in the hospital for further testing, she did consent. I spoke with case management, the on-call hospitalist was consulted. Prior/Outside records/notes reviewed: None. ECG per my interpretation: Indication was chest pain. The ECG shows a sinus rhythm with a first-degree AV block. The rate is 67. There is some nonspecific ST change. No acute ST elevation, no PVCs. The QTc is 435. Continuous Cardiac Monitoring per my interpretation: An order was placed for continuous cardiac monitoring. The monitor shows a rate of 79 with sinus rhythm with a further AV block.. Imaging/x-ray results per my interpretation: Chest x-ray does not show mediastinal widening, pneumonia or pneumothorax. Chronic Medical/Social conditions affecting care: Advanced age. Care/Management discussed with: Case management, the on-call hospitalist. 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 Real Hyperlipidemia Hypertension Sleep apnea CPAP (non-compliant) Surgical History Status post lumbar surgery L3-4 decompression/fusion, hardware removal (10/03/21): Grade 2 view, MAC#3, ETT 7.0 at [facility]. Anesthesia postop progress note, "no major complications apparent and Pt Satisfied with anesthetic care.. postop somnolence after extubation, hypotensive responsive to BP medications and fluid bolus." S/P lumbar fusion History of esophagogastroduodenoscopy (EGD) Hx of thumb surgery right Status post trigger finger release left finger History of right cataract extraction History of left cataract extraction History of carpal tunnel surgery of left wrist S/P epidural steroid injection Hx of shoulder surgery right rotator cuff repair Hx of colonoscopy History of bunionectomy of right great toe x2 History of total right knee replacement History of total left knee replacement Hx of sinus surgery Hx of cholecystectomy History of cardiac cath 2019, no stents History of coronary artery bypass graft CABG x3 (1999) Family History Other No family history of adverse response to anesthesia No known health problems Social History Smoking Status: Never smoker Tobacco Type: Cigarettes Second Hand Exposure: No; Do You Dip or Chew Tobacco: No; Tobacco Cessation Education Requested by Patient: No Hx Alcohol Use: No Hx Substance Use: No Preferred Language: Mosotho Communication Ability: Effective Machine Iii Coremaker Required: No Beliefs That Will Affect Care: None marital status: arr Current Living Situation: Rehab current occupational status: retired How many Children do You have: 2 Other Information That Helps Us Care for You: No Feels Safe at Home: No Is there a partner from a previous relationship who is making you feel unsafe now?: No Any Concerns about Your Family Situation: No Would You Like to Speak to Someone About Your Situation: No Safety Concerns: Feels Safe At This Time Assistive Devices: Cane, Denture - Lower and Walker Allergies Allergies Allergy/AdvReac Type Severity Reaction Status Date / Time morphine AdvReac Mild IV Verified 12/02/23 17:16 morphine - vomiting oxycodone AdvReac Mild very Verified 12/02/23 17:16 nauseated, "goofy" Home Meds Home Medications Medication Instructions Recorded Confirmed amlodipine 2.5 mg tablet 2.5 mg PO QPM 01/23/21 12/02/23 cyanocobalamin (vitamin B-12) 1,000 mcg PO 3XWK 01/23/21 12/02/23 1,000 mcg tablet,extended release (Vitamin B-12 ER) doxazosin 2 mg tablet (Cardura) 2 mg PO QPM 01/23/21 12/02/23 ezetimibe 10 mg tablet (Zetia) 10 mg PO QPM 01/23/21 12/02/23 isosorbide mononitrate 60 mg 60 mg PO HS 01/23/21 12/02/23 tablet,extended release 24 hr isosorbide mononitrate 60 mg 90 mg PO QAM 01/23/21 12/02/23 tablet,extended release 24 hr lorazepam 1 mg tablet 1 mg PO AMHS 01/23/21 12/02/23 losartan 100 mg tablet 100 mg PO QAM 01/23/21 12/02/23 magnesium 250 mg tablet 250 mg PO QPM 01/23/21 12/02/23 nitroglycerin 0.4 mg sublingual 0.4 mg sublingual UD PRN Chest Pain 01/23/21 12/02/23 tablet pantoprazole 40 mg tablet,delayed 40 mg PO QAM 01/23/21 12/02/23 release (Protonix) potassium chloride 8 mEq 8 meq PO QAM 01/23/21 12/02/23 tablet,extended release (Klor-Con) aspirin 81 mg tablet,delayed 81 mg PO QPM 12/02/23 12/02/23 release (Ecotrin Low Strength) buspirone 15 mg tablet 15 mg PO BID 12/02/23 12/02/23 calcium carbonate (Calcium 600) 600 mg PO BID 12/02/23 12/02/23 dicyclomine 20 mg tablet 20 mg PO 3XWK 12/02/23 12/02/23 diphenhydramine 25 1 tab PO HS 12/02/23 12/02/23 mg-acetaminophen 500 mg tablet (Tylenol PM Extra Strength) fluticasone propionate 220 1 puff inhalation BID 12/02/23 12/02/23 mcg/actuation HFA aerosol inhaler levothyroxine 100 mcg tablet 100 mcg PO DAILYBB 12/02/23 12/02/23 meclizine 12.5 mg tablet 12.5 mg PO AMPM 12/02/23 12/02/23 multivitamin with minerals-folic 1 tab PO QAM 12/02/23 12/02/23 acid 0.4 mg tablet (One-A-Day Cholesterol Plus) omega 4-nsn-eko-fish oil 1,000 mg 2 cap PO QPM 12/02/23 12/02/23 (120 mg-180 mg) capsule (Fish Oil) rosuvastatin 20 mg tablet 20 mg PO QPM 12/02/23 12/02/23 sertraline 50 mg tablet 50 mg PO QAM 12/02/23 12/02/23 triamterene 37.5 1 cap PO QAM 12/02/23 12/02/23 mg-hydrochlorothiazide 25 mg capsule Results & Data (ED) Vital Signs Vital Signs - 24 hr 12/02/23 14:22 12/02/23 16:28 Temperature 36.6 C Temperature Source Temporal Artery Scan Pulse Rate 79 Pulse Rate [Apical] 67 Pulse Rhythm Regular Pulse Strength Normal Respiratory Rate 22 18 Respiratory Effort / Characteristics Non-Labored Spontaneous Non-Labored Spontaneous Respiratory Depth Normal Normal Respiratory Pattern Regular Regular Blood Pressure 149/65 H Blood Pressure [Right Arm] 133/72 Blood Pressure Mean 93 Blood Pressure Mean [Right Arm] 92 Blood Pressure Position Sitting Blood Pressure Position [Right Arm] Lying Pulse Oximetry 98 99 Oxygen Delivery Method Room Air Room Air Sepsis Recent Fever Within 48 Hours No Sepsis New/Unexplained Change in Mental Status No Sepsis Action Taken by Nursing No Action Required Home Medications Current Medication List: was personally reviewed by me Laboratory Data Attestation: I reviewed the patient's lab results. 12/02/23 17:00 12/02/23 14:28 Lab Results 12/02/23 12/02/23 Range/Units 14:28 16:45 WBC 6.47 (4.8-10.8) K/ul RBC 3.47 L (4.20-5.40) M/uL Hgb 11.1 L (12.0-16.0) g/dl Hct 32.7 L (37.0-47.0) % MCV 94.2 (80.0-100.0) fL MCH 32.0 (25.0-34.0) pg MCHC 33.9 (32.0-36.0) g/dL RDW Std Deviation 46.4 H (36.4-46.3) fL RDW Coeff of Daisy 13.5 (11.5-14.5) % Plt Count 198 (130-400) K/uL MPV 11.8 (9.4-12.4) fL Immature Gran % (Auto) 0.3 % Neut % (Auto) 61.2 % Lymph % (Auto) 28.3 % [place] % (Auto) 9.1 % Eos % (Auto) 0.3 % Baso % (Auto) 0.8 % Neut # (Auto) 3.96 (1.40-6.50) K/uL Lymph # (Auto) 1.83 (1.20-3.40) K/uL [place] # (Auto) 0.59 (0.11-0.59) K/uL Eos # (Auto) 0.02 (0.00-0.50) K/uL Baso # (Auto) 0.05 (0.00-0.20) K/uL Immature Gran # (Auto) 0.02 (0.01-0.20) K/uL PT 11.8 (9.0-12.0) Seconds INR 1.1 (0.9-1.1) APTT 25 (21-31) Seconds PTT Ratio 0.9 Sodium 140 (136-145) mmol/L Potassium 3.8 (3.5-5.1) mmol/L Chloride 104 (98-107) mmol/L Carbon Dioxide 27 (21-32) mmol/L Anion Gap 9 (3-11) BUN 25 H (6-23) mg/dl Creatinine 0.89 (0.6-1.2) mg/dl Est Cr Clr Drug Dosing 35.5 ml/min Est GFR ( Amer) 70.9 ml/min Est GFR (Non-Af Amer) 61.2 ml/min BUN/Creatinine Ratio 28.1 H (10-20) Glucose 86 (70-99(Fasting)) mg/dl Calcium 9.8 (8.6-10.3) mg/dl Magnesium 1.7 (1.7-2.4) mg/dl Total Bilirubin 1.0 (0.2-1.0) mg/dl AST 25 (13-39) U/L ALT 14 (7-52) U/L Alkaline Phosphatase 47 (34-104) U/L Troponin I High Sens 15.6 H (0-14) pg/ml Total Protein 7.1 (6.0-8.3) gm/dl Albumin 4.1 (3.4-5.0) gm/dl Globulin 3.0 (2.5-4.0) gm/dl Albumin/Globulin Ratio 1.4 (0.9-2) Urine Color Yellow Urine Appearance Clear (Clear) Urine pH 7.0 (4.5-7.5) Ur Specific [place] 1.008 (1.000-1.030) Urine Protein Negative (Negative) Urine Glucose (UA) Negative (Negative) Urine Ketones Negative (Negative) Urine Blood Negative (Negative) Urine Nitrite Negative (Negative) Urine Bilirubin Negative (Negative) Urine Urobilinogen Negative (Negative) Ur Leukocyte Esterase Negative (Negative) Administered Medications Discontinued Medications Nitroglycerin (Nitroglycerin 2% Ointment 30gm Tube) 1 inch EXT NOW STA Stop: 12/02/23 15:31 Last Admin: 12/02/23 15:55 Dose: 1 inch Documented By: STEVEN Imaging Data Radiologist's Impression: Chest X-Ray 12/02/23 14:26 XR chest 1V not portable CLINICAL HISTORY: Chest pain, nonspecific TECHNIQUE: Single frontal radiograph of the chest was obtained. Comparison: Comparison is made to rib series 07/19/2023 FINDINGS: Median sternotomy wires are seen including fractured third wire. Left reverse arthroplasty is seen. Posterior spinal fixation hardware is partially seen in the lumbar spine. The aorta is tortuous. The remainder of the cardiomediastinal silhouette is unremarkable. The lungs are clear. No evidence of pleural effusion or pneumothorax. IMPRESSION: No acute chest disease. ACT 112: Negative or not required by law. Electronically signed by: Sergio Marti M.D. 12/02/2023 3:15 PM Discharge Plan Visit Data Chief Complaint: Chest Pain Stated Complaint: NUMBNESS, TINGLING, HEAVY ON CHEST, NAUSEA ED Provider: Avtar Serna Discharge Problem: Precordial chest pain, Elevated troponin, History of coronary artery disease Patient Disposition: Admitted As Inpatient Condition: Fair Discharge Instructions Interventions: ED Discharge Assessment Last Done: 12/02/23 19:15
[2023-12-02] MEDS ORDERED: MAGNESIUM HYDROXIDE SUSP 30 ML UDC PO PRN (16:47)
[2023-12-02] MEDS ORDERED: ALUMINUM/MAGNESIUM SUSP 30 ML UDC PO PRN (16:47)
[2023-12-02] MEDS ORDERED: ACETAMINOPHEN 325 MG TAB PO PRN (16:47)
[2023-12-02] MEDS ORDERED: ONDANSETRON INJ 2 MG/ML 2 ML VIAL IV PRN (16:47)
[2023-12-02 17:06] LABS: Appearance Urine Clear (Clear); Bilirubin Urine Negative (Negative); Blood Urine Negative (Negative); Color Urine Yellow; Glucose Urine UA Negative (Negative); Ketones Urine Negative (Negative); Leukocyte Esterase Urine Negative (Negative); Nitrite Urine Negative (Negative); Protein Urine Negative (Negative); Specific Gravity Urine 1.008 (1.000-1.030); Urobilinogen Urine Negative (Negative)
--- NOTE | 2023-12-02 17:09 | History & Physical Report ---
Date of Service December 02, 2023 Assessment & Plan (1) Chest pain: (2) CAD (coronary artery disease): (3) Generalized weakness: (4) Unintentional weight loss: (5) CKD (chronic kidney disease), stage III: (6) Hypertension: (7) Hyperlipidemia: (8) PVD (peripheral vascular disease): Plan 78 y/o female that presents to the ED with chest pain with radiation into her left arm and intro her left jaw. that started on Wednesday that subsided but returned this morning, more intense. When she woke this morning she was having chest pain. She reports chest pain at rest. She took two Nitro SL yesterday and three Nitro SL today. She took Tylenol x2 and Aspirin today. Reports decreased appetite and unintentional weight loss over the past year. She did undergo left shoulder arthroscopy under the care of Dr. Varma in February 2023. PMH CAD s/p CABG x3 (1999 in [place]), HTN, HLD, depression, and anxiety. 10/2022 was in [place] was a similar presentation and they did an ECHO, MRI, ECG troponin which was reportedly all normal. Currently, she reports pain in her left arm that extends into her left jaw and occipital area that appears neuropathic. Her chest pain is not reproducible. She did have a stress ECHO in January 2023 pre op at [facility]. Pt will be admitted for further evaluation and management of her chest pain. Given ECG without ischemia; suspect elevated troponin due to ischemic demand rather than ACS. Will obtain neck CT imaging to rule out radiculopathy given recent shoulder surgery (02/2023). Will trend troponin, check TSH, Check UA/urine culture, keep NPO after MN pending trending of Troponin and consider Cardiology consultation should troponin continue to elevate/given her complex cardiac h istory. Chest pain: Acute Chest pain vs radiculopathy s/p left shoulder arthroscopy H/O CABG x3 (1999) performed in [place] No reproducible pain on exam Troponin 15.6; will trend x1 ECG without ischemic changes and do not suspect ACS rather ischemic demand related to pain Neuropathic pain that extends through left shoulder into jaw and occipital region of head--> order CT cervical neck Most recent ECHO: 08/2021: EF 55%, no wall motion abnormalities, mild MR. Stress ECHO 02/14 without abnormalities. NPO after MN pending Cardiology input Consider Cardiology consult if Troponin continues to increase or chest pain continues For now; provide symptom management with Tylenol scheduled, Dilaudid PRN, Voltaren gel and Lidocaine patch Generalized weakness: Unintentional weight loss: Chronic Check TSH May need more work up as outpatient to investigate this more PT/OT orders placed HTN: Chronic Takes Losartan, Metoprolol, Cardura, and Imdur; continue CKD: Chronic creatinine 0.89 HLD: Chronic Takes Rosuvastatin and Zetia; continue Hypothyroidism: Chronic Takes levothyroxine; continue Disposition: PCP: Unassigned Adalberto Ledezmaands Code Status: DNR/DNI VTE prophylaxis: Lovenox SQ I spent a total of 88 minutes coordinating, documenting, and providing care for this patient excluding time spent in the performance of separately billed services. All of the aforementioned completed while collaborating with the assigned attending physician for a full treatment plan. Please see their addendum for further details. History of Present Illness Chief Complaint: chest pain Primary Care Provider: Kareem Stanley Ms. Granda is an 78 year old female that presents to the ED with chest pain with radiation into her left arm and intro her right jaw. that started on Wednesday that subsided but returned this morning, more intense. When she woke this morning she was having chest pain. She reports chest pain at rest. She took two Nitro SL yesterday and three Nitro SL today. She took Tylenol x2 and Aspirin today. She can not report any exacerbating or relieving symptoms. When the pain would start she would rest and sit in a chair but was not doing anything involving exercise that contributed to the pain. Additional symptom includes polyuria that has been occurring over the past day or two. She reports nausea without vomiting over the past 24 hours as well. She last ate this morning at 0900. Reports decreased appetite and unintentional weight loss over the past year. She did undergo left shoulder arthroscopy under the care of Dr. Varma in February 2023. Pt has a PMH that includes CAD s/p CABG x3 (1999 in [place]), HTN, HLD, depression, anxiety, lumbar decompression/fusion surgery 2021. Most recent ECHO: 08/2021: EF 55%, no wall motion abnormalities, mild MR. Stress ECHO 02/14 without abnormalities. In October was in [place] was a similar presentation and they did an ECHO, MRI, ECG troponin which was reportedly all normal. We do not have access to those records for clarification; all information from pt and pt . Currently, she reports pain in her left arm that extends into her left jaw and occipital area that appears neuropathic. Her chest pain is not reproducible. She did have a stress ECHO in January 2023 pre op at [facility]. No leukocytosis, no fevers/chills, cough, visual or auditory changes, abdominal pain or tenderness, N/V/D, hematochezia. Pt is a prior smoker, quit 10 years ago. No alcohol or recreational drug use. No family oncological history. Last Colonoscopy 2013. Typically follows with [facility] PCP. Pt will be admitted for further evaluation and management of her chest pain. Given ECG without ischemia; suspect elevated troponin due to ischemic demand rather than ACS. Will obtain neck CT imaging to rule out radiculopathy given recent shoulder surgery (02/2023). Will trend troponin, check TSH, Check UA/urine culture, keep NPO after MN pending trending of Troponin and consider Cardiology consultation should troponin continue to elevate/given her complex cardiac history. Allergies Allergy/AdvReac Type Severity Reaction Status Date / Time morphine AdvReac Mild IV Verified 12/02/23 17:16 morphine - vomiting oxycodone AdvReac Mild very Verified 12/02/23 17:16 nauseated, "goofy" Home Medications Medication Instructions Recorded Confirmed Type amlodipine 2.5 mg tablet 2.5 mg PO QPM 01/23/21 12/02/23 History cyanocobalamin (vitamin B-12) 1,000 mcg PO 3XWK 01/23/21 12/02/23 History 1,000 mcg tablet,extended release (Vitamin B-12 ER) doxazosin 2 mg tablet (Cardura) 2 mg PO QPM 01/23/21 12/02/23 History ezetimibe 10 mg tablet (Zetia) 10 mg PO QPM 01/23/21 12/02/23 History isosorbide mononitrate 60 mg 60 mg PO HS 01/23/21 12/02/23 History tablet,extended release 24 hr isosorbide mononitrate 60 mg 90 mg PO QAM 01/23/21 12/02/23 History tablet,extended release 24 hr lorazepam 1 mg tablet 1 mg PO AMHS 01/23/21 12/02/23 History losartan 100 mg tablet 100 mg PO QAM 01/23/21 12/02/23 History magnesium 250 mg tablet 250 mg PO QPM 01/23/21 12/02/23 History nitroglycerin 0.4 mg sublingual 0.4 mg sublingual UD PRN Chest Pain 01/23/21 12/02/23 History tablet pantoprazole 40 mg tablet,delayed 40 mg PO QAM 01/23/21 12/02/23 History release (Protonix) potassium chloride 8 mEq 8 meq PO QAM 01/23/21 12/02/23 History tablet,extended release (Klor-Con) aspirin 81 mg tablet,delayed 81 mg PO QPM 12/02/23 12/02/23 History release (Ecotrin Low Strength) buspirone 15 mg tablet 15 mg PO BID 12/02/23 12/02/23 History calcium carbonate (Calcium 600) 600 mg PO BID 12/02/23 12/02/23 History dicyclomine 20 mg tablet 20 mg PO 3XWK 12/02/23 12/02/23 History diphenhydramine 25 1 tab PO HS 12/02/23 12/02/23 History mg-acetaminophen 500 mg tablet (Tylenol PM Extra Strength) fluticasone propionate 220 1 puff inhalation BID 12/02/23 12/02/23 History mcg/actuation HFA aerosol inhaler levothyroxine 100 mcg tablet 100 mcg PO DAILYBB 12/02/23 12/02/23 History meclizine 12.5 mg tablet 12.5 mg PO AMPM 12/02/23 12/02/23 History multivitamin with minerals-folic 1 tab PO QAM 12/02/23 12/02/23 History acid 0.4 mg tablet (One-A-Day Cholesterol Plus) omega [id number]-fish oil 1,000 mg 2 cap PO QPM 12/02/23 12/02/23 History (120 mg-180 mg) capsule (Fish Oil) rosuvastatin 20 mg tablet 20 mg PO QPM 12/02/23 12/02/23 History sertraline 50 mg tablet 50 mg PO QAM 12/02/23 12/02/23 History triamterene 37.5 1 cap PO QAM 12/02/23 12/02/23 History mg-hydrochlorothiazide 25 mg capsule Past Med/Surg History Medical History (Updated 12/02/23 @ 17:02 by LATANYA Rivas) Unintentional weight loss Chest pain Primary osteoarthritis, left shoulder CKD (chronic kidney disease), stage III Anemia No recent blood transfusion - no recent issues Follows with Yuri Molina Left shoulder pain Difficult to fully lift left arm- reason for upcoming procedure Asthma Stable Encounter for pre-operative examination PVD (peripheral vascular disease) 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 Real Hyperlipidemia Hypertension Sleep apnea CPAP (non-compliant) Surgical History Status post lumbar surgery L3-4 decompression/fusion, hardware removal (10/03/21): Grade 2 view, MAC#3, ETT 7.0 at [facility]. Anesthesia postop progress note, "no major complications apparent and Pt Satisfied with anesthetic care.. postop somnolence after extubation, hypotensive responsive to BP medications and fluid bolus." S/P lumbar fusion History of esophagogastroduodenoscopy (EGD) Hx of thumb surgery right Status post trigger finger release left finger History of right cataract extraction History of left cataract extraction History of carpal tunnel surgery of left wrist S/P epidural steroid injection Hx of shoulder surgery right rotator cuff repair Hx of colonoscopy History of bunionectomy of right great toe x2 History of total right knee replacement History of total left knee replacement Hx of sinus surgery Hx of cholecystectomy History of cardiac cath 2020, no stents History of coronary artery bypass graft CABG x3 (1999) Family History Other No family history of adverse response to anesthesia No known health problems Social History Smoking Status: Former smoker Tobacco Type: Cigarettes Second Hand Exposure: No; Do You Dip or Chew Tobacco: No; Hx Alcohol Use: Yes Alcohol type: wine Hx Substance Use: No Preferred Language: Bulgarian Communication Ability: Effective Vamp Creaser Required: No Beliefs That Will Affect Care: None marital status: arr Current Living Situation: Spouse current occupational status: retired How many Children do You have: 2 Feels Safe at Home: Yes Assistive Devices: Cane Review of Systems Review of Systems: Neuro: (-) Falls, trauma, slurred speech HEENT: (-) JUNIOR, dizziness, dysphagia, visual or auditory changes CV: (+) CP, palpitations, swelling Resp: (-) SOB GI: (-) appetite changes, N/V/D, bowel changes : (+) urinary changes, polyuria Skin: (-) rashes Psych: (-) anxiety, depression Physical Exam Physical Exam: See Dr. Hernandez addendum for physical examination Results & Data Results & Data Vital Signs (Past 12 Hours) Vital Signs Temp Pulse Pulse Resp BP BP Pulse Ox 12/02/23 16:28 67 18 133/72 99 12/02/23 14:22 36.6 C 79 22 149/65 H 98 O2 Del Method 12/02/23 16:28 Room Air 12/02/23 14:22 Room Air Laboratory Results Short CBC 12/02/23 Range/Units 14:28 WBC 6.47 (4.8-10.8) K/ul Hgb 11.1 L (12.0-16.0) g/dl Hct 32.7 L (37.0-47.0) % Plt Count 198 (130-400) K/uL BMP 12/02/23 14:28 Sodium 140 Potassium 3.8 Chloride 104 Carbon Dioxide 27 BUN 25 H Creatinine 0.89 Glucose 86 Calcium 9.8 Liver Function 12/02/23 Range/Units 14:28 Total Bilirubin 1.0 (0.2-1.0) mg/dl AST 25 (13-39) U/L ALT 14 (7-52) U/L Alkaline Phosphatase 47 (34-104) U/L Albumin 4.1 (3.4-5.0) gm/dl Diagnostic Findings Chest X-Ray 12/02/23 14:26 XR chest 1V not portable CLINICAL HISTORY: Chest pain, nonspecific TECHNIQUE: Single frontal radiograph of the chest was obtained. Comparison: Comparison is made to rib series 07/19/2023 FINDINGS: Median sternotomy wires are seen including fractured third wire. Left reverse arthroplasty is seen. Posterior spinal fixation hardware is partially seen in the lumbar spine. The aorta is tortuous. The remainder of the cardiomediastinal silhouette is unremarkable. The lungs are clear. No evidence of pleural effusion or pneumothorax. IMPRESSION: No acute chest disease. ACT 112: Negative or not required by law. Electronically signed by: Sergio Marti M.D. 12/02/2023 3:15 PM Code Status & VTE Plan Code Status Full Code in the event of cardiac or respiratory arrest VTE Prophylaxis Plan VTE Prophylaxis will be ordered: Yes Supervising Physician Co-Signing Physician Notes I have seen and discussed the case with the collaborating advanced practitioner. I agree with the above H&P. I have reviewed and confirmed the patients medical history, the findings on physical examination, and the patients diagnosis and treatment plan with Irina PELAEZ and agree with the information documented. In short, Ms. Granda is a 78 year old woman with history of CAD s/p CABG x3 (1999 in [place]), HTN, HLD, depression, and anxiety who is admitted for evaluation of "chest pain." Patient reports take 5 nitro in 24 hours due to pain that goes from her jaw to left arm. Further conversation revealed that the tightness she was experiencing was more in her arm and neck, rather than chest. She states the pain came on at rest. It was not exacerbated with exertion. It was not relieved with nitro. It was not substernal nor epigastric. She reports some neck discomfort. Reports recent admit in [place] for [facility]--underwent stress echo and mri which were negative GENERAL APPEARANCE: AxOx2-3 anxious woman HEENT: NC, AT. MMM. EOMI, clear conjunctiva, oropharynx clear. NECK: no tenderness along paraspinal muscles, no pain eludicated on flexion, extension, rotation; however discomfort noted up neck and down arm HEART: Normal rate and regular rhythm, normal S1/S1, no m/r/g LUNGS: CTAB, moving air well. No crackles or wheezes are heard. ABDOMEN: Soft, nontender, nondistended with good bowel sounds heard. BACK: No CVAT, no obvious deformity. EXTREMITIES: Without cyanosis, clubbing or edema. NEUROLOGICAL: Grossly nonfocal. Alert and oriented, moving all 4 extremities. CN not formally tested but appear grossly intact Skin: Warm and dry without any rash. #Chest pain, noncardiac v cardiac Low suspicion for ACS, mild trop iso chronic CAD, no changes on EKG ?for cervical radiculopathy? arm,neck, jaw pain s/p left shoulder replacement -CT neck -analgesia as above Monitor on tele Trend trop Consider Cards--however, low concern for ACS at this time as pain doesn't seem typical/atypical cardiac in nature, however, female and history leave open for concern for unstable angina rest of plan as as above I spent a total of 35 minutes coordinating, documenting, and providing care for this patient excluding time spent in the performance of separately billed services. All of the aforementioned completed outside of collaborating with the assigned advanced practitioner for a full treatment plan. I have reviewed the advanced practitioner's documentation, and I agree with, and take responsibility for the plan of care
[2023-12-02 17:17] LABS: Hematocrit (blood only) 30.7 % (37.0-47.0); Hemoglobin 10.3 g/dl (12.0-16.0); Mean Corpuscular Hemoglobin 31.6 pg (25.0-34.0); Mean Corpuscular Hgb Conc 33.6 g/dL (32.0-36.0); Mean Corpuscular Volume 94.2 fL (80.0-100.0); Mean Platelet Volume 11.7 fL (9.4-12.4); Platelet Count 180 K/uL (130-400); RDW Coefficient of Variation 13.3 % (11.5-14.5); RDW Standard Deviation 45.9 fL (36.4-46.3); Red Blood Count 3.26 M/uL (4.20-5.40); White Blood Count 5.55 K/ul (4.8-10.8)
[2023-12-02] MEDS ORDERED: HYDROmorphone INJ 0.5 MG/0.5 ML SYR IV PRN (17:31)
[2023-12-02] MEDS: DOXAZosin MESYLATE TAB 2 MG TAB PO SCH (21:24)
[2023-12-02] MEDS: busPIRone 15 MG TAB PO SCH (21:24)
[2023-12-02] MEDS: EZETIMIBE 10 MG TAB PO SCH (21:24)
[2023-12-02] MEDS: ACETAMINOPHEN 325 MG TAB PO SCH (21:25)
[2023-12-02] MEDS: ROSUVASTATIN CALCIUM 20 MG TAB PO SCH (21:25)
[2023-12-02] MEDS: ISOSORBIDE MONO EXTENDED REL 60 MG TABCR PO SCH (21:25)
[2023-12-02] MEDS: LORazepam 1 MG TAB PO SCH (21:25)
[2023-12-02] MEDS: MECLIZINE 12.5 MG TAB PO SCH (21:25)
[2023-12-02] MEDS: amLODIPine BESYLATE 5 MG TAB PO SCH (21:25)
[2023-12-02] MEDS: LIDOCAINE 5% 1 PATCH TD SCH (21:26)
[2023-12-02] MEDS: DICLOFENAC SOD 1% GEL 100 GM TUBE EXT SCH (21:26)
[2023-12-02] MEDS: ASPIRIN 81 MG ECTAB PO SCH (21:28)
[2023-12-02] MEDS: CALCIUM CARBONATE 1250MG TAB PO SCH (21:29)
[2023-12-03] MEDS ORDERED: Nursing to Pharmacy Communication SCH (02:15)
[2023-12-03] MEDS: LEVOTHYROXINE SODIUM 100 MCG TABLET PO SCH (06:16)
[2023-12-03 08:44] LABS: BUN Creatinine Ratio 30.1 (10-20); Calcium 9.7 mg/dl (8.6-10.3); Chol HDL Ratio 1.7 (0-5); Creatinine Clr Calc Pharmacy 38.1 ml/min; Est GFR (African American) 77.2 ml/min; Est GFR (Non-African American) 66.6 ml/min; Magnesium 1.7 mg/dl (1.7-2.4); Potassium 3.5 mmol/L (3.5-5.1)
--- NOTE | 2023-12-03 08:47 | Cardiology Consultation ---
Date of Consultation December 03, 2023 Assessment & Plan (1) Elevated troponin: (2) ASCVD (arteriosclerotic cardiovascular disease): (3) S/P CABG x 3: (4) Chest pain at rest: (5) HTN, goal below 130/80: (6) Dyslipidemia, goal LDL below 70: Plan 78-year-old female admitted with atypical chest pain. EKG without acute change. High-sensitivity troponin minimally elevated, flat. Chest x-ray clear. Telemetry benign. Resting echocardiography pending. Recommendations: 1. Medical management of cardiac issues at this time. 2. Add low-dose beta-tanesha therapy, metoprolol succinate 12.5 mg/day 3. Change isosorbide from twice daily dosing to 120 mg in the AM, allowing for nitrate free period 4. Continue aspirin, moderate intensity statin therapy, ezetimibe, ARB, and amlodipine 5. OK to feed from a cardiac standpoint. I spent a total of 55 minutes on the date of service in preparation, delivery, and documentation of the care provided to this patient excluding any time spent in the performance of separately billed services. This visit was a split-shared visit with the substantive portion of the medical decision making performed by the supervising underwriting technician/billing provider. Supervising Physician Co-Signing Physician Notes I have reviewed the advanced practitioner's documentation, and I agree with, and take responsibility for the plan of care Plan optimization of therapies with low-dose beta-atnesha and changing nitrate dosing No other further recommendations I spent a total of 25 minutes on the date of service in preparation, delivery, and documentation of the care provided to this patient excluding any time spent in the performance of separately billed services. History of Present Illness Reason for Consultation: Chest pain Requesting Physician: Dr. Narciso Cardenas MD Attending Physician: Narciso Cardenas MD History of Present Illness Mrs. Fanny Granda is a very pleasant 78-year-old female who was raised in the [place] by relatives. 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 The patient notes recently being prescribed new pills for anxiety which has been a chronic issue. Recently, she has been having substernal chest pain that she describes as "not bad, nagging, annoying." This discomfort can occur without rhyme or reason and has lasted for up to a day and a half though did ease during that time. She denies associated shortness of breath, diaphoresis, or nausea though does note some numbness in various locations from time to time. She has used a total of 5 sublingual nitroglycerin recently without prompt/overt improvement. 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 Patient also has been experiencing left shoulder/arm discomfort occurring randomly, not particularly occurring in association with substernal chest discomfort. No tachypalpitations. No resting or nocturnal shortness of breath. No chest congestion. No orthopnea, PND, or peripheral edema. No dizziness, near syncope, or syncope. No fevers or chills. + Weight loss. + Back pain. + Left shoulder pain. No melena, hematochezia, hematuria or dysuria. EKG on presentation revealed sinus rhythm at 67 bpm with a first-degree AV block, nonspecific STT wave abnormality; no acute ST-T segment change. High- sensitivity troponin 15.6 pg/mL on presentation then 18.3 pg/mL. Chest x-ray without congestive heart failure/acute process. H&H 10.3/30.7. Creatinine 0.89. LDL 40 mg/dL. Past Medical and Surgical History: Coronary artery disease - Status post CABG x 3 in [place], [place] in 08/1999 - May 2020 Coronary Angiography: 20% distal LM. 40% mid LAD stenosis. Atretic/occluded RICHTER. LCX with mild atherosclerosis. RCA with 70% mid in the LCX. RCA has "70% mid chronic total occlusion." SVG to RPDA occluded midway. Peripheral artery disease - Bilateral internal carotid artery disease - Mild right and moderate left lower extremity PAD Essential hypertension Hyperlipidemia Gastroesophageal reflux disease Hypothyroidism Anemia Anxiety Depression Osteoporosis Lumbar spine intervention Chronic back pain status post injections Cholecystectomy Right bunionectomy Carpal tunnel Bilateral cataract extraction Right thumb surgery Trigger finger release Right rotator cuff repair Sinus surgery Bilateral knee replacements Left should surgery Social History: Former smoker, quit in 05/2019. No smokeless tobacco. Social alcohol. No illegal drug use. Born in the [facility], living in multiple places as her was in the [place], returning to [place], [place] 4 to 5 years ago after her inherited the family farm. Family History: Unknown, raised by relatives. Sister without CAD. Allergies Allergy/AdvReac Type Severity Reaction Status Date / Time morphine AdvReac Mild IV Verified 12/02/23 17:16 morphine - vomiting oxycodone AdvReac Mild very Verified 12/02/23 17:16 nauseated, "goofy" Home Medications Medication Instructions Recorded Confirmed Type amlodipine 2.5 mg tablet 2.5 mg PO QPM 01/23/21 12/02/23 History cyanocobalamin (vitamin B-12) 1,000 mcg PO 3XWK 01/23/21 12/02/23 History 1,000 mcg tablet,extended release (Vitamin B-12 ER) doxazosin 2 mg tablet (Cardura) 2 mg PO QPM 01/23/21 12/02/23 History ezetimibe 10 mg tablet (Zetia) 10 mg PO QPM 01/23/21 12/02/23 History isosorbide mononitrate 60 mg 60 mg PO HS 01/23/21 12/02/23 History tablet,extended release 24 hr isosorbide mononitrate 60 mg 90 mg PO QAM 01/23/21 12/02/23 History tablet,extended release 24 hr lorazepam 1 mg tablet 1 mg PO AMHS 01/23/21 12/02/23 History losartan 100 mg tablet 100 mg PO QAM 01/23/21 12/02/23 History magnesium 250 mg tablet 250 mg PO QPM 01/23/21 12/02/23 History nitroglycerin 0.4 mg sublingual 0.4 mg sublingual UD PRN Chest Pain 01/23/21 12/02/23 History tablet pantoprazole 40 mg tablet,delayed 40 mg PO QAM 01/23/21 12/02/23 History release (Protonix) potassium chloride 8 mEq 8 meq PO QAM 01/23/21 12/02/23 History tablet,extended release (Klor-Con) aspirin 81 mg tablet,delayed 81 mg PO QPM 12/02/23 12/02/23 History release (Ecotrin Low Strength) buspirone 15 mg tablet 15 mg PO BID 12/02/23 12/02/23 History calcium carbonate (Calcium 600) 600 mg PO BID 12/02/23 12/02/23 History dicyclomine 20 mg tablet 20 mg PO 3XWK 12/02/23 12/02/23 History diphenhydramine 25 1 tab PO HS 12/02/23 12/02/23 History mg-acetaminophen 500 mg tablet (Tylenol PM Extra Strength) fluticasone propionate 220 1 puff inhalation BID 12/02/23 12/02/23 History mcg/actuation HFA aerosol inhaler levothyroxine 100 mcg tablet 100 mcg PO DAILYBB 12/02/23 12/02/23 History meclizine 12.5 mg tablet 12.5 mg PO AMPM 12/02/23 12/02/23 History multivitamin with minerals-folic 1 tab PO QAM 12/02/23 12/02/23 History acid 0.4 mg tablet (One-A-Day Cholesterol Plus) omega 0-qab-qkc-fish oil 1,000 mg 2 cap PO QPM 12/02/23 12/02/23 History (120 mg-180 mg) capsule (Fish Oil) rosuvastatin 20 mg tablet 20 mg PO QPM 12/02/23 12/02/23 History sertraline 50 mg tablet 50 mg PO QAM 12/02/23 12/02/23 History triamterene 37.5 1 cap PO QAM 12/02/23 12/02/23 History mg-hydrochlorothiazide 25 mg capsule Patient History Medical History Unintentional weight loss Chest pain Primary osteoarthritis, left shoulder CKD (chronic kidney disease), stage III Anemia No recent blood transfusion - no recent issues Follows with Yuri Molina Left shoulder pain Difficult to fully lift left arm- reason for upcoming procedure Asthma Stable Encounter for pre-operative examination PVD (peripheral vascular disease) 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 Real Hyperlipidemia Hypertension Sleep apnea CPAP (non-compliant) Surgical History Status post lumbar surgery L3-4 decompression/fusion, hardware removal (10/03/21): Grade 2 view, MAC#3, ETT 7.0 at [facility]. Anesthesia postop progress note, "no major complications apparent and Pt Satisfied with anesthetic care.. postop somnolence after extubation, hypotensive responsive to BP medications and fluid bolus." S/P lumbar fusion History of esophagogastroduodenoscopy (EGD) Hx of thumb surgery right Status post trigger finger release left finger History of right cataract extraction History of left cataract extraction History of carpal tunnel surgery of left wrist S/P epidural steroid injection Hx of shoulder surgery right rotator cuff repair Hx of colonoscopy History of bunionectomy of right great toe x2 History of total right knee replacement History of total left knee replacement Hx of sinus surgery Hx of cholecystectomy History of cardiac cath 2020, no stents History of coronary artery bypass graft CABG x3 (1999) Family History Other No family history of adverse response to anesthesia No known health problems Social History Smoking Status: Never smoker Tobacco Type: Cigarettes Second Hand Exposure: No; Do You Dip or Chew Tobacco: No; Tobacco Cessation Education Requested by Patient: No Hx Alcohol Use: No Hx Substance Use: No Preferred Language: Latvian Communication Ability: Effective Property Damage Claims Adjustor Required: No Beliefs That Will Affect Care: None marital status: arr Current Living Situation: Rehab current occupational status: retired How many Children do You have: 2 Other Information That Helps Us Care for You: No Feels Safe at Home: No Is there a partner from a previous relationship who is making you feel unsafe now?: No Any Concerns about Your Family Situation: No Would You Like to Speak to Someone About Your Situation: No Safety Concerns: Feels Safe At This Time Assistive Devices: Cane Review of Systems Review of Systems: Complete Review of Systems is as stated above, negative, or noncontributory. Physical Exam Physical Exam: General: A&Ox3. NAD. HENT: Normocephalic. Atraumatic. Eyes: PER. Conjunctiva pink, sclera clear. Neck: Right carotid bruits. No JVD. Heart: RRR. Grade I/ systolic ejection murmur. No diastolic murmur. PMI is nondisplaced. Lungs: Clear to auscultation. Abdomen: +BS. Soft. Nontender. No masses or organomegaly. Extremities: No clubbing, cyanosis, or edema. Limited neurological examination is without focal deficits. Pulses: radial=2/4, posterior tibial=1/4. Results & Data Vital Signs (Past 12 Hours) Vital Signs Temp Pulse Pulse Resp BP Pulse Ox O2 Del Method 12/03/23 07:47 36.4 C L 64 18 131/75 98 Room Air 12/03/23 03:10 36.7 C 76 18 126/73 98 Room Air 12/03/23 00:00 72 12/02/23 22:37 37.6 C H 79 18 119/56 L 97 Room Air Laboratory Results Cardiac Enzymes 12/02/23 12/02/23 Range/Units 14:28 18:06 AST 25 (13-39) U/L Troponin I High Sens 15.6 H 18.3 H (0-14) pg/ml Coagulation 12/02/23 Range/Units 14:28 PT 11.8 (9.0-12.0) Seconds APTT 25 (21-31) Seconds Lipids 12/03/23 Range/Units 06:53 Triglycerides 60 (0-150) mg/dl Cholesterol 122 (0-200) mg/dl HDL Cholesterol 70 mg/dl Cholesterol/HDL Ratio 1.7 (0-5) CBC 12/02/23 12/02/23 Range/Units 14:28 17:00 WBC 6.47 5.55 (4.8-10.8) K/ul RBC 3.47 L 3.26 L (4.20-5.40) M/uL Hgb 11.1 L 10.3 L (12.0-16.0) g/dl Hct 32.7 L 30.7 L (37.0-47.0) % Plt Count 198 180 (130-400) K/uL Neut # (Auto) 3.96 (1.40-6.50) K/uL Lymph # (Auto) 1.83 (1.20-3.40) K/uL [place] # (Auto) 0.59 (0.11-0.59) K/uL Eos # (Auto) 0.02 (0.00-0.50) K/uL Baso # (Auto) 0.05 (0.00-0.20) K/uL Comprehensive Metabolic Panel 12/02/23 12/03/23 Range/Units 14:28 06:53 Sodium 140 142 (136-145) mmol/L Potassium 3.8 3.5 (3.5-5.1) mmol/L Chloride 104 106 (98-107) mmol/L Carbon Dioxide 27 27 (21-32) mmol/L BUN 25 H 25 H (6-23) mg/dl Creatinine 0.89 0.83 (0.6-1.2) mg/dl Glucose 86 78 (70-99(Fasting)) mg/dl Calcium 9.8 9.7 (8.6-10.3) mg/dl AST 25 (13-39) U/L ALT 14 (7-52) U/L Alkaline Phosphatase 47 (34-104) U/L Total Protein 7.1 (6.0-8.3) gm/dl Albumin 4.1 (3.4-5.0) gm/dl Intake and Output 12/02/23 12/03/23 12/03/23 22:59 06:59 14:59 Intake Total 175 / 175 0 / 175 Balance 175 / 175 0 / 175 Intake: Oral 175 / 175 0 / 175 Other: # Unmeasured Voids 1 1 Weight 50.1 kg 50.2 kg Weight Measurement Method Standing Scale Built in [facility] Diagnostic Findings Telemetry: Sinus in the 70's and 80's. Occasional PVC.
[2023-12-03] MEDS: CYANOCOBALAMIN (B-12) 500 MCG TABLET PO SCH (08:52)
[2023-12-03] MEDS: SERTRALINE HCL 50 MG TABLET PO SCH (08:52)
[2023-12-03] MEDS: PANTOprazole 40 MG TAB PO SCH (08:53)
[2023-12-03] MEDS: TRIAMTERENE/HCTZ 37.5/25MG TAB PO SCH (08:53)
[2023-12-03] MEDS: LOSARTAN POTASSIUM 50 MG TAB PO SCH (08:53)
[2023-12-03] MEDS: ENOXAPARIN INJ 40 MG/0.4 ML SYR SQ SCH (08:54)
[2023-12-03] MEDS: FLUTICASONE FUROATE 200MCG 14 PUFFS/INHALER INH SCH (08:54)
[2023-12-03] MEDS: OPTIRAY 320 100ml IV ONE (09:30)
--- NOTE | 2023-12-03 09:38 | CT Scan Report ---
CT cervical spine w con CLINICAL HISTORY: cervical neuropathy; pre medicate with 1 mg Ativan TECHNIQUE: Multidetector row helical CT of the cervical spine was performed following administration of intravenous contrast. Coronal and sagittal reformations were obtained. Automated dose lowering fred hniques and/or adjustment according to patient size were utilized for this exam. Comparison: None available at the time of this dictation. FINDINGS: No acute fractures or subluxations are identified. Degenerative changes are seen in the visualized sp ine. This is most prominent in the right C2-C3, left C3-C4, and right C4-C5 neural foramina. The alig nment is normal. Soft tissues are unremarkable. IMPRESSION: Degenerative changes with bilateral neuroforaminal stenosis without evidence of acute bony injury. ACT 112: Negative or not required by law. Electronically signed by: Sergio Marti M.D. 12/03/2023 9:36 AM
[2023-12-03] MEDS: ISOSORBIDE MONO EXTENDED REL 30 MG TABCR PO SCH (09:44)
--- NOTE | 2023-12-03 13:34 | Hospitalist Progress Note ---
Date of Service December 03, 2023 Assessment & Plan (1) Chest pain: (2) CAD (coronary artery disease): (3) Generalized weakness: (4) Unintentional weight loss: (5) CKD (chronic kidney disease), stage III: (6) Hypertension: (7) Hyperlipidemia: (8) PVD (peripheral vascular disease): Plan 78 y/o female that presents to the ED with chest pain with radiation into her left arm and intro her left jaw. Chest pain: Likely secondary to angina ACS rule out H/O CABG x3 (1999) performed in [place] No reproducible pain on exam Troponin 15.6; > 18 EKG on admission personally reviewed; normal sinus rhythm with nonspecific ST and T wave changes Most recent ECHO: 08/2021: EF 55%, no wall motion abnormalities, mild MR. Stress ECHO 02/[address] cervical spine showed degenerative changes with bilateral foraminal stenosis without evidence of acute bony injury Echocardiogram shows EF of 55 to 60%; very mild hypokinesis of basal and mid septum. Aortic valve sclerosis moderate without stenosis Evaluated by cardiology; low-dose beta-tanesha added with metoprolol succinate 12.5/day. Isosorbide changed from twice daily dosing to 120 mg in the a.m. Continue on aspirin, statin, ARB and amlodipine HTN: Chronic Takes Losartan, Metoprolol, Cardura, and Imdur; continue CKD: Chronic creatinine 0.89 HLD: Chronic Takes Rosuvastatin and Zetia; continue Hypothyroidism: Chronic Takes levothyroxine; continue Disposition: PCP: Unassigned [facility] Code Status: DNR/DNI VTE prophylaxis: Lovenox SQ Time spent evaluating patient, direct bedside care, chart review, placing orders, interpretation of diagnostic studies, discussion with consultants, patient, and family members, as well as other required patient management activities is 50 minutes Please note the above document was generated using voice recognition software. It may contain grammatical, syntax or spelling errors. Any formal questions or concerns about the content, text or information contained within the body of this dictation should be directly addressed to the provider for clarification Admission and Anticipated Discharge Date Admission Date: December 02, 2023 Subjective Patient seen and examined at bedside She reports improvement in the chest pain overnight No significant events overnight Review of Systems Review of Systems: All systems reviewed & are unremarkable except as noted in Subjective Physical Exam Physical Exam: Constitutional: WD/WN, vitals as above, NAD, sitting up in bed, pleasant, conversing easily Respiratory: normal respiratory effort, lungs clear to auscultation, no wheeze, rales, rhonchi. Normal insp/exp effort, no accessory muscle use Cardiovascular: RRR, no murmur, no edema Vessels: no JVD or carotid bruit Chest: normal inspection of chest Abdomen: normal bowel sounds, soft, nontender, no hepatosplenomegaly Musculoskeletal: no cyanosis or clubbing, extremities motor strength 5/5 Skin: no rashes, warm and dry normal turgor Neurologic: PERRL, EOMI, accommodation nl, no face palsy, no dysarthria CN's II- XI intact bilaterally and moves all extremities Psychiatric: A+Ox3, euthymic affect Results & Data Results & Data Vital Signs (Past 12 Hours) Vital Signs Temp Pulse Pulse Resp BP Pulse Ox O2 Del Method 12/03/23 11:05 36.7 C 79 16 144/72 H 95 Room Air 12/03/23 10:00 80 12/03/23 07:47 36.4 C L 64 18 131/75 98 Room Air 12/03/23 03:10 36.7 C 76 18 126/73 98 Room Air
[2023-12-03] MEDS: METOPROLOL SUCC 25MG EXT REL TAB PO SCH (15:25)
--- NOTE | 2023-12-04 06:10 | Electrocardiogram Report ---
Test Reason : Blood Pressure : / mmHG Vent. Rate : 067 BPM Atrial Rate : 067 BPM P-R Int : 216 ms QRS Dur : 084 ms QT Int : 412 ms P-R-T Axes : 066 002 028 degrees QTc Int : 435 ms Sinus rhythm with 1st degree A-V block When compared with ECG of 27-FEB-2023 10:26, Nonspecific T wave abnormality, improved in Inferior leads Nonspecific T wave abnormality, improved in Anterolateral leads Confirmed by Doug Crowell ([id number]) on 12/04/2023 6:10:09 AM Referred By: REFERRED SELF Confirmed By:Doug Crowell
[2023-12-04] MEDS: ISOSORBIDE MONO EXTENDED REL 60 MG TABCR PO SCH (08:13)
--- NOTE | 2023-12-04 08:35 | Cardiology Progress Note ---
Date of Service December 04, 2023 Assessment & Plan (1) Elevated troponin: (2) ASCVD (arteriosclerotic cardiovascular disease): (3) S/P CABG x 3: (4) Chest pain at rest: (5) HTN, goal below 130/80: (6) Dyslipidemia, goal LDL below 70: Plan 78-year-old female admitted with atypical chest pain. EKG without acute change. High-sensitivity troponin minimally elevated, flat. Chest x-ray clear. Telemetry benign. Resting echocardiography pending. Recommendations: 1. Medical management of cardiac issues at this time. 2. Add low-dose beta-tanesha therapy, metoprolol succinate 12.5 mg/day 3. Change isosorbide from twice daily dosing to 120 mg in the AM, allowing for nitrate free period 4. Continue aspirin, moderate intensity statin therapy, ezetimibe, ARB, and amlodipine 5. OK to feed from a cardiac standpoint. 12/04/2023 Doing well with no signs of acute coronary syndrome or recurrent chest pain. Medications being optimized Plan as previously outlined with additional changes Will discontinue doxazosin given relatively low blood pressure Reduce losartan to 50 mg/day Continue other changes above No further recommendations from cardiac standpoint Recommend follow-up with Dr. Real, primary divorce lawyer shortly after discharge I spent a total of 35 minutes on the date of service in preparation, delivery, and documentation of the care provided to this patient excluding any time spent in the performance of separately billed services. Admission and Anticipated Discharge Date Admission Date: December 02, 2023 Subjective Patient was seen and examined, chart, medications, telemetry reviewed. Denies any chest pain or discomfort no arrhythmias overnight blood pressures trending slightly lower but overall doing well. Appetite only fair with recent weight loss attempting to increase oral intake. Physical Exam Physical Exam: General: A&Ox3. NAD. HENT: Normocephalic. Atraumatic. Eyes: PER. Conjunctiva pink, sclera clear. Neck: Right carotid bruits. No JVD. Heart: RRR. Grade I/ systolic ejection murmur. No diastolic murmur. PMI is nondisplaced. Lungs: Clear to auscultation. Abdomen: +BS. Soft. Nontender. No masses or organomegaly. Extremities: No clubbing, cyanosis, or edema. Limited neurological examination is without focal deficits. Pulses: radial=2/4, posterior tibial=1/4. Results & Data Vital Signs (Past 12 Hours) Vital Signs Temp Pulse Pulse Resp BP Pulse Ox O2 Del Method 12/04/23 07:30 36.7 C 59 L 17 102/62 97 Room Air 12/04/23 07:25 Room Air 12/04/23 02:40 36.9 C 63 18 117/64 94 Room Air 12/03/23 22:26 36.7 C 68 18 135/72 97 Room Air 12/03/23 22:08 63 12/03/23 21:05 Room Air Laboratory Results Laboratory Results - last 24 hr 12/03/23 06:53 Sodium 142 Potassium 3.5 Chloride 106 Carbon Dioxide 27 Anion Gap 9 BUN 25 H Creatinine 0.83 Est Cr Clr Drug Dosing 38.1 Est GFR ( Amer) 77.2 Est GFR (Non-Af Amer) 66.6 BUN/Creatinine Ratio 30.1 H Glucose 78 Calcium 9.7 Magnesium 1.7 Triglycerides 60 Cholesterol 122 LDL Cholesterol, Calc 40 VLDL Cholesterol, Calc 12 HDL Cholesterol 70 Cholesterol/HDL Ratio 1.7
--- NOTE | 2023-12-04 11:26 | Discharge Summary ---
Date of Service December 04, 2023 Admission HPI Per Admitting Provider Ms. Granda is an 78 year old female that presents to the ED with chest pain with radiation into her left arm and intro her right jaw. that started on Wednesday that subsided but returned this morning, more intense. When she woke this morning she was having chest pain. She reports chest pain at rest. She took two Nitro SL yesterday and three Nitro SL today. She took Tylenol x2 and Aspirin today. She can not report any exacerbating or relieving symptoms. When the pain would start she would rest and sit in a chair but was not doing anything involving exercise that contributed to the pain. Additional symptom includes polyuria that has been occurring over the past day or two. She reports nausea without vomiting over the past 24 hours as well. She last ate this morning at 0900. Reports decreased appetite and unintentional weight loss over the past year. She did undergo left shoulder arthroscopy under the care of Dr. Varma in February 2023. Pt has a PMH that includes CAD s/p CABG x3 (1999 in [place]), HTN, HLD, depression, anxiety, lumbar decompression/fusion surgery 2021. Most recent ECHO: 08/2021: EF 55%, no wall motion abnormalities, mild MR. Stress ECHO 02/14 without abnormalities. In October was in [place] was a similar presentation and they did an ECHO, MRI, ECG troponin which was reportedly all normal. We do not have access to those records for clarification; all information from pt and pt . Currently, she reports pain in her left arm that extends into her left jaw and occipital area that appears neuropathic. Her chest pain is not reproducible. She did have a stress ECHO in January 2023 pre op at [facility]. No leukocytosis, no fevers/chills, cough, visual or auditory changes, abdominal pain or tenderness, N/V/D, hematochezia. Pt is a prior smoker, quit 10 years ago. No alcohol or recreational drug use. No family oncological history. Last Colonoscopy 2013. Typically follows with [facility] PCP. Pt will be admitted for further evaluation and management of her chest pain. Given ECG without ischemia; suspect elevated troponin due to ischemic demand rather than ACS. Will obtain neck CT imaging to rule out radiculopathy given recent shoulder surgery (02/2023). Will trend troponin, check TSH, Check UA/urine culture, keep NPO after MN pending trending of Troponin and consider Cardiology consultation should troponin continue to elevate/given her complex cardiac history. Admission Exam Per Admitting Provider GENERAL APPEARANCE: AxOx2-3 anxious woman HEENT: NC, AT. MMM. EOMI, clear conjunctiva, oropharynx clear. NECK: no tenderness along paraspinal muscles, no pain eludicated on flexion, extension, rotation; however discomfort noted up neck and down arm HEART: Normal rate and regular rhythm, normal S1/S1, no m/r/g LUNGS: CTAB, moving air well. No crackles or wheezes are heard. ABDOMEN: Soft, nontender, nondistended with good bowel sounds heard. BACK: No CVAT, no obvious deformity. EXTREMITIES: Without cyanosis, clubbing or edema. NEUROLOGICAL: Grossly nonfocal. Alert and oriented, moving all 4 extremities. CN not formally tested but appear grossly intact Skin: Warm and dry without any rash. Principal Diagnosis Chest pain likely secondary to angina Discharge Exam Constitutional: WD/WN, vitals as above, NAD, sitting up in bed, pleasant, conversing easily Respiratory: normal respiratory effort, lungs clear to auscultation, no wheeze, rales, rhonchi. Normal insp/exp effort, no accessory muscle use Cardiovascular: RRR, no murmur, no edema Vessels: no JVD or carotid bruit Chest: normal inspection of chest Abdomen: normal bowel sounds, soft, nontender, no hepatosplenomegaly Musculoskeletal: no cyanosis or clubbing, extremities motor strength 5/5 Skin: no rashes, warm and dry normal turgor Neurologic: PERRL, EOMI, accommodation nl, no face palsy, no dysarthria CN's II- XI intact bilaterally and moves all extremities Psychiatric: A+Ox3, euthymic affect Discharge Data Allergies Allergy/AdvReac Type Severity Reaction Status Date / Time morphine AdvReac Mild IV Verified 12/02/23 17:16 morphine - vomiting oxycodone AdvReac Mild very Verified 12/02/23 17:16 nauseated, "goofy" Consultations 12/02/23 16:52 ED Decision to Admit Stat 12/03/23 07:21 Consult Cardiology Routine Ordered Studies 12/03/23 09:00 CT cervical spine w con Routine Hospital Course (1) Chest pain: (2) CAD (coronary artery disease): (3) Generalized weakness: (4) Unintentional weight loss: (5) CKD (chronic kidney disease), stage III: (6) Hypertension: (7) Hyperlipidemia: (8) PVD (peripheral vascular disease): Plan 78 y/o female that presents to the ED with chest pain with radiation into her left arm and intro her left jaw. Patient has a history of CABG in 1999, hypertension, hyperlipidemia, depression and anxiety. Patient took multiple doses of nitro prior to presentation. Troponin 15.6; > 18 EKG on admission; normal sinus rhythm with nonspecific ST and T wave changes Echocardiogram shows EF of 55 to 60%; very mild hypokinesis of basal and mid septum. Aortic valve sclerosis moderate without stenosis Cardiology was consulted for comanagement. Low-dose beta-tanesha was added. Isosorbide dosing was changed to 120 mg once a day. Doxazosin was stopped. Patient denies any episode of chest pain during the hospitalization. She was discharged home with instructions to follow-up with her primary care doctor and cardiology. Please note the above document was generated using voice recognition software. It may contain grammatical, syntax or spelling errors. Any formal questions or concerns about the content, text or information contained within the body of this dictation should be directly addressed to the provider for clarification Total Time Total Time Spent Total Time Spent (In Minutes): 45 Total Time Includes: Examination of the Patient, Discharge Planning, Medication Reconciliation, Communication With Other Providers and Other Discharge Plan Discharge Items Patient Disposition: Home - Self-Care Reason For Visit: CHEST PAIN Discharge Diagnosis: Chest pain, likely secondary to angina Condition on Discharge: Fair Activity: Resume your previous activity Non-emergency contact: Primary Care Provider Call non-emergency contact if: you have any medication questions and your symptoms worsen Follow-up/Referrals: Kareem Stanley [Primary Care Provider] - Diet: Regular Addtl Attending Provider Instructions: You were admitted to the hospital due to chest pain. You were evaluated by cardiology. Following changes to your medication regimen has been made: 1) Stop taking Cardura doxazosin. 2) Losartan dose is decreased from 100 mg to 50 mg once a day. A new prescription has been sent to your pharmacy 3) Take Imdur 120 mg (2 tablets) in the morning instead of taking 1 and half in the morning and 1 tablet in the evening. 4) Start taking metoprolol 12.5 mg( half tablet of 25mg) twice a day. Please follow-up with your weighter and your primary care doctor. Pending Studies at Discharge: No Stand-Alone Forms: [facility], Smoking Cessation Medications and DC Order Prescriptions: New losartan 50 mg Tablet 50 mg PO QAM Qty: 30 0RF isosorbide mononitrate 60 mg Tablet Extended Release 24 Hr 120 mg PO QAM Qty: 60 0RF metoprolol succinate 25 mg Tablet Extended Release 24 Hr 12.5 mg PO QAM Qty: 60 0RF Continued cyanocobalamin (vitamin B-12) [Vitamin B-12] 1,000 mcg Tablet Extended Release 1,000 mcg PO 3XWK Rx Instructions: wednesday,wednesday,wednesday mornings amlodipine 2.5 mg Tablet 2.5 mg PO QPM potassium chloride [Klor-Con 8] 8 mEq Tablet Extended Release 8 meq PO QAM pantoprazole [Protonix] 40 mg Tablet,Delayed Release (Dr/Ec) 40 mg PO QAM nitroglycerin 0.4 mg Tablet, Sublingual 0.4 mg sublingual UD PRN (Reason: Chest Pain) magnesium 250 mg Tablet 250 mg PO QPM lorazepam 1 mg Tablet 1 mg PO AMHS ezetimibe [Zetia] 10 mg Tablet 10 mg PO QPM aspirin [Ecotrin Low Strength] 81 mg Tablet,Delayed Release (Dr/Ec) 81 mg PO QPM levothyroxine 100 mcg tablet 100 mcg PO DAILYBB rosuvastatin 20 mg tablet 20 mg PO QPM dicyclomine 20 mg tablet 20 mg PO 3XWK Rx Instructions: take 1 tablet on WED,WED,WED morning calcium carbonate [Calcium 600] 600 mg calcium (1,500 mg) Tablet 600 mg PO BID buspirone 15 mg tablet 15 mg PO BID fluticasone propionate [Flovent HFA] 220 mcg/actuation HFA aerosol inhaler 1 puff INHALATION BID sertraline 50 mg tablet 50 mg PO QAM Rx Instructions: take with food meclizine 12.5 mg tablet 12.5 mg PO AMPM triamterene-hydrochlorothiazid [Dyazide] 37.5-25 mg Capsule 1 cap PO QAM multivit with min-folic acid [One-A-Day Cholesterol Plus] 0.4 mg Tablet 1 tab PO QAM Tylenol PM Extra Strength 25-500 mg Tablet 1 tab PO HS omega [id number]-fish oil [Fish Oil] 1,000 mg (120 mg-180 mg) Capsule 2 cap PO QPM Changed isosorbide mononitrate 60 mg Tablet Extended Release 24 Hr 120 mg PO QAM Qty: 60 0RF Discontinued isosorbide mononitrate 60 mg Tablet Extended Release 24 Hr 60 mg PO HS losartan 100 mg Tablet 100 mg PO QAM doxazosin [Cardura] 2 mg Tablet 2 mg PO QPM Discharge Orders: Discharge Order (Routine); Ordered 12/04/23 Ordered By: Narciso Cardenas Admission Data Admit Date/Time: 12/02/23 16:47 Attending Provider: Narciso Cardenas Admit Provider: Esha Hernandez Primary Care Provider: Kareem Stanley Other Providers: Esha Hernandez; Tiana Peoples; Gallito Archuleta; Ambrocio Moore; Sadi Ng; Bhaskar Randolph; Deng Hall; Renae Farley; Camila Woody Sowmya; Tiana Hurd; Vito Ledezma; Evelio Malone; Aletha Whitaker; Laurence Stewart; Selam Morris; Gordon Hassan; Kareem Griffin; Paige Alva
[2023-12-05] MEDS ORDERED: LOSARTAN POTASSIUM 50 MG TAB PO SCH (09:00)
== END 2023-12-04 14:35 | disposition home or self-care (01) | DRG 303 ==
LOC: ED 14:16 → SUATTDRO 16:47 → 2S 16:47

== ENCOUNTER 2024-02-26 20:21 | Observation (INO) ==
[2024-02-26 21:45] LABS: Alanine Aminotransferase 19 U/L (7-52); Albumin Globulin Ratio 1.4 (0.9-2); Albumin Level 3.9 gm/dl (3.4-5.0); Alkaline Phosphatase 60 U/L (34-104); Anion Gap 5 (3-11); Aspartate Aminotransferase 23 U/L (13-39); BUN Creatinine Ratio 22.9 (10-20); Bilirubin,Total 0.6 mg/dl (0.2-1.0); Blood Urea Nitrogen 25 mg/dl (6-23); Calcium 9.8 mg/dl (8.6-10.3); Carbon Dioxide 31 mmol/L (21-32); Chloride 105 mmol/L (98-107); Est GFR (African American) 55.5 ml/min; Est GFR (Non-African American) 47.9 ml/min; Globulin 2.7 gm/dl (2.5-4.0); Glucose 84 mg/dl (70-99(Fasting)); Lipase 32 U/L (11-82); Potassium 3.6 mmol/L (3.5-5.1); Sodium 141 mmol/L (136-145); Total Protein 6.6 gm/dl (6.0-8.3)
[2024-02-26 21:48] LABS: Appearance Urine Clear (Clear); Bilirubin Urine Negative (Negative); Blood Urine Negative (Negative); Color Urine Yellow; Glucose Urine UA Negative (Negative); Ketones Urine Negative (Negative); Leukocyte Esterase Urine Negative (Negative); Nitrite Urine Negative (Negative); Protein Urine Negative (Negative); Specific Gravity Urine 1.009 (1.000-1.030); Urobilinogen Urine Negative (Negative); pH Urine 8.5 (4.5-7.5)
[2024-02-26 21:51] LABS: Troponin I High Sensitivity 13.9 pg/ml (0-14)
--- NOTE | 2024-02-26 21:53 | Emergency Department Note ---
Impression & Plan Nausea, Urinary frequency, Recent weight loss ED Provider Note ED Provider Note NAME: KALEB MACDONALD AGE:78 SEX: Female : 1945 ARRIVES VIA: Private vehicle INFORMANT: Patient ED PROVIDER(s): Natalia Aguirre DO CHIEF COMPLAINT: Nausea, urinary frequency HPI: This is an 78-year-old male presents with at bedside due to concern for persistent nausea over the last 2 months, weight loss, and in the last 2 days increased urinary frequency. She denies any dysuria or hematuria. She states she was given ondansetron by her PCP for her nausea which only occasionally helps, and was referred to GI. She states initially symptoms were only at night, but now seem to happen throughout the day additionally. She states that her appointment is not till mid April though. She denies any change in the stools. She states she has not been eating much although she does try to drink fluids. estimates she has lost 80 pounds in the last 6 to 8 months. She denies any coming abdominal pain. She denies dizziness, headaches, chest pain, or increased shortness of breath. She states no recent change in any of her medications. No recent travel. No known sick contacts. No history of recurrent UTI or other kidney problems. Prior cholecystectomy. PAST MEDICAL HISTORY:See Below PAST SURGICAL HISTORY:See Below FAMILY HISTORY:See Below SOCIAL HISTORY:See Below HOME MEDICATIONS:See Below ALLERGIES:See Below VITALS:See Below PHYSICAL EXAMINATION: GENERAL: alert, well appearing, well nourished, no distress, non-toxic EYE EXAM: normal conjunctiva, PERRL and EOM's grossly intact OROPHARYNX: no exudate, no erythema, lips, buccal mucosa, and tongue normal and mucous membranes are moist NECK: supple, no nuchal rigidity, no adenopathy, non-tender LUNGS: Clear to auscultation. Normal chest wall mechanics, no w/r/r HEART: no murmurs, S1 normal and S2 normal, well-healed sternotomy scar, barrel chested ABDOMEN: abdomen soft, non-tender, normo-active bowel sounds, no masses, no rebound or guarding. SKIN: no rashes, petechiae, orbruising UPPER EXTREMITIES: upper extremities are grossly normal. FROM, nml pulses b/l. LOWER EXTREMITIES: No pitting edema. FROM, nml pulses b/l. NEURO EXAM: Normal sensorium, cranial nerves II-XII grossly intact, normal speech, no facial droop,nogross weakness of arms, no gross weakness of legs. Gross sensation intact. No ataxia. Vital Signs: reviewed and remarkable Differential Diagnosis: Gastroenteritis, Food Borne, Esophageal Perforation, Electrolyte Abnormality, Dehydration, Intraabdominal Infection, UTI/Pyelonephritis, Bowel Obstruction, Biliary Pathology, amongst other pathology entertained. MEDICAL DECISION MAKING: This is an 78-year-old male presents emergency department due to concern for worsening nausea and ongoing weight loss over the last 2 months as well as recent urinary frequency. Labs drawn and sent, IV established, EKG performed at bedside and interpreted by me and patient monitored on telemetry. Patient given IV Protonix, IV Pepcid, and IV Zofran without improvement. Oral Maalox tried additionally without any improvement. She was sent for CT of the abdomen and pelvis. This was read as reassuring without acute significant pathology by overnight outside radiology. Patient then given IV Reglan additionally. Due to concern for persistent symptoms despite medication, advanced age, and weight loss, case discussed with the hospitalist team for additional evaluation and management. Patient continued to deny any abdominal pain throughout, labs reassuring, however persistent sense of nausea and unable to tolerate p.o. Consultation(s): 0040: Discussed with Dr. Cardona, [facility] hospitalist for additional evaluation and mgmt. ER Treatment Provided: See below Diagnostics Interpreted By Me: -ECG: Normal sinus at 64, first-degree AV block, normal axis, normal intervals, no acute ST/T wave changes -Cardiac Monitoring: An order was placed for continuous cardiac monitoring. The monitor shows a rate of 76 with normal sinus rhythm. -Laboratory studies: As stated above and show below. -Imaging studies: CT a/p - no sbo, no perf Triage Nursing Note Reviewed Prior/Outside Records Reviewed Past Med/Surg History Problem List (Updated 02/27/24 @ 13:21 by Laurence Henry MD) Intrahepatic bile duct dilation Recent weight loss (Acute) Urinary frequency (Acute) Nausea (Acute) HTN, goal below 130/80 Chest pain at rest S/P CABG x 3 ASCVD (arteriosclerotic cardiovascular disease) History of coronary artery disease (Acute) Elevated troponin (Acute) Precordial chest pain (Acute) Unintentional weight loss Chest pain Generalized weakness Colitis Nausea & vomiting Acute dehydration (Acute) Colitis (Acute) Status post reverse arthroplasty of left shoulder Neurogenic claudication due to lumbar spinal stenosis Status post lumbar surgery PVD (peripheral vascular disease) 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 Real Hyperlipidemia Hypertension Sleep apnea CPAP (non-compliant) Surgical History Status post lumbar surgery L3-4 decompression/fusion, hardware removal (10/03/21): Grade 2 view, MAC#3, ETT 7.0 at [facility]. Anesthesia postop progress note, "no major complications apparent and Pt Satisfied with anesthetic care.. postop somnolence after extubation, hypotensive responsive to BP medications and fluid bolus." S/P lumbar fusion History of esophagogastroduodenoscopy (EGD) Hx of thumb surgery right Status post trigger finger release left finger History of right cataract extraction History of left cataract extraction History of carpal tunnel surgery of left wrist S/P epidural steroid injection Hx of shoulder surgery right rotator cuff repair Hx of colonoscopy History of bunionectomy of right great toe x2 History of total right knee replacement History of total left knee replacement Hx of sinus surgery Hx of cholecystectomy History of cardiac cath 2020, no stents History of coronary artery bypass graft CABG x3 (1999) Family History Other No family history of adverse response to anesthesia No known health problems Social History Smoking Status: Never smoker Tobacco Type: Cigarettes Second Hand Exposure: No; Do You Dip or Chew Tobacco: No; Tobacco Cessation Education Requested by Patient: No Hx Alcohol Use: Yes (socially only) Alcohol type: wine Hx Substance Use: No Preferred Language: Greenlandic Communication Ability: Effective Jail Manager Required: No Beliefs That Will Affect Care: None marital status: arr Current Living Situation: Spouse Current Living Situation Comment: pt and spouse live within their own home current occupational status: retired How many Children do You have: 2 Other Information That Helps Us Care for You: No Feels Safe at Home: Yes Safety Concerns: Feels Safe At This Time Assistive Devices: Cane Allergies Allergies Allergy/AdvReac Type Severity Reaction Status Date / Time morphine AdvReac Mild IV Verified 02/27/24 01:51 morphine - vomiting oxycodone AdvReac Mild very Verified 02/27/24 01:51 nauseated, "goofy" Home Meds Home Medications Medication Instructions Recorded Confirmed amlodipine 2.5 mg tablet 2.5 mg PO QPM 01/23/21 02/27/24 cyanocobalamin (vitamin B-12) 1,000 mcg PO 3XWK 01/23/21 02/27/24 1,000 mcg tablet,extended release (Vitamin B-12 ER) ezetimibe 10 mg tablet (Zetia) 10 mg PO QPM 01/23/21 02/27/24 lorazepam 1 mg tablet 1 mg PO AMHS 01/23/21 02/27/24 magnesium 250 mg tablet 250 mg PO QPM 01/23/21 02/27/24 nitroglycerin 0.4 mg sublingual 0.4 mg sublingual UD PRN Chest Pain 01/23/21 02/27/24 tablet pantoprazole 40 mg tablet,delayed 40 mg PO QAM 01/23/21 02/27/24 release (Protonix) potassium chloride 8 mEq 8 meq PO QAM 01/23/21 02/27/24 tablet,extended release (Klor-Con) aspirin 81 mg tablet,delayed 81 mg PO QPM 12/02/23 02/27/24 release (Ecotrin Low Strength) buspirone 15 mg tablet 15 mg PO BID 12/02/23 02/27/24 calcium carbonate (Calcium 600) 600 mg PO BID 12/02/23 02/27/24 dicyclomine 20 mg tablet 20 mg PO 3XWK 12/02/23 02/27/24 diphenhydramine 25 1 tab PO HS 12/02/23 02/27/24 mg-acetaminophen 500 mg tablet (Tylenol PM Extra Strength) fluticasone propionate 220 1 puff inhalation BID 12/02/23 02/27/24 mcg/actuation HFA aerosol inhaler levothyroxine 100 mcg tablet 100 mcg PO DAILYBB 12/02/23 02/27/24 meclizine 12.5 mg tablet 12.5 mg PO AMPM 12/02/23 02/27/24 multivitamin with minerals-folic 1 tab PO QAM 12/02/23 02/27/24 acid 0.4 mg tablet (One-A-Day Cholesterol Plus) omega 1-xiv-[id number]-fish oil 1,000 mg 2 cap PO QPM 12/02/23 02/27/24 (120 mg-180 mg) capsule (Fish Oil) rosuvastatin 20 mg tablet 20 mg PO QPM 12/02/23 02/27/24 sertraline 50 mg tablet 50 mg PO QAM 12/02/23 02/27/24 Previous Rx's Medication Instructions Recorded isosorbide mononitrate 60 mg 120 mg (2 x 60 mg) PO QAM #60 tabs 12/04/23 tablet,extended release 24 hr losartan 50 mg tablet 50 mg PO QAM #30 tabs 12/04/23 metoprolol succinate 25 mg 12.5 mg (1/2 x 25 mg) PO QAM #60 12/04/23 tablet,extended release 24 hr tabs Results & Data (ED) Vital Signs Vital Signs - 24 hr 02/27/24 00:00 02/27/24 01:24 02/27/24 02:00 Pulse Rate 71 Pulse Rate [Apical] 71 66 Respiratory Rate 20 14 Blood Pressure [Left Arm] 171/88 H 164/87 H Blood Pressure Mean [Left Arm] 115 112 Pulse Oximetry 98 98 Oxygen Delivery Method Room Air Room Air Laboratory Data 02/27/24 07:16 02/27/24 07:16 Lab Results 02/26/24 02/26/24 Range/Units 21:10 21:29 WBC 9.07 (4.8-10.8) K/ul RBC 3.59 L (4.20-5.40) M/uL Hgb 11.2 L (12.0-16.0) g/dl Hct 34.2 L (37.0-47.0) % MCV 95.3 (80.0-100.0) fL MCH 31.2 (25.0-34.0) pg MCHC 32.7 (32.0-36.0) g/dL RDW Std Deviation 44.6 (36.4-46.3) fL RDW Coeff of Daisy 12.9 (11.5-14.5) % Plt Count 219 (130-400) K/uL MPV 12.2 (9.4-12.4) fL Immature Gran % (Auto) 0.3 % Neut % (Auto) 57.9 % Lymph % (Auto) 25.1 % [place] % (Auto) 12.5 % Eos % (Auto) 3.2 % Baso % (Auto) 1.0 % Neut # (Auto) 5.25 (1.40-6.50) K/uL Lymph # (Auto) 2.28 (1.20-3.40) K/uL [place] # (Auto) 1.13 H (0.11-0.59) K/uL Eos # (Auto) 0.29 (0.00-0.50) K/uL Baso # (Auto) 0.09 (0.00-0.20) K/uL Immature Gran # (Auto) 0.03 (0.01-0.20) K/uL Sodium 141 (136-145) mmol/L Potassium 3.6 (3.5-5.1) mmol/L Chloride 105 (98-107) mmol/L Carbon Dioxide 31 (21-32) mmol/L Anion Gap 5 (3-11) BUN 25 H (6-23) mg/dl Creatinine 1.09 (0.6-1.2) mg/dl Est Cr Clr Drug Dosing Not Reportable Est GFR ( Amer) 55.5 ml/min Est GFR (Non-Af Amer) 47.9 ml/min BUN/Creatinine Ratio 22.9 H (10-20) Glucose 84 (70-99(Fasting)) mg/dl Calcium 9.8 (8.6-10.3) mg/dl Total Bilirubin 0.6 (0.2-1.0) mg/dl AST 23 (13-39) U/L ALT 19 (7-52) U/L Alkaline Phosphatase 60 (34-104) U/L Troponin I High Sens 13.9 (0-14) pg/ml Total Protein 6.6 (6.0-8.3) gm/dl Albumin 3.9 (3.4-5.0) gm/dl Globulin 2.7 (2.5-4.0) gm/dl Albumin/Globulin Ratio 1.4 (0.9-2) Lipase 32 (11-82) U/L Urine Color Yellow Urine Appearance Clear (Clear) Urine pH 8.5 H (4.5-7.5) Ur Specific [place] 1.009 (1.000-1.030) Urine Protein Negative (Negative) Urine Glucose (UA) Negative (Negative) Urine Ketones Negative (Negative) Urine Blood Negative (Negative) Urine Nitrite Negative (Negative) Urine Bilirubin Negative (Negative) Urine Urobilinogen Negative (Negative) Ur Leukocyte Esterase Negative (Negative) SARS-CoV-2, RNA, NAAT NEGATIVE (NEGATIVE) Administered Medications Acetaminophen (Acetaminophen 500 Mg Tab) 500 mg PO PM REJI Stop: 03/28/24 20:59 Last Admin: 02/27/24 20:28 Dose: 500 mg Documented By: ARNALDO Amlodipine Besylate (Amlodipine Besylate 5 Mg Tab) 2.5 mg PO QPM REJI Stop: 03/28/24 20:59 Last Admin: 02/27/24 20:29 Dose: 2.5 mg Documented By: ARNALDO Aspirin (Aspirin 81 Mg Ectab) 81 mg PO QPM REJI Stop: 03/28/24 20:59 Last Admin: 02/27/24 20:34 Dose: 81 mg Documented By: ARNALDO Buspirone HCl (Buspirone 15 Mg Tab) 15 mg PO BID REJI Stop: 03/28/24 08:59 Last Admin: 02/27/24 20:33 Dose: 15 mg Documented By: Admin: 02/27/24 09:34 Dose: 15 mg Documented By: AC Calcium/Vitamin D (Calcium 600mg + Vit D 400 Iu Tab) 1 tab PO BID REJI Stop: 03/28/24 08:59 Last Admin: 02/27/24 20:34 Dose: 1 tab Documented By: Admin: 02/27/24 09:33 Dose: 1 tab Documented By: AC Diphenhydramine HCl (Diphenhydramine Capsule 25 Mg Cap) 25 mg PO HS REJI Stop: 03/28/24 20:59 Last Admin: 02/27/24 20:36 Dose: 25 mg Documented By: ARNALDO Ezetimibe (Ezetimibe 10 Mg Tab) 10 mg PO QPM REJI Stop: 03/28/24 20:59 Last Admin: 02/27/24 20:35 Dose: 10 mg Documented By: ARNALDO Fluticasone Furoate (Fluticasone Furoate 200mcg 14 Puffs/Inhaler) 1 puffs INH DAILY REJI Stop: 03/28/24 08:59 Last Admin: 02/27/24 09:32 Dose: 1 puffs Documented By: AC Heparin Sodium (Porcine) (Heparin Sod 5,000 Unit/0.5 Ml Vial) 5,000 units SQ Q12 REJI Stop: 03/28/24 08:59 Last Admin: 02/27/24 20:23 Dose: 5,000 units Documented By: Admin: 02/27/24 09:28 Dose: Not Given Documented By: AC Dextrose/Sodium Chloride (D5w And 1/2nss) 1,000 mls @ 80 mls/hr IV .[id number] REJI Stop: 03/28/24 04:00 Last Admin: 02/27/24 20:25 Dose: 80 mls/hr Documented By: Infusion: 02/27/24 20:21 Dose: Infused Documented By: Admin: 02/27/24 05:21 Dose: 80 mls/hr Documented By: ARNALDO Famotidine (Pepcid 20mg Iv Push) 20 mg in 5 mls @ 2.5 mls/min IV Q12H REJI Stop: 03/28/24 08:59 Last Admin: 02/27/24 20:34 Dose: 2.5 mls/min Documented By: Admin: 02/27/24 09:40 Dose: 2.5 mls/min Documented By: AC Isosorbide Mononitrate (Isosorbide [place] Extended Rel 60 Mg Tabcr) 120 mg PO QAM REJI Stop: 03/28/24 08:59 Last Admin: 02/27/24 09:33 Dose: 120 mg Documented By: AC Levothyroxine Sodium (Levothyroxine Sodium 100 Mcg Tablet) 100 mcg PO DAILYBB [facility] Stop: 03/28/24 06:29 Last Admin: 02/27/24 06:28 Dose: 100 mcg Documented By: ARNALDO Lorazepam (Lorazepam 1 Mg Tab) 1 mg PO BID [facility] Stop: 03/28/24 08:59 Last Admin: 02/27/24 20:47 Dose: 1 mg Documented By: Admin: 02/27/24 09:32 Dose: 1 mg Documented By: AC Losartan Potassium (Losartan Potassium 50 Mg Tab) [facility] [place] Stop: 03/28/24 08:59 Last Admin: 02/27/24 09:33 Dose: 50 mg Documented By: AC Magnesium Oxide (Magnesium Oxide 400 Mg Tab) 400 mg PO QPM [facility] Stop: 03/28/24 20:59 Last Admin: 02/27/24 20:32 Dose: 400 mg Documented By: ARNALDO Meclizine HCl (Meclizine 12.5 Mg Tab) 12.5 mg PO BID [facility] Stop: 03/28/24 08:59 Last Admin: 02/27/24 20:32 Dose: 12.5 mg Documented By: Admin: 02/27/24 09:33 Dose: 12.5 mg Documented By: AC Metoprolol Succinate (Metoprolol Succ 25mg Ext Rel Tab) [facility] [place] Stop: 03/28/24 08:59 Last Admin: 02/27/24 09:33 Dose: 12.5 mg Documented By: AC Multivitamins/Minerals (Cerovite Adv Formula Tab) [facility] [place] Stop: 03/28/24 08:59 Last Admin: 02/27/24 09:32 Dose: 1 tab Documented By: AC Pantoprazole Sodium (Pantoprazole 40 Mg Tab) [facility] [place] Stop: 03/28/24 08:59 Last Admin: 02/27/24 09:32 Dose: 40 mg Documented By: AC Potassium Chloride (Potassium Chloride 10 Meq Tabcr) 10 meq PO [facility] Stop: 03/28/24 08:59 Last Admin: 02/27/24 09:32 Dose: 10 meq Documented By: AC Rosuvastatin Calcium (Rosuvastatin Calcium 20 Mg Tab) 20 mg PO QPM REJI Stop: 03/28/24 20:59 Last Admin: 02/27/24 20:33 Dose: 20 mg Documented By: ARNALDO Sertraline HCl (Sertraline Hcl 50 Mg Tablet) 50 mg PO QAM REJI Stop: 03/28/24 08:59 Last Admin: 02/27/24 09:32 Dose: 50 mg Documented By: MRE Discontinued Medications Al Hydrox/Mg Hydrox/Simethicone (Aluminum/Magnesium Susp 30 Ml Udc) Confirm Administered Dose 30 ml .ROUTE .STK-MED ONE Stop: 02/27/24 00:29 Last Admin: 02/27/24 00:38 Dose: Not Given Documented By: REBECA Al Hydrox/Mg Hydrox/Simethicone (Aluminum/Magnesium Susp 30 Ml Udc) 15 ml PO NOW STA Stop: 02/27/24 00:38 Last Admin: 02/27/24 00:38 Dose: 15 ml Documented By: REBECA Famotidine (Pepcid 20mg Iv Push) 20 mg in 5 mls @ 2.5 mls/min IV NOW STA Stop: 02/26/24 22:56 Last Admin: 02/26/24 23:00 Dose: 2.5 mls/min Documented By: OLU Pantoprazole Sodium 40 mg/ (Syringe) 10 mls @ 5 mls/min IV NOW ONE Stop: 02/27/24 00:00 Last Admin: 02/27/24 00:25 Dose: 5 mls/min Documented By: REBECA Ioversol (Optiray 320 100ml) 92 ml IV ONCE ONE Stop: 02/26/24 22:09 Last Admin: 02/26/24 22:08 Dose: 92 ml Documented By: KATI Metoclopramide HCl (Metoclopramide Hcl Inj 5 Mg/Ml 2 Ml Vial) 5 mg IV ONE ONE Stop: 02/27/24 00:36 Last Admin: 02/27/24 00:41 Dose: 5 mg Documented By: REBECA Ondansetron HCl (Ondansetron Inj 2 Mg/Ml 2 Ml Vial) 4 mg IV NOW STA Stop: 02/26/24 23:48 Last Admin: 02/27/24 00:02 Dose: 4 mg Documented By: REBECA Imaging Data Radiologist's Impression: Abdomen/Pelvis CT 02/26/24 21:23 Exam(s): CT ABDOMEN + PELVIS With Contrast IV Amt: 92 ml optiray 320 EXAM: CT Abdomen and Pelvis With Intravenous Contrast CLINICAL HISTORY: Reason for exam: nausea, weight loss. TECHNIQUE: Axial computed tomography images of the abdomen and pelvis with intravenous contrast. Automated exposure control was utilized for the study. A dose lowering technique was utilized adhering to the principles of ALARA. CONTRAST: Patient received 92 ml optiray 320 of IV contrast COMPARISON: CT abdomen pelvis February 27, 2023. FINDINGS: Lung bases: Unremarkable. No mass. No consolidation. ABDOMEN: Liver: Unremarkable. No mass. Gallbladder and bile ducts: Cholecystectomy. Intrahepatic biliary ductal dilation. Pancreas: Unremarkable. No mass. No ductal dilation. Spleen: Unremarkable. No splenomegaly. Adrenals: Unremarkable. No mass. Kidneys and ureters: Renal cyst measuring up to 4 cm in the RIGHT upper pole. No hydronephrosis. Stomach and bowel: Diverticulosis, without acute diverticulitis. No small bowel obstruction. No free intraperitoneal air. PELVIS: Appendix: No findings to suggest acute appendicitis. Bladder: Unremarkable. No mass. Reproductive: Atrophy of the uterus. ABDOMEN and PELVIS: Intraperitoneal space: Unremarkable. No free air. No significant fluid collection. Bones/joints: Sternotomy wires. Degenerative changes of the spine. Posterior fusion at L3-L5. No acute fracture. No dislocation. Soft tissues: Unremarkable. Vasculature: Atherosclerotic changes of the aorta. No abdominal aortic aneurysm. Lymph nodes: Unremarkable. No enlarged lymph nodes. IMPRESSION: 1. Cholecystectomy. Intrahepatic biliary ductal dilation. 2. Diverticulosis, without acute diverticulitis. No small bowel obstruction. No free intraperitoneal air. Electronically signed by: Dennis Mendez MD 02/27/24 00:20 AM Discharge Plan Visit Data Chief Complaint: Urinary Symptoms Stated Complaint: NAUSEA, FREQUENCY/UTI SYMPTOMS ED Provider: Natalia Aguirre Discharge Problem: Nausea, Urinary frequency, Recent weight loss Patient Disposition: Admitted As Inpatient Discharge Instructions Interventions: ED Discharge Assessment Last Done: 02/27/24 03:29
[2024-02-26 22:00] LABS: Basophils # (auto) 0.09 K/uL (0.00-0.20); Eosinophils # (auto) 0.29 K/uL (0.00-0.50); Eosinophils % (auto) 3.2 %; Hematocrit (blood only) 34.2 % (37.0-47.0); Hemoglobin 11.2 g/dl (12.0-16.0); Immature Granulocytes # (auto) 0.03 K/uL (0.01-0.20); Immature Granulocytes % (auto) 0.3 %; Lymphocytes # (auto) 2.28 K/uL (1.20-3.40); Lymphocytes % (auto) 25.1 %; Mean Corpuscular Hemoglobin 31.2 pg (25.0-34.0); Mean Corpuscular Hgb Conc 32.7 g/dL (32.0-36.0); Mean Corpuscular Volume 95.3 fL (80.0-100.0); Mean Platelet Volume 12.2 fL (9.4-12.4); Monocytes # (auto) 1.13 K/uL (0.11-0.59); Monocytes % (auto) 12.5 %; Neutrophils # (auto) 5.25 K/uL (1.40-6.50); Neutrophils % (auto) 57.9 %; Platelet Count 219 K/uL (130-400); RDW Coefficient of Variation 12.9 % (11.5-14.5); RDW Standard Deviation 44.6 fL (36.4-46.3); Red Blood Count 3.59 M/uL (4.20-5.40); White Blood Count 9.07 K/ul (4.8-10.8)
[2024-02-26] MEDS: OPTIRAY 320 100ml IV ONE (22:08)
[2024-02-26] MEDS: FAMOTIDINE 20MG IV PUSH 20 MG/5 ML SYR IV STA (23:00)
[2024-02-27] MEDS: ONDANSETRON INJ 2 MG/ML 2 ML VIAL IV STA (00:02)
--- NOTE | 2024-02-27 00:21 | CT Scan Report ---
Exam(s): CT ABDOMEN + PELVIS With Contrast IV Amt: 92 ml optiray 320 EXAM: CT Abdomen and Pelvis With Intravenous Contrast CLINICAL HISTORY: Reason for exam: nausea, weight loss. TECHNIQUE: Axial computed tomography images of the abdomen and pelvis with intravenous contrast. Automated exposure control was utilized for the study. A dose lowering technique was utilized adhering to the principles of ALARA. CONTRAST: Patient received 92 ml optiray 320 of IV contrast COMPARISON: CT abdomen pelvis February 27, 2023. FINDINGS: Lung bases: Unremarkable. No mass. No consolidation. ABDOMEN: Liver: Unremarkable. No mass. Gallbladder and bile ducts: Cholecystectomy. Intrahepatic biliary ductal dilation. Pancreas: Unremarkable. No mass. No ductal dilation. Spleen: Unremarkable. No splenomegaly. Adrenals: Unremarkable. No mass. Kidneys and ureters: Renal cyst measuring up to 4 cm in the RIGHT upper pole. No hydronephrosis. Stomach and bowel: Diverticulosis, without acute diverticulitis. No small bowel obstruction. No free intraperitoneal air. PELVIS: Appendix: No findings to suggest acute appendicitis. Bladder: Unremarkable. No mass. Reproductive: Atrophy of the uterus. ABDOMEN and PELVIS: Intraperitoneal space: Unremarkable. No free air. No significant fluid collection. Bones/joints: Sternotomy wires. Degenerative changes of the spine. Posterior fusion at L3-L5. No acute fracture. No dislocation. Soft tissues: Unremarkable. Vasculature: Atherosclerotic changes of the aorta. No abdominal aortic aneurysm. Lymph nodes: Unremarkable. No enlarged lymph nodes. IMPRESSION: 1. Cholecystectomy. Intrahepatic biliary ductal dilation. 2. Diverticulosis, without acute diverticulitis. No small bowel obstruction. No free intraperitoneal air. Electronically signed by: Dennis Mendez MD 02/27/24 00:20 AM
[2024-02-27] MEDS: PANTOprazole 40 MG in SYRINGE 0 ML IV ONE (00:25)
[2024-02-27] MEDS: ALUMINUM/MAGNESIUM SUSP 30 ML UDC PO STA (00:38)
[2024-02-27] MEDS: ALUMINUM/MAGNESIUM SUSP 30 ML UDC ONE (00:38)
[2024-02-27] MEDS: METOCLOPRAMIDE HCL INJ 5 MG/ML 2 ML VIAL IV ONE (00:41)
--- NOTE | 2024-02-27 03:20 | History & Physical Report ---
Date of Service February 27, 2024 Assessment & Plan (1) Nausea: Plan: 78-year-old female with past medical history significant for CAD s/p CABG in 1999, hypertension, hyperlipidemia, depression, anxiety, lumbar decompression fusion surgery 2021 comes because of persistent nausea going on for last 2 months. Patient states initially it was in the morning but now is more persistent. Her PCP gave Zofran but is not working much. Supposed to be seen by GI but has appointment in April in [place].Her PCP is in [place]. Today the nausea was more persistent and also she was micturating a lot and her brought her to the hospital. Patient says no vomiting. She is eating and swallowing okay but having persistent nausea. Which is bothering her. Somewhat constipated. Denies any blood in the stools or black stools. No burning micturition. No fevers. No cough. No chest pain or shortness of breath. No headache. Somewhat dizzy. Vision is okay. No runny nose or sore throat. Patient says she lost about 60 to 70 pounds in last 6 years. Since the nausea started a couple of months ago she lost few pounds. Currently hemodynamics are okay. Persistent nausea Going on for last [address] abdomen pelvis okay Continue home Protonix IV Pepcid 20 mg twice daily IV fluids Consult GI in a.m. for further recommendations CAD s/p CABG On aspirin, Zetia, metoprolol, rosuvastatin and Imdur Hyperlipidemia Zetia and rosuvastatin Hypertension On amlodipine, losartan, Imdur and metoprolol Last admission medications were adjusted by cardiology Hypothyroidism On Synthyroid Anxiety and depression Continue home medications Frequent micturition Today UA is okay Will monitor DVT prophylaxis Heparin subcu Disposition Medical floor Full code. History of Present Illness Chief Complaint: Persistent nausea Primary Care Provider: Florencio Boston PA-C 78-year-old female with past medical history significant for CAD s/p CABG in 1999, hypertension, hyperlipidemia, depression, anxiety, lumbar decompression fusion surgery 2021 comes because of persistent nausea going on for last 2 month s. Patient states initially it was in the morning but now is more persistent. Her PCP gave Zofran but is not working much. Supposed to be seen by GI but has appointment in April in [place].Her PCP is in [place]. Today the nausea was more persistent and also she was micturating a lot and her brought her to the hospital. Patient says no vomiting. She is eating and swallowing okay but having persistent nausea. Which is bothering her. Somewhat constipated. Denies any blood in the stools or black stools. No burning micturition. No fevers. No cough. No chest pain or shortness of breath. No headache. Somewhat dizzy. Vision is okay. No runny nose or sore throat. Patient says she lost about 60 to 70 pounds in last 6 years. Since the nausea started a couple of months ago she lost few pounds. Currently hemodynamics are okay. Past medical history. As mentioned above Past surgical history. Gallstones removal. CABG. Left knee replacement. Right foot bunion . Right knee arthroscopy. Right knee replacement. Left carpal tunnel release. Bilateral cataracts. Left trigger finger release of the ring finger. Colonoscopy. Lumbar fusion surgery. Left shoulder replacement. Social history. No smoking. Alcohol occasional. Family history. Patient does not know her family history as her family was split when she was young. Allergies Allergy/AdvReac Type Severity Reaction Status Date / Time morphine AdvReac Mild IV Verified 02/27/24 01:51 morphine - vomiting oxycodone AdvReac Mild very Verified 02/27/24 01:51 nauseated, "goofy" Home Medications Medication Instructions Recorded Confirmed Type amlodipine 2.5 mg tablet 2.5 mg PO QPM 01/23/21 02/27/24 History cyanocobalamin (vitamin B-12) 1,000 mcg PO 3XWK 01/23/21 02/27/24 History 1,000 mcg tablet,extended release (Vitamin B-12 ER) ezetimibe 10 mg tablet (Zetia) 10 mg PO QPM 01/23/21 02/27/24 History lorazepam 1 mg tablet 1 mg PO AMHS 01/23/21 02/27/24 History magnesium 250 mg tablet 250 mg PO QPM 01/23/21 02/27/24 History nitroglycerin 0.4 mg sublingual 0.4 mg sublingual UD PRN Chest Pain 01/23/21 02/27/24 History tablet pantoprazole 40 mg tablet,delayed 40 mg PO QAM 01/23/21 02/27/24 History release (Protonix) potassium chloride 8 mEq 8 meq PO QAM 01/23/21 02/27/24 History tablet,extended release (Klor-Con) aspirin 81 mg tablet,delayed 81 mg PO QPM 12/02/23 02/27/24 History release (Ecotrin Low Strength) buspirone 15 mg tablet 15 mg PO BID 12/02/23 02/27/24 History calcium carbonate (Calcium 600) 600 mg PO BID 12/02/23 02/27/24 History dicyclomine 20 mg tablet 20 mg PO 3XWK 12/02/23 02/27/24 History diphenhydramine 25 1 tab PO HS 12/02/23 02/27/24 History mg-acetaminophen 500 mg tablet (Tylenol PM Extra Strength) fluticasone propionate 220 1 puff inhalation BID 12/02/23 02/27/24 History mcg/actuation HFA aerosol inhaler levothyroxine 100 mcg tablet 100 mcg PO DAILYBB 12/02/23 02/27/24 History meclizine 12.5 mg tablet 12.5 mg PO AMPM 12/02/23 02/27/24 History multivitamin with minerals-folic 1 tab PO QAM 12/02/23 02/27/24 History acid 0.4 mg tablet (One-A-Day Cholesterol Plus) omega 3-vnd-uzn-fish oil 1,000 mg 2 cap PO QPM 12/02/23 02/27/24 History (120 mg-180 mg) capsule (Fish Oil) rosuvastatin 20 mg tablet 20 mg PO QPM 12/02/23 02/27/24 History sertraline 50 mg tablet 50 mg PO QAM 12/02/23 02/27/24 History isosorbide mononitrate 60 mg 120 mg (2 x 60 mg) PO QAM #60 tabs 12/04/23 02/27/24 Rx tablet,extended release 24 hr losartan 50 mg tablet 50 mg PO QAM #30 tabs 12/04/23 02/27/24 Rx metoprolol succinate 25 mg 12.5 mg (1/2 x 25 mg) PO QAM #60 12/04/23 02/27/24 Rx tablet,extended release 24 hr tabs Past Med/Surg History Problem List (Updated 02/26/24 @ 21:53 by Natalia Aguirre DO) Recent weight loss (Acute) Urinary frequency (Acute) Nausea (Acute) HTN, goal below 130/80 Chest pain at rest S/P CABG x 3 ASCVD (arteriosclerotic cardiovascular disease) History of coronary artery disease (Acute) Elevated troponin (Acute) Precordial chest pain (Acute) Unintentional weight loss Chest pain Generalized weakness Colitis Nausea & vomiting Acute dehydration (Acute) Colitis (Acute) Status post reverse arthroplasty of left shoulder Neurogenic claudication due to lumbar spinal stenosis Status post lumbar surgery PVD (peripheral vascular disease) 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 Real Hyperlipidemia Hypertension Sleep apnea CPAP (non-compliant) Surgical History Status post lumbar surgery L3-4 decompression/fusion, hardware removal (10/03/21): Grade 2 view, MAC#3, ETT 7.0 at [facility]. Anesthesia postop progress note, "no major complications apparent and Pt Satisfied with anesthetic care.. postop somnolence after extubation, hypotensive responsive to BP medications and fluid bolus." S/P lumbar fusion History of esophagogastroduodenoscopy (EGD) Hx of thumb surgery right Status post trigger finger release left finger History of right cataract extraction History of left cataract extraction History of carpal tunnel surgery of left wrist S/P epidural steroid injection Hx of shoulder surgery right rotator cuff repair Hx of colonoscopy History of bunionectomy of right great toe x2 History of total right knee replacement History of total left knee replacement Hx of sinus surgery Hx of cholecystectomy History of cardiac cath 2020, no stents History of coronary artery bypass graft CABG x3 (1999) Family History Other No family history of adverse response to anesthesia No known health problems Social History Smoking Status: Never smoker Tobacco Type: Cigarettes Second Hand Exposure: No; Do You Dip or Chew Tobacco: No; Tobacco Cessation Education Requested by Patient: No Hx Alcohol Use: Yes (socially only) Alcohol type: wine Hx Substance Use: No Preferred Language: Persian Communication Ability: Effective Grain Shipper Required: No Beliefs That Will Affect Care: None marital status: arr Current Living Situation: Spouse Current Living Situation Comment: pt and spouse live within their own home current occupational status: retired How many Children do You have: 2 Other Information That Helps Us Care for You: No Feels Safe at Home: Yes Safety Concerns: Feels Safe At This Time Assistive Devices: Cane Review of Systems Review of Systems: All systems reviewed & are unremarkable except as noted in HPI & below Physical Exam Physical Exam: General- Not in distress Head- atraumatic Eyes- PERRL. ENT- oropharynx clear Neck- supple, no JVD. Lungs- clear to auscultation no wheezing or crackles Heart- regular rhythm; no murmur, no gallop. Abdomen- normal bowel sounds, soft,mild diffuse discomfort , no distension Extremities- no pretibial edema, no erythema seen. Neuro- alert, oriented ,PERRL, no facial palsy; no dysarthria; moves extremities Results & Data Results & Data Vital Signs (Past 12 Hours) Vital Signs Temp Pulse Pulse Resp BP BP Pulse Ox 02/27/24 02:00 66 14 164/87 H 98 02/27/24 01:24 71 02/27/24 00:00 71 20 171/88 H 98 02/26/24 23:00 72 16 163/89 H 98 02/26/24 21:20 63 14 98 02/26/24 21:20 63 14 169/93 H 98 02/26/24 21:14 65 02/26/24 20:25 36.8 C 59 L 20 180/76 H 97 O2 Del Method 02/27/24 02:00 Room Air 02/27/24 01:24 02/27/24 00:00 Room Air 02/26/24 23:00 Room Air 02/26/24 21:20 Room Air 02/26/24 21:20 Room Air 02/26/24 21:14 02/26/24 20:25 Room Air Diagnostic Findings Laboratory Results WBC 9.07 K/ul (4.8-10.8) 02/26/24 21:10 RBC 3.59 M/uL (4.20-5.40) L 02/26/24 21:10 Hgb 11.2 g/dl (12.0-16.0) L 02/26/24 21:10 Hct 34.2 % (37.0-47.0) L 02/26/24 21:10 MCV 95.3 fL (80.0-100.0) 02/26/24 21:10 MCH 31.2 pg (25.0-34.0) 02/26/24 21:10 MCHC 32.7 g/dL (32.0-36.0) 02/26/24 21:10 RDW Std Deviation 44.6 fL (36.4-46.3) 02/26/24 21:10 RDW Coeff of Dasiy 12.9 % (11.5-14.5) 02/26/24 21:10 Plt Count 219 K/uL (130-400) 02/26/24 21:10 MPV 12.2 fL (9.4-12.4) 02/26/24 21:10 Immature Gran % (Auto) 0.3 % 02/26/24 21:10 Neut % (Auto) 57.9 % 02/26/24 21:10 Lymph % (Auto) 25.1 % 02/26/24 21:10 [place] % (Auto) 12.5 % 02/26/24 21:10 Eos % (Auto) 3.2 % 02/26/24 21:10 Baso % (Auto) 1.0 % 02/26/24 21:10 Neut # (Auto) 5.25 K/uL (1.40-6.50) 02/26/24 21:10 Lymph # (Auto) 2.28 K/uL (1.20-3.40) 02/26/24 21:10 [place] # (Auto) 1.13 K/uL (0.11-0.59) H 02/26/24 21:10 Eos # (Auto) 0.29 K/uL (0.00-0.50) 02/26/24 21:10 Baso # (Auto) 0.09 K/uL (0.00-0.20) 02/26/24 21:10 Immature Gran # (Auto) 0.03 K/uL (0.01-0.20) 02/26/24 21:10 Sodium 141 mmol/L (136-145) 02/26/24 21:10 Potassium 3.6 mmol/L (3.5-5.1) 02/26/24 21:10 Chloride 105 mmol/L (98-107) 02/26/24 21:10 Carbon Dioxide 31 mmol/L (21-32) 02/26/24 21:10 Anion Gap 5 (3-11) 02/26/24 21:10 BUN 25 mg/dl (6-23) H 02/26/24 21:10 Creatinine 1.09 mg/dl (0.6-1.2) 02/26/24 21:10 Est Cr Clr Drug Dosing Not Reportable 02/26/24 21:10 Est GFR ( Amer) 55.5 ml/min 02/26/24 21:10 Est GFR (Non-Af Amer) 47.9 ml/min 02/26/24 21:10 BUN/Creatinine Ratio 22.9 (10-20) H 02/26/24 21:10 Glucose 84 mg/dl (70-99(Fasting)) 02/26/24 21:10 Calcium 9.8 mg/dl (8.6-10.3) 02/26/24 21:10 Total Bilirubin 0.6 mg/dl (0.2-1.0) 02/26/24 21:10 AST 23 U/L (13-39) 02/26/24 21:10 ALT 19 U/L (7-52) 02/26/24 21:10 Alkaline Phosphatase 60 U/L (34-104) 02/26/24 21:10 Troponin I High Sens 13.9 pg/ml (0-14) 02/26/24 21:10 Total Protein 6.6 gm/dl (6.0-8.3) 02/26/24 21:10 Albumin 3.9 gm/dl (3.4-5.0) 02/26/24 21:10 Globulin 2.7 gm/dl (2.5-4.0) 02/26/24 21:10 Albumin/Globulin Ratio 1.4 (0.9-2) 02/26/24 21:10 Lipase 32 U/L (11-82) 02/26/24 21:10 Urine Color Yellow 02/26/24 21:10 Urine Appearance Clear (Clear) 02/26/24 21:10 Urine pH 8.5 (4.5-7.5) H 02/26/24 21:10 Ur Specific [place] 1.009 (1.000-1.030) 02/26/24 21:10 Urine Protein Negative (Negative) 02/26/24 21:10 Urine Glucose (UA) Negative (Negative) 02/26/24 21:10 Urine Ketones Negative (Negative) 02/26/24 21:10 Urine Blood Negative (Negative) 02/26/24 21:10 Urine Nitrite Negative (Negative) 02/26/24 21:10 Urine Bilirubin Negative (Negative) 02/26/24 21:10 Urine Urobilinogen Negative (Negative) 02/26/24 21:10 Ur Leukocyte Esterase Negative (Negative) 02/26/24 21:10 SARS-CoV-2, RNA, NAAT NEGATIVE (NEGATIVE) 02/26/24 21:29 Impressions Abdomen/Pelvis CT 02/26/24 21:23 Exam(s): CT ABDOMEN + PELVIS With Contrast IV Amt: 92 ml optiray 320 EXAM: CT Abdomen and Pelvis With Intravenous Contrast CLINICAL HISTORY: Reason for exam: nausea, weight loss. TECHNIQUE: Axial computed tomography images of the abdomen and pelvis with intravenous contrast. Automated exposure control was utilized for the study. A dose lowering technique was utilized adhering to the principles of ALARA. CONTRAST: Patient received 92 ml optiray 320 of IV contrast COMPARISON: CT abdomen pelvis February 27, 2023. FINDINGS: Lung bases: Unremarkable. No mass. No consolidation. ABDOMEN: Liver: Unremarkable. No mass. Gallbladder and bile ducts: Cholecystectomy. Intrahepatic biliary ductal dilation. Pancreas: Unremarkable. No mass. No ductal dilation. Spleen: Unremarkable. No splenomegaly. Adrenals: Unremarkable. No mass. Kidneys and ureters: Renal cyst measuring up to 4 cm in the RIGHT upper pole. No hydronephrosis. Stomach and bowel: Diverticulosis, without acute diverticulitis. No small bowel obstruction. No free intraperitoneal air. PELVIS: Appendix: No findings to suggest acute appendicitis. Bladder: Unremarkable. No mass. Reproductive: Atrophy of the uterus. ABDOMEN and PELVIS: Intraperitoneal space: Unremarkable. No free air. No significant fluid collection. Bones/joints: Sternotomy wires. Degenerative changes of the spine. Posterior fusion at L3-L5. No acute fracture. No dislocation. Soft tissues: Unremarkable. Vasculature: Atherosclerotic changes of the aorta. No abdominal aortic aneurysm. Lymph nodes: Unremarkable. No enlarged lymph nodes. IMPRESSION: 1. Cholecystectomy. Intrahepatic biliary ductal dilation. 2. Diverticulosis, without acute diverticulitis. No small bowel obstruction. No free intraperitoneal air. Electronically signed by: Dennis Mendez MD 02/27/24 00:20 AM ECG Additional Comments: ECG. Sinus rhythm with first-degree AV block with a rate of 64. QTc 429 Code Status & VTE Plan VTE Prophylaxis Plan VTE Prophylaxis will be ordered: Yes
[2024-02-27] MEDS ORDERED: ACETAMINOPHEN 325 MG TAB PO PRN (04:01)
[2024-02-27] MEDS ORDERED: PROMETHAZINE HCL 12.5 MG in SODIUM CHLORIDE 0.9% 50 ML IV PRN (04:01)
[2024-02-27] MEDS ORDERED: NITROGLYCERIN SL 0.4 MG/TAB TAB SL PRN (04:01)
[2024-02-27] MEDS: D5W AND 1/2NSS 1,000 ML IV SCH (05:21)
[2024-02-27] MEDS: LEVOTHYROXINE SODIUM 100 MCG TABLET PO SCH (06:28)
--- NOTE | 2024-02-27 07:02 | Electrocardiogram Report ---
Test Reason : Blood Pressure : / mmHG Vent. Rate : 064 BPM Atrial Rate : 064 BPM P-R Int : 216 ms QRS Dur : 094 ms QT Int : 416 ms P-R-T Axes : 058 010 043 degrees QTc Int : 429 ms Sinus rhythm with 1st degree A-V block Otherwise normal ECG When compared with ECG of 02-DEC-2023 14:29, Nonspecific T wave abnormality no longer evident in Anterior leads Confirmed by Monico Bishop ([id number]) on 02/27/2024 7:01:49 AM Referred By: REFERRED SELF Confirmed By:Lazaro Bishop
[2024-02-27 07:48] LABS: Basophils # (auto) 0.07 K/uL (0.00-0.20); Basophils % (auto) 0.9 %; Eosinophils # (auto) 0.09 K/uL (0.00-0.50); Eosinophils % (auto) 1.1 %; Hematocrit (blood only) 33.9 % (37.0-47.0); Hemoglobin 11.5 g/dl (12.0-16.0); Immature Granulocytes # (auto) 0.03 K/uL (0.01-0.20); Immature Granulocytes % (auto) 0.4 %; Lymphocytes # (auto) 1.31 K/uL (1.20-3.40); Lymphocytes % (auto) 16.7 %; Mean Corpuscular Hemoglobin 32.6 pg (25.0-34.0); Mean Corpuscular Hgb Conc 33.9 g/dL (32.0-36.0); Mean Platelet Volume 11.7 fL (9.4-12.4); Monocytes # (auto) 0.73 K/uL (0.11-0.59); Monocytes % (auto) 9.3 %; Neutrophils % (auto) 71.6 %; Platelet Count 213 K/uL (130-400); RDW Coefficient of Variation 12.9 % (11.5-14.5); RDW Standard Deviation 45.9 fL (36.4-46.3); Red Blood Count 3.53 M/uL (4.20-5.40); White Blood Count 7.83 K/ul (4.8-10.8)
[2024-02-27 08:00] LABS: BUN Creatinine Ratio 22.4 (10-20); Calcium 9.5 mg/dl (8.6-10.3); Creatinine Clr Calc Pharmacy 34.1 ml/min; Est GFR (Non-African American) 64.7 ml/min; Magnesium 1.8 mg/dl (1.7-2.4); Potassium 3.5 mmol/L (3.5-5.1)
[2024-02-27] MEDS: HEPARIN SOD 5,000 UNIT/0.5 ML VIAL SQ SCH (09:28)
[2024-02-27] MEDS: PANTOprazole 40 MG TAB PO SCH (09:32)
[2024-02-27] MEDS: SERTRALINE HCL 50 MG TABLET PO SCH (09:32)
[2024-02-27] MEDS: CEROVITE ADV FORMULA TAB PO SCH (09:32)
[2024-02-27] MEDS: POTASSIUM CHLORIDE 10 MEQ TABCR PO SCH (09:32)
[2024-02-27] MEDS: FLUTICASONE FUROATE 200MCG 14 PUFFS/INHALER INH SCH (09:32)
[2024-02-27] MEDS: LORazepam 1 MG TAB PO SCH (09:32)
[2024-02-27] MEDS: LOSARTAN POTASSIUM 50 MG TAB PO SCH (09:33)
[2024-02-27] MEDS: MECLIZINE 12.5 MG TAB PO SCH (09:33)
[2024-02-27] MEDS: ISOSORBIDE MONO EXTENDED REL 60 MG TABCR PO SCH (09:33)
[2024-02-27] MEDS: CALCIUM 600MG + VIT D 400 IU TAB PO SCH (09:33)
[2024-02-27] MEDS: METOPROLOL SUCC 25MG EXT REL TAB PO SCH (09:33)
[2024-02-27] MEDS: busPIRone 15 MG TAB PO SCH (09:34)
[2024-02-27] MEDS: FAMOTIDINE 20MG IV PUSH 20 MG/5 ML SYR IV SCH (09:40)
--- NOTE | 2024-02-27 12:12 | Hospitalist Progress Note ---
Date of Service February 27, 2024 Assessment & Plan (1) Nausea: Plan: 78-year-old female with past medical history significant for CAD s/p CABG in 1999, hypertension, hyperlipidemia, depression, anxiety, lumbar decompression fusion surgery 2021 comes because of persistent nausea going on for last 2 months. Patient states initially it was in the morning but now is more persistent. Her PCP gave Zofran but is not working much. Supposed to be seen by GI but has appointment in April in [place].Her PCP is in [place]. Today the nausea was more persistent and also she was micturating a lot and her brought her to the hospital. Patient says no vomiting. She is eating and swallowing okay but having persistent nausea. Which is bothering her. Somewhat constipated. Denies any blood in the stools or black stools. No burning micturition. No fevers. No cough. No chest pain or shortness of breath. No headache. Somewhat dizzy. Vision is okay. No runny nose or sore throat. Patient says she lost about 60 to 70 pounds in last 6 years. Since the nausea started a couple of months ago she lost few pounds. Currently hemodynamics are okay. Persistent nausea-More or less every morning without any vomiting and resolved with ODT Zofran Going on for last [address] abdomen pelvis okay Has been on IV Pepcid 20 mg twice daily IV fluids Clinically much better today and remains hemodynamically stable with unremarkable labs Awaiting GI evaluation Remains n.p.o. and she wants to be discharged CAD s/p CABG On aspirin, Zetia, metoprolol, rosuvastatin and Imdur Denies any cardiac symptoms Hyperlipidemia Zetia and rosuvastatin Hypertension On amlodipine, losartan, Imdur and metoprolol Last admission medications were adjusted by cardiology Blood pressure remains on the upper side at 161/69 Hypothyroidism On Synthyroid Anxiety and depression Continue home medications Frequent micturition Today UA is okay Will monitor DVT prophylaxis Heparin subcu Disposition Medical floor Full code. 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 without vomiting which has been going on for 2 months She has been using nebulizers ODT Zofran which helps the symptoms Denies any significant weight loss since She has an appointment with coordinate measuring machine programmer as an outpatient in April She is waiting to be seen by the GI specialist in the hospital for any immediate procedure Review of Systems Review of Systems: All systems reviewed and are unremarkable except as noted below Physical Exam Physical Exam: Sitting at the edge of the bed without any acute distress Constitutional: + thin; not ill appearing Eyes: PERRL, conjunctivae normal, anicteric sclerae ENMT: external ear and nose normal, oropharynx normal Neck: trachea midline, no thyromegaly Respiratory: no respiratory distress Auscultation: lungs clear to auscultation bilaterally Cardiovascular: Rate/Rhythm: regular rate and regular rhythm; not tachycardic Heart Sounds: normal S1 and normal S2; no murmur Extremities: no edema Gastrointestinal (Abdomen): Inspection/Auscultation: normal bowel sounds; abdomen not distended Percussion/Palpation: abdomen soft; abdomen nontender Musculoskeletal: No acute arthritis involving any of the joint Neurologic: normal touch/pain/proprioception and moves all extremities; no focal motor deficits Psychiatric: A+Ox3, euthymic affect Lymphatic: no cervical or axillary lymphadenopathy Results & Data Results & Data Vital Signs (Past 12 Hours) Vital Signs Temp Pulse Pulse Resp BP Pulse Ox O2 Del Method 02/27/24 07:48 36.6 C 64 18 161/69 H 96 Room Air 02/27/24 04:01 66 18 171/87 H 96 Room Air 02/27/24 04:01 36.4 C L 66 18 171/87 H 96 Room Air 02/27/24 04:00 66 18 171/87 H 96 Room Air 02/27/24 02:00 66 14 164/87 H 98 Room Air 02/27/24 01:24 71 Laboratory Results Short CBC 02/26/24 02/27/24 Range/Units 21:10 07:16 WBC 9.07 7.83 (4.8-10.8) K/ul Hgb 11.2 L 11.5 L (12.0-16.0) g/dl Hct 34.2 L 33.9 L (37.0-47.0) % Plt Count 219 213 (130-400) K/uL BMP 02/26/24 02/27/24 21:10 07:16 Sodium 141 141 Potassium 3.6 3.5 Chloride 105 105 Carbon Dioxide 31 30 BUN 25 H 19 Creatinine 1.09 0.85 Glucose 84 102 H Calcium 9.8 9.5 Liver Function 02/26/24 Range/Units 21:10 Total Bilirubin 0.6 (0.2-1.0) mg/dl AST 23 (13-39) U/L ALT 19 (7-52) U/L Alkaline Phosphatase 60 (34-104) U/L Albumin 3.9 (3.4-5.0) gm/dl Urine 02/26/24 Range/Units 21:10 Urine Color Yellow Urine Appearance Clear (Clear) Urine pH 8.5 H (4.5-7.5) Ur Specific [place] 1.009 (1.000-1.030) Urine Protein Negative (Negative) Urine Glucose (UA) Negative (Negative) Medications Administered Current Inpatient Medications Acetaminophen (Acetaminophen 325 Mg Tab) 650 mg PO Q4H PRN PRN Reason: pain/fever Stop: 03/28/24 04:00 Acetaminophen (Acetaminophen 500 Mg Tab) 500 mg PO PM REJI Stop: 03/28/24 20:59 Amlodipine Besylate (Amlodipine Besylate 5 Mg Tab) 2.5 mg PO QPM REJI Stop: 03/28/24 20:59 Aspirin (Aspirin 81 Mg Ectab) 81 mg PO QPM REJI Stop: 03/28/24 20:59 Buspirone HCl (Buspirone 15 Mg Tab) 15 mg PO BID REJI Stop: 03/28/24 08:59 Last Admin: 02/27/24 09:34 Dose: 15 mg Calcium/Vitamin D (Calcium 600mg + Vit D 400 Iu Tab) 1 tab PO BID REJI Stop: 03/28/24 08:59 Last Admin: 02/27/24 09:33 Dose: 1 tab Diphenhydramine HCl (Diphenhydramine Capsule 25 Mg Cap) 25 mg PO HS REJI Stop: 03/28/24 20:59 Ezetimibe (Ezetimibe 10 Mg Tab) 10 mg PO QPM REJI Stop: 03/28/24 20:59 Fluticasone Furoate (Fluticasone Furoate 200mcg 14 Puffs/Inhaler) 1 puffs INH DAILY REJI Stop: 03/28/24 08:59 Last Admin: 02/27/24 09:32 Dose: 1 puffs Heparin Sodium (Porcine) (Heparin Sod 5,000 Unit/0.5 Ml Vial) 5,000 units SQ Q12 REJI Stop: 03/28/24 08:59 Last Admin: 02/27/24 09:28 Dose: Not Given Dextrose/Sodium Chloride (D5w And 1/2nss) 1,000 mls @ 80 mls/hr IV .[id number] [facility] Stop: 03/28/24 04:00 Last Admin: 02/27/24 05:21 Dose: 80 mls/hr Promethazine HCl 12.5 mg/ (Sodium Chloride) 50.5 mls @ 202 mls/hr IV Q6H PRN PRN Reason: Nausea And Vomiting Stop: 03/28/24 04:00 Famotidine (Pepcid 20mg Iv Push) 20 mg in 5 mls @ 2.5 mls/min IV Q12H [facility] Stop: 03/28/24 08:59 Last Admin: 02/27/24 09:40 Dose: 2.5 mls/min Isosorbide Mononitrate (Isosorbide [place] Extended Rel 60 Mg Tabcr) [facility] [place] Stop: 03/28/24 08:59 Last Admin: 02/27/24 09:33 Dose: 120 mg Levothyroxine Sodium (Levothyroxine Sodium 100 Mcg Tablet) 100 mcg PO DAILYBB [facility] Stop: 03/28/24 06:29 Last Admin: 02/27/24 06:28 Dose: 100 mcg Lorazepam (Lorazepam 1 Mg Tab) 1 mg PO BID [facility] Stop: 03/28/24 08:59 Last Admin: 02/27/24 09:32 Dose: 1 mg Losartan Potassium (Losartan Potassium 50 Mg Tab) 50 mg PO QAM [facility] Stop: 03/28/24 08:59 Last Admin: 02/27/24 09:33 Dose: 50 mg Magnesium Oxide (Magnesium Oxide 400 Mg Tab) 400 mg PO QPM [facility] Stop: 03/28/24 20:59 Meclizine HCl (Meclizine 12.5 Mg Tab) 12.5 mg PO BID [facility] Stop: 03/28/24 08:59 Last Admin: 02/27/24 09:33 Dose: 12.5 mg Metoprolol Succinate (Metoprolol Succ 25mg Ext Rel Tab) 12.5 mg PO QAM [facility] Stop: 03/28/24 08:59 Last Admin: 02/27/24 09:33 Dose: 12.5 mg Multivitamins/Minerals (Cerovite Adv Formula Tab) 1 tab PO QAM [facility] Stop: 03/28/24 08:59 Last Admin: 02/27/24 09:32 Dose: 1 tab Nitroglycerin (Nitroglycerin Sl 0.4 Mg/Tab Tab) 0.4 mg SL UD PRN PRN Reason: Chest Pain Stop: 03/28/24 04:00 Pantoprazole Sodium (Pantoprazole 40 Mg Tab) [facility] [place] Stop: 03/28/24 08:59 Last Admin: 02/27/24 09:32 Dose: 40 mg Potassium Chloride (Potassium Chloride 10 Meq Tabcr) 10 meq [facility] [place] Stop: 03/28/24 08:59 Last Admin: 02/27/24 09:32 Dose: 10 meq Rosuvastatin Calcium (Rosuvastatin Calcium 20 Mg Tab) 20 mg PO QPM [facility] Stop: 03/28/24 20:59 Sertraline HCl (Sertraline Hcl 50 Mg Tablet) 50 [facility] [place] Stop: 03/28/24 08:59 Last Admin: 02/27/24 09:32 Dose: 50 mg
--- NOTE | 2024-02-27 13:24 | Gastrointestinal Consultation ---
Date of Consultation February 27, 2024 Assessment & Plan (1) Recent weight loss: (2) Nausea: (3) Anemia: uncertain history, very mild anemia here, followed by outpatient providers (4) Intrahepatic bile duct dilation: Normal LFTs. Uncomplicated ccy in 1971, no measurements provided on CT imaging; atypical to see intrahep sanford dil post CCY. Given weight loss and nausea, MRI for further characterization is warranted. Plan - allow soft diet now - MRCP and MRI abd w contrast - continue zofran, PPI - NPO p MN for EGD 02/28/24 History of Present Illness Reason for Consultation: nausea Attending Physician: Buster Chang MD History of Present Illness 78 year old female with CAD s/p CABG in 1999, HTN, HLD, distant uncomplicated CCY for gallstone disease presenting with 1 year of weight loss and 2 months of nausea. She reports uncertain GI symptoms in 2020 for which she underwent an EGD, colonoscopy and what sounds like capsule endoscopy in [facility] with Dr Montoya. She noticed weight loss of 60-70lbs over the last 1 year with a decrease in appetite. Perhaps 2 months ago, she developed nausea one morning that never left her. She was given ODT zofran which helps but does not resolve the nausea and she is only dispensed a small number of tablets with script fills. She has not been vomiting. Her nausea was severe on 02/25 which prompted ER eval. She denies headaches, changes in balance or bowels; no melena, hematochezia, constipation or diarrhea. She is on a number of medications but these have all been stable without dose changes. She has an appt with [facility] but it is not until April. Upon arrival to the ER, her labs were notable for a normal WBC, hct 33.9, normal creatinine and LFTs. A CT a/p w IV contrast was performed and was notable for prior CCY, intrahepatic sanford dil and a 4 cm renal cyst. She is NPO currently. Allergies Allergy/AdvReac Type Severity Reaction Status Date / Time morphine AdvReac Mild IV Verified 02/27/24 01:51 morphine - vomiting oxycodone AdvReac Mild very Verified 02/27/24 01:51 nauseated, "goofy" Home Medications Medication Instructions Recorded Confirmed Type amlodipine 2.5 mg tablet 2.5 mg PO QPM 01/23/21 02/27/24 History cyanocobalamin (vitamin B-12) 1,000 mcg PO 3XWK 01/23/21 02/27/24 History 1,000 mcg tablet,extended release (Vitamin B-12 ER) ezetimibe 10 mg tablet (Zetia) 10 mg PO QPM 01/23/21 02/27/24 History lorazepam 1 mg tablet 1 mg PO AMHS 01/23/21 02/27/24 History magnesium 250 mg tablet 250 mg PO QPM 01/23/21 02/27/24 History nitroglycerin 0.4 mg sublingual 0.4 mg sublingual UD PRN Chest Pain 01/23/21 02/27/24 History tablet pantoprazole 40 mg tablet,delayed 40 mg PO QAM 01/23/21 02/27/24 History release (Protonix) potassium chloride 8 mEq 8 meq PO QAM 01/23/21 02/27/24 History tablet,extended release (Klor-Con) aspirin 81 mg tablet,delayed 81 mg PO QPM 12/02/23 02/27/24 History release (Ecotrin Low Strength) buspirone 15 mg tablet 15 mg PO BID 12/02/23 02/27/24 History calcium carbonate (Calcium 600) 600 mg PO BID 12/02/23 02/27/24 History dicyclomine 20 mg tablet 20 mg PO 3XWK 12/02/23 02/27/24 History diphenhydramine 25 1 tab PO HS 12/02/23 02/27/24 History mg-acetaminophen 500 mg tablet (Tylenol PM Extra Strength) fluticasone propionate 220 1 puff inhalation BID 12/02/23 02/27/24 History mcg/actuation HFA aerosol inhaler levothyroxine 100 mcg tablet 100 mcg PO DAILYBB 12/02/23 02/27/24 History meclizine 12.5 mg tablet 12.5 mg PO AMPM 12/02/23 02/27/24 History multivitamin with minerals-folic 1 tab PO QAM 12/02/23 02/27/24 History acid 0.4 mg tablet (One-A-Day Cholesterol Plus) omega [id number] oil 1,000 mg 2 cap PO QPM 12/02/23 02/27/24 History (120 mg-180 mg) capsule (Fish Oil) rosuvastatin 20 mg tablet 20 mg PO QPM 12/02/23 02/27/24 History sertraline 50 mg tablet 50 mg PO QAM 12/02/23 02/27/24 History isosorbide mononitrate 60 mg 120 mg (2 x 60 mg) PO QAM #60 tabs 12/04/23 02/27/24 Rx tablet,extended release 24 hr losartan 50 mg tablet 50 mg PO QAM #30 tabs 12/04/23 02/27/24 Rx metoprolol succinate 25 mg 12.5 mg (1/2 x 25 mg) PO QAM #60 12/04/23 02/27/24 Rx tablet,extended release 24 hr tabs Patient History Medical History Unintentional weight loss Chest pain Primary osteoarthritis, left shoulder CKD (chronic kidney disease), stage III Anemia No recent blood transfusion - no recent issues Follows with Yuri Molina Left shoulder pain Difficult to fully lift left arm- reason for upcoming procedure Asthma Stable Encounter for pre-operative examination PVD (peripheral vascular disease) 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 Real Hyperlipidemia Hypertension Sleep apnea CPAP (non-compliant) Surgical History Status post lumbar surgery L3-4 decompression/fusion, hardware removal (10/03/21): Grade 2 view, MAC#3, ETT 7.0 at [facility]. Anesthesia postop progress note, "no major complications apparent and Pt Satisfied with anesthetic care.. postop somnolence after extubation, hypotensive responsive to BP medications and fluid bolus." S/P lumbar fusion History of esophagogastroduodenoscopy (EGD) Hx of thumb surgery right Status post trigger finger release left finger History of right cataract extraction History of left cataract extraction History of carpal tunnel surgery of left wrist S/P epidural steroid injection Hx of shoulder surgery right rotator cuff repair Hx of colonoscopy History of bunionectomy of right great toe x2 History of total right knee replacement History of total left knee replacement Hx of sinus surgery Hx of cholecystectomy History of cardiac cath 2020, no stents History of coronary artery bypass graft CABG x3 (1999) Family History Other No family history of adverse response to anesthesia No known health problems Social History Smoking Status: Never smoker Tobacco Type: Cigarettes Second Hand Exposure: No; Do You Dip or Chew Tobacco: No; Tobacco Cessation Education Requested by Patient: No Hx Alcohol Use: Yes (socially only) Alcohol type: wine Hx Substance Use: No Preferred Language: Mongolian Communication Ability: Effective Counter Roller Required: No Beliefs That Will Affect Care: None marital status: arr Current Living Situation: Spouse Current Living Situation Comment: pt and spouse live within their own home current occupational status: retired How many Children do You have: 2 Other Information That Helps Us Care for You: No Feels Safe at Home: Yes Safety Concerns: Feels Safe At This Time Assistive Devices: Cane Review of Systems Review of Systems: All systems reviewed & are unremarkable except as noted in HPI & below Physical Exam Constitutional: WD/WN, vitals as above Eyes: PERRL, conjunctivae normal, anicteric sclerae Respiratory: normal respiratory effort, lungs clear to auscultation Cardiovascular: RRR, no murmur, no edema Gastrointestinal (Abdomen): normal bowel sounds, soft, nontender, no hepatosplenomegaly Musculoskeletal: no cyanosis or clubbing, extremities motor strength 5/5 Results & Data Vital Signs (Past 12 Hours) Vital Signs Temp Pulse Pulse Resp BP Pulse Ox O2 Del Method 02/27/24 07:48 36.6 C 64 18 161/69 H 96 Room Air 02/27/24 04:01 66 18 171/87 H 96 Room Air 02/27/24 04:01 36.4 C L 66 18 171/87 H 96 Room Air 02/27/24 04:00 66 18 171/87 H 96 Room Air 02/27/24 02:00 66 14 164/87 H 98 Room Air 02/27/24 01:24 71 Laboratory Results Lab Results 02/26/24 02/26/24 02/27/24 Range/Units 21:10 21:29 07:16 WBC 9.07 7.83 (4.8-10.8) K/ul RBC 3.59 L 3.53 L (4.20-5.40) M/uL Hgb 11.2 L 11.5 L (12.0-16.0) g/dl Hct 34.2 L 33.9 L (37.0-47.0) % MCV 95.3 96.0 (80.0-100.0) fL MCH 31.2 32.6 (25.0-34.0) pg MCHC 32.7 33.9 (32.0-36.0) g/dL RDW Std Deviation 44.6 45.9 (36.4-46.3) fL RDW Coeff of Daisy 12.9 12.9 (11.5-14.5) % Plt Count 219 213 (130-400) K/uL MPV 12.2 11.7 (9.4-12.4) fL Immature Gran % (Auto) 0.3 0.4 % Neut % (Auto) 57.9 71.6 % Lymph % (Auto) 25.1 16.7 % Bates % (Auto) 12.5 9.3 % Eos % (Auto) 3.2 1.1 % Baso % (Auto) 1.0 0.9 % Neut # (Auto) 5.25 5.60 (1.40-6.50) K/uL Lymph # (Auto) 2.28 1.31 (1.20-3.40) K/uL Bates # (Auto) 1.13 H 0.73 H (0.11-0.59) K/uL Eos # (Auto) 0.29 0.09 (0.00-0.50) K/uL Baso # (Auto) 0.09 0.07 (0.00-0.20) K/uL Immature Gran # (Auto) 0.03 0.03 (0.01-0.20) K/uL Sodium 141 141 (136-145) mmol/L Potassium 3.6 3.5 (3.5-5.1) mmol/L Chloride 105 105 (98-107) mmol/L Carbon Dioxide 31 30 (21-32) mmol/L Anion Gap 5 6 (3-11) BUN 25 H 19 (6-23) mg/dl Creatinine 1.09 0.85 (0.6-1.2) mg/dl Est Cr Clr Drug Dosing Not Reportable 34.1 Est GFR ( Amer) 55.5 75.0 ml/min Est GFR (Non-Af Amer) 47.9 64.7 ml/min BUN/Creatinine Ratio 22.9 H 22.4 H (10-20) Glucose 84 102 H (70-99(Fasting)) mg/dl Calcium 9.8 9.5 (8.6-10.3) mg/dl Phosphorus 3.0 (2.5-4.9) mg/dl Magnesium 1.8 (1.7-2.4) mg/dl Total Bilirubin 0.6 (0.2-1.0) mg/dl AST 23 (13-39) U/L ALT 19 (7-52) U/L Alkaline Phosphatase 60 (34-104) U/L Troponin I High Sens 13.9 (0-14) pg/ml Total Protein 6.6 (6.0-8.3) gm/dl Albumin 3.9 (3.4-5.0) gm/dl Globulin 2.7 (2.5-4.0) gm/dl Albumin/Globulin Ratio 1.4 (0.9-2) Lipase 32 (11-82) U/L Urine Color Yellow Urine Appearance Clear (Clear) Urine pH 8.5 H (4.5-7.5) Ur Specific [place] 1.009 (1.000-1.030) Urine Protein Negative (Negative) Urine Glucose (UA) Negative (Negative) Urine Ketones Negative (Negative) Urine Blood Negative (Negative) Urine Nitrite Negative (Negative) Urine Bilirubin Negative (Negative) Urine Urobilinogen Negative (Negative) Ur Leukocyte Esterase Negative (Negative) SARS-CoV-2, RNA, NAAT NEGATIVE (NEGATIVE) Diagnostic Findings Abdomen/Pelvis CT 02/26/24 21:23 Exam(s): CT ABDOMEN + PELVIS With Contrast IV Amt: 92 ml optiray 320 EXAM: CT Abdomen and Pelvis With Intravenous Contrast CLINICAL HISTORY: Reason for exam: nausea, weight loss. TECHNIQUE: Axial computed tomography images of the abdomen and pelvis with intravenous contrast. Automated exposure control was utilized for the study. A dose lowering technique was utilized adhering to the principles of ALARA. CONTRAST: Patient received 92 ml optiray 320 of IV contrast COMPARISON: CT abdomen pelvis February 27, 2023. FINDINGS: Lung bases: Unremarkable. No mass. No consolidation. ABDOMEN: Liver: Unremarkable. No mass. Gallbladder and bile ducts: Cholecystectomy. Intrahepatic biliary ductal dilation. Pancreas: Unremarkable. No mass. No ductal dilation. Spleen: Unremarkable. No splenomegaly. Adrenals: Unremarkable. No mass. Kidneys and ureters: Renal cyst measuring up to 4 cm in the RIGHT upper pole. No hydronephrosis. Stomach and bowel: Diverticulosis, without acute diverticulitis. No small bowel obstruction. No free intraperitoneal air. PELVIS: Appendix: No findings to suggest acute appendicitis. Bladder: Unremarkable. No mass. Reproductive: Atrophy of the uterus. ABDOMEN and PELVIS: Intraperitoneal space: Unremarkable. No free air. No significant fluid collection. Bones/joints: Sternotomy wires. Degenerative changes of the spine. Posterior fusion at L3-L5. No acute fracture. No dislocation. Soft tissues: Unremarkable. Vasculature: Atherosclerotic changes of the aorta. No abdominal aortic aneurysm. Lymph nodes: Unremarkable. No enlarged lymph nodes. IMPRESSION: 1. Cholecystectomy. Intrahepatic biliary ductal dilation. 2. Diverticulosis, without acute diverticulitis. No small bowel obstruction. No free intraperitoneal air. Electronically signed by: Dennis Mendez MD 02/27/24 00:20 AM PG Care Time/CCT Total # of Minutes Spent Total Time Spent with Patient: Total time spent is greater than 50% in coordination of care (as documented) at patient's floor/unit and/or counseling patient: Coding Level of Care Code 55297 INT INP/OBS CARE 2/55MIN Diagnoses Recent weight loss R63.4 Nausea R11.0 Anemia, unspecified type D64.9 Anemia type: unspecified type Intrahepatic bile duct dilation K83.8 (3) Anemia Anemia type: unspecified type Qualified Code(s): D64.9 - Anemia, unspecified
[2024-02-27] MEDS: ACETAMINOPHEN 500 MG TAB PO SCH (20:28)
[2024-02-27] MEDS: amLODIPine BESYLATE 5 MG TAB PO SCH (20:29)
[2024-02-27] MEDS: MAGNESIUM OXIDE 400 MG TAB PO SCH (20:32)
[2024-02-27] MEDS: ROSUVASTATIN CALCIUM 20 MG TAB PO SCH (20:33)
[2024-02-27] MEDS: ASPIRIN 81 MG ECTAB PO SCH (20:34)
[2024-02-27] MEDS: EZETIMIBE 10 MG TAB PO SCH (20:35)
[2024-02-27] MEDS: diphenhydrAMINE Capsule 25 MG CAP PO SCH (20:36)
[2024-02-27] MEDS ORDERED: NON-FORMULARY MEDICATION (Diphenhydramine-Acetaminophen [Tylenol Pm Extra Strength] 25-500 PO SCH (21:00)
[2024-02-27] MEDS: GADOXETATE DISODIUM IV ONE (23:48)
--- NOTE | 2024-02-28 02:21 | Magnetic Resonance Report ---
Exam(s): MRI ABDOMEN W/WO Contrast IV Amt: 10cc eovist EXAM: MR Abdomen Without and With Intravenous Contrast CLINICAL HISTORY: intrahep ductal dil; please perform MRCP+MR w con. TECHNIQUE: Multiplanar magnetic resonance images of the abdomen without and with intravenous contrast. CONTRAST: Patient received 10cc eovist of IV contrast COMPARISON: No relevant prior studies available. FINDINGS: Limitations: There is extensive respiratory artifact, which degrades image on multiple image sequences. Lung bases: Unremarkable. No mass. No consolidation. Liver: No definite intrahepatic abnormal enhancing mass, accounting for limitations with prominent respiratory artifact. Gallbladder and bile ducts: Cholecystectomy. The common bile duct measures 8.8 in transverse diameter mm on coronal imaging at the level of the sebastien hepatis with a gradual tapering appearance distally. No choledocholithiasis. No significant intrahepatic biliary dilatation. Pancreas: Unremarkable. No ductal dilation. No mass. Spleen: Unremarkable. No splenomegaly. Adrenals: Unremarkable. No mass. Kidneys and ureters: The cortical cyst involving the superior medial right kidney measures 4.2 x 4 x 4.3 cm. Smaller subcentimeter cysts noted bilaterally. No abnormal internal complex features or enhancement identified. No follow-up required. No hydronephrosis. Stomach and bowel: Evaluation the bowel is limited. No bowel obstruction. Intraperitoneal space: Unremarkable. No significant fluid collection. Bones/joints: Postsurgical changes involving the lumbar spine with posterior hardware and laminectomy defects. Soft tissues: Unremarkable. Vasculature: Incidental thoracoabdominal aortic aneurysm, with the distal thoracic esophagus measuring 4.1 cm in diameter AP with eccentric atheromatous plaque burden noted. There is a gradual tapering with the suprarenal aorta normal in caliber. There is fusiform ectasia of the distal infrarenal aorta. No acute periaortic abnormality. No evidence for dissection or acute periaortic abnormality. Lymph nodes: Unremarkable. No enlarged lymph nodes. IMPRESSION: 1. Limited by extensive respiratory artifact. 2. Cholecystectomy. The common bile duct measures 8.8 mm in diameter on coronal imaging at the level of the sebastien hepatis with a gradual tapering appearance distally. No choledocholithiasis. No significant intrahepatic biliary dilatation. This is only minimally borderline ectatic for the patient's age and is presumed slightly accentuated by adaptive changes following cholecystectomy. 3. No definite intrahepatic abnormal enhancing mass, accounting for limitations with prominent respiratory artifact. 4. Incidental thoracoabdominal aortic aneurysm, with the distal thoracic esophagus measuring 4.1 cm in diameter AP with eccentric atheromatous plaque burden noted. There is a gradual tapering with the suprarenal aorta normal in caliber. There is fusiform ectasia of the distal infrarenal aorta. No acute periaortic abnormality. No evidence for dissection or acute periaortic abnormality. This is a presumed incidental finding. Electronically signed by: Saul Amaya MD 02/28/24 02:21 AM
[2024-02-28 08:34] LABS: Basophils # (auto) 0.07 K/uL (0.00-0.20); Basophils % (auto) 1.4 %; Eosinophils # (auto) 0.19 K/uL (0.00-0.50); Eosinophils % (auto) 3.7 %; Hematocrit (blood only) 33.8 % (37.0-47.0); Immature Granulocytes # (auto) 0.02 K/uL (0.01-0.20); Immature Granulocytes % (auto) 0.4 %; Lymphocytes # (auto) 1.31 K/uL (1.20-3.40); Lymphocytes % (auto) 25.4 %; Mean Corpuscular Hemoglobin 31.2 pg (25.0-34.0); Mean Corpuscular Hgb Conc 32.5 g/dL (32.0-36.0); Mean Corpuscular Volume 95.8 fL (80.0-100.0); Mean Platelet Volume 11.7 fL (9.4-12.4); Monocytes # (auto) 0.58 K/uL (0.11-0.59); Monocytes % (auto) 11.3 %; Neutrophils # (auto) 2.98 K/uL (1.40-6.50); Neutrophils % (auto) 57.8 %; Platelet Count 202 K/uL (130-400); RDW Coefficient of Variation 12.8 % (11.5-14.5); RDW Standard Deviation 44.4 fL (36.4-46.3); Red Blood Count 3.53 M/uL (4.20-5.40); White Blood Count 5.15 K/ul (4.8-10.8)
--- NOTE | 2024-02-28 08:43 | Anesthesiology Consultation ---
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 clerk initiated Consults Requested none ASA ASA3 Proposed Anesthesia Anesthesia Type: MAC History Surgery Operation Date: 02/28/24 16:30 Proposed Procedures p Esophagogastroduodenoscopy Oli - Blaine Baird MD Height/Weight Height: 4 ft 10 in Weight: 48.3 kg Allergies Allergy/AdvReac Type Severity Reaction Status Date / Time morphine AdvReac Mild IV Verified 02/27/24 01:51 morphine - vomiting oxycodone AdvReac Mild very Verified 02/27/24 01:51 nauseated, "goofy" Medications Home Medications Medication Instructions Recorded Confirmed Last Taken amlodipine 2.5 mg tablet 2.5 mg PO QPM 01/23/21 02/27/24 02/24/23 21:00 cyanocobalamin (vitamin B-12) 1,000 mcg PO 3XWK 01/23/21 02/27/24 02/24/23 08:00 1,000 mcg tablet,extended release (Vitamin B-12 ER) ezetimibe 10 mg tablet (Zetia) 10 mg PO QPM 01/23/21 02/27/24 02/25/23 07:00 lorazepam 1 mg tablet 1 mg PO AMHS 01/23/21 02/27/24 02/24/23 21:00 magnesium 250 mg tablet 250 mg PO QPM 01/23/21 02/27/24 02/24/23 21:00 nitroglycerin 0.4 mg sublingual 0.4 mg sublingual UD PRN Chest Pain 01/23/21 02/27/24 Unknown tablet pantoprazole 40 mg tablet,delayed 40 mg PO QAM 01/23/21 02/27/24 02/24/23 21:00 release (Protonix) potassium chloride 8 mEq 8 meq PO QAM 01/23/21 02/27/24 02/24/23 07:00 tablet,extended release (Klor-Con) aspirin 81 mg tablet,delayed 81 mg PO QPM 12/02/23 02/27/24 Unknown release (Ecotrin Low Strength) buspirone 15 mg tablet 15 mg PO BID 12/02/23 02/27/24 Unknown calcium carbonate (Calcium 600) 600 mg PO BID 12/02/23 02/27/24 Unknown dicyclomine 20 mg tablet 20 mg PO 3XWK 12/02/23 02/27/24 Unknown diphenhydramine 25 1 tab PO HS 12/02/23 02/27/24 Unknown mg-acetaminophen 500 mg tablet (Tylenol PM Extra Strength) fluticasone propionate 220 1 puff inhalation BID 12/02/23 02/27/24 Unknown mcg/actuation HFA aerosol inhaler levothyroxine 100 mcg tablet 100 mcg PO DAILYBB 12/02/23 02/27/24 Unknown meclizine 12.5 mg tablet 12.5 mg PO AMPM 12/02/23 02/27/24 Unknown multivitamin with minerals-folic 1 tab PO QAM 12/02/23 02/27/24 Unknown acid 0.4 mg tablet (One-A-Day Cholesterol Plus) omega 1-yzd-kfc-fish oil 1,000 mg 2 cap PO QPM 12/02/23 02/27/24 Unknown (120 mg-180 mg) capsule (Fish Oil) rosuvastatin 20 mg tablet 20 mg PO QPM 12/02/23 02/27/24 Unknown sertraline 50 mg tablet 50 mg PO QAM 12/02/23 02/27/24 Unknown isosorbide mononitrate 60 mg 120 mg (2 x 60 mg) PO QAM #60 tabs 12/04/23 02/27/24 Unknown tablet,extended release 24 hr losartan 50 mg tablet 50 mg PO QAM #30 tabs 12/04/23 02/27/24 Unknown metoprolol succinate 25 mg 12.5 mg (1/2 x 25 mg) PO QAM #60 12/04/23 02/27/24 Unknown tablet,extended release 24 hr tabs Active Medications Generic Name Dose Route Start Last Admin Trade Name Freq PRN Reason Stop Dose Admin Acetaminophen 500 mg 02/27/24 21:00 02/27/24 20:28 Acetaminophen 500 Mg Tab PO 03/28/24 20:59 500 mg PM REJI Administration Amlodipine Besylate 2.5 mg 02/27/24 21:00 02/27/24 20:29 Amlodipine Besylate 5 Mg Tab PO 03/28/24 20:59 2.5 mg QPM REJI Administration Aspirin 81 mg 02/27/24 21:00 02/27/24 20:34 Aspirin 81 Mg Ectab PO 03/28/24 20:59 81 mg QPM REJI Administration Buspirone HCl 15 mg 02/27/24 09:00 02/28/24 08:27 Buspirone 15 Mg Tab PO 03/28/24 08:59 15 mg BID REJI Administration Calcium/Vitamin D 1 tab 02/27/24 09:00 02/28/24 08:27 Calcium 600mg + Vit D 400 Iu Tab PO 03/28/24 08:59 1 tab BID REJI Administration Diphenhydramine HCl 25 mg 02/27/24 21:00 02/27/24 20:36 Diphenhydramine Capsule 25 Mg Cap PO 03/28/24 20:59 25 mg HS REJI Administration Ezetimibe 10 mg 02/27/24 21:00 02/27/24 20:35 Ezetimibe 10 Mg Tab PO 03/28/24 20:59 10 mg QPM REJI Administration Fluticasone Furoate 1 puffs 02/27/24 09:00 02/28/24 08:26 Fluticasone Furoate 200mcg 14 Puffs/Inhaler INH 03/28/24 08:59 1 puffs DAILY REJI Administration Heparin Sodium (Porcine) 5,000 units 02/27/24 09:00 02/28/24 08:26 Heparin Sod 5,000 Unit/0.5 Ml Vial SQ 03/28/24 08:59 Not Given Q12 REJI Dextrose/Sodium Chloride 1,000 mls @ 80 mls/hr 02/27/24 04:01 02/28/24 08:33 D5w And 1/2nss IV 03/28/24 04:00 80 mls/hr .[id number] REJI Administration Famotidine 20 mg in 5 mls @ 2.5 mls/min 02/27/24 09:00 02/28/24 08:33 Pepcid 20mg Iv Push IV 03/28/24 08:59 2.5 mls/min Q12H REJI Administration Isosorbide Mononitrate 120 mg 02/27/24 09:00 02/28/24 08:27 Isosorbide Mcclain Extended Rel 60 Mg Tabcr PO 03/28/24 08:59 120 mg QAM REJI Administration Levothyroxine Sodium 100 mcg 02/27/24 06:30 02/28/24 06:19 Levothyroxine Sodium 100 Mcg Tablet PO 03/28/24 06:29 100 mcg DAILYBB REJI Administration Lorazepam 1 mg 02/27/24 09:00 02/28/24 08:33 Lorazepam 1 Mg Tab PO 03/28/24 08:59 1 mg BID REJI Administration Losartan Potassium 50 mg 02/27/24 09:00 02/28/24 08:27 Losartan Potassium 50 Mg Tab PO 03/28/24 08:59 50 mg QAM REJI Administration Magnesium Oxide 400 mg 02/27/24 21:00 02/27/24 20:32 Magnesium Oxide 400 Mg Tab PO 03/28/24 20:59 400 mg QPM REJI Administration Meclizine HCl 12.5 mg 02/27/24 09:00 02/28/24 08:27 Meclizine 12.5 Mg Tab PO 03/28/24 08:59 12.5 mg BID REJI Administration Metoprolol Succinate 12.5 mg 02/27/24 09:00 02/28/24 08:29 Metoprolol Succ 25mg Ext Rel Tab PO 03/28/24 08:59 Not Given QAM REJI Multivitamins/Minerals 1 tab 02/27/24 09:00 02/28/24 08:27 Cerovite Adv Formula Tab PO 03/28/24 08:59 1 tab QAM REJI Administration Pantoprazole Sodium 40 mg 02/27/24 09:00 02/28/24 08:27 Pantoprazole 40 Mg Tab PO 03/28/24 08:59 40 mg QAM REJI Administration Potassium Chloride 10 meq 02/27/24 09:00 02/28/24 08:27 Potassium Chloride 10 Meq Tabcr PO 03/28/24 08:59 10 meq QAM REJI Administration Rosuvastatin Calcium 20 mg 02/27/24 21:00 02/27/24 20:33 Rosuvastatin Calcium 20 Mg Tab PO 03/28/24 20:59 20 mg QPM REJI Administration Sertraline HCl 50 mg 02/27/24 09:00 02/28/24 08:27 Sertraline Hcl 50 Mg Tablet PO 03/28/24 08:59 50 mg QAM REJI Administration Past Medical History Medical History Dyslipidemia, goal LDL below 70 Primary osteoarthritis, left shoulder Left shoulder pain Difficult to fully lift left arm- reason for upcoming procedure Encounter for pre-operative examination Chronic back pain Osteoarthritis GERD (gastroesophageal reflux disease) Past Family History Family History Other No family history of adverse response to anesthesia No known health problems Past Surgical History Surgical History Status post lumbar surgery L3-4 decompression/fusion, hardware removal (10/03/21): Grade 2 view, MAC#3, ETT 7.0 at [facility]. Anesthesia postop progress note, "no major complications apparent and Pt Satisfied with anesthetic care.. postop somnolence after extubation, hypotensive responsive to BP medications and fluid bolus." S/P lumbar fusion History of esophagogastroduodenoscopy (EGD) Hx of thumb surgery right Status post trigger finger release left finger History of right cataract extraction History of left cataract extraction History of carpal tunnel surgery of left wrist S/P epidural steroid injection Hx of shoulder surgery right rotator cuff repair Hx of colonoscopy History of bunionectomy of right great toe x2 History of total right knee replacement History of total left knee replacement Hx of sinus surgery Hx of cholecystectomy History of cardiac cath 2020, no stents History of coronary artery bypass graft CABG x3 (1999) Social History Smoking Status: Never smoker Do You Dip or Chew Tobacco: No Hx Alcohol Use: Yes (socially only) Alcohol type: wine alcohol intake frequency: holidays/special occasions only Hx Substance Use: No substance use type: does not use Physical Exam Vital Signs Last Vital Signs Temp 36.9 C 02/28/24 07:21 Pulse 51 L 02/28/24 07:21 Resp 17 02/28/24 07:21 BP 154/69 H 02/28/24 07:21 Pulse Ox 95 02/28/24 07:21 O2 Del Method Room Air 02/28/24 07:21 Testing Laboratory Results 02/28/24 08:10 Urine Color Yellow 02/26/24 21:10 Urine Appearance Clear (Clear) 02/26/24 21:10 Urine pH 8.5 (4.5-7.5) H 02/26/24 21:10 Ur Specific [place] 1.009 (1.000-1.030) 02/26/24 21:10 Urine Protein Negative (Negative) 02/26/24 21:10 Urine Glucose (UA) Negative (Negative) 02/26/24 21:10 Urine Ketones Negative (Negative) 02/26/24 21:10 Urine Nitrite Negative (Negative) 02/26/24 21:10 Ur Leukocyte Esterase Negative (Negative) 02/26/24 21:10 Electrocardiogram Date: 02/26/24 DICTATED BY: Monico Bishop MD Test Reason : Blood Pressure : / mmHG Vent. Rate : 064 BPM Atrial Rate : 064 BPM P-R Int : 216 ms QRS Dur : 094 ms QT Int : 416 ms P-R-T Axes : 058 010 043 degrees QTc Int : 429 ms Sinus rhythm with 1st degree A-V block Otherwise normal ECG When compared with ECG of 02-DEC-2023 14:29, Nonspecific T wave abnormality no longer evident in Anterior leads Confirmed by Monico Bishop ([id number]) on 02/27/2024 7:01:49 AM Chest X-Ray Date: 12/02/23 XR chest 1V not portable CLINICAL HISTORY: Chest pain, nonspecific TECHNIQUE: Single frontal radiograph of the chest was obtained. Comparison: Comparison is made to rib series 07/19/2023 FINDINGS: Median sternotomy wires are seen including fractured third wire. Left reverse arthroplasty is seen. Posterior spinal fixation hardware is partially seen in the lumbar spine. The aorta is tortuous. The remainder of the cardiomediastinal silhouette is unremarkable. The lungs are clear. No evidence of pleural effusion or pneumothorax. IMPRESSION: No acute chest disease. Echocardiogram Date: 12/03/23 EF: 55-60 LV Function: normal RWMA: + hypokinetic (very mild at basal and mid-septum) Other Findings: + LVH (mild, concentric)
[2024-02-28 09:28] LABS: Calcium 9.4 mg/dl (8.6-10.3); Potassium 3.9 mmol/L (3.5-5.1)
[2024-02-28 09:34] LABS: BUN Creatinine Ratio 21.7 (10-20); Creatinine Clr Calc Pharmacy 31.5 ml/min; Est GFR (African American) 68.2 ml/min; Est GFR (Non-African American) 58.8 ml/min
--- NOTE | 2024-02-28 11:10 | Gastroenterology Progress Note ---
Date of Service February 28, 2024 Assessment & Plan (1) Recent weight loss: Plan: 78 year old female with history of CAD s/p CABG in 1999, HTN, HLD, distant uncomplicated CCY for gallstone disease presenting with a 1 year history of weight loss and 2 months of nausea. There is report of an EGD/Colon VCE around 2020 but record is not available to review. Maintain NPO status EGD this AM If unremarkable, consider OP EUS We appreciate assistance in the management of any serological abnormality and corrections to include: hemoglobin >7, INR <2, platelets >50,000, potassium levels >3.5 but <5.3, and sodium levels within 5 points of the reference range prior to endoscopic evaluation. Thank you for allowing us to participate in the care of this patient. Please call with any acute changes, questions or concerns. Please see addendum below with additional recommendation from my supervising physician. (2) Nausea: Admission and Anticipated Discharge Date Admission Date: February 27, 2024 Supervising Physician Co-Signing Physician Notes I personally saw and examined the patient. I have reviewed the chart and agree with the documentation provided by the SETTER UP including discussion about the assessment, treatment and plan. Nausea and anemia with unrevealing ct. + IH dilation but s/p choley. will do egd to evaluate for source of her symptoms today. npo. Subjective NPO for EGD this AM. Endorses ongoing nausea. MRI ABD 2023: . Limited by extensive respiratory artifact. 2. Cholecystectomy. The common bile duct measures 8.8 mm in diameter on coronal imaging at the level of the sebastien hepatis with a gradual tapering appearance distally. No choledocholithiasis. No significant intrahepatic biliary dilatation. This is only minimally borderline ectatic for the patient's age and is presumed slightly accentuated by adaptive changes following cholecystectomy. 3. No definite intrahepatic abnormal enhancing mass, accounting for limitations with prominent respiratory artifact. 4. Incidental thoracoabdominal aortic aneurysm, with the distal thoracic esophagus measuring 4.1 cm in diameter AP with eccentric atheromatous plaque burden noted. There is a gradual tapering with the suprarenal aorta normal in caliber. There is fusiform ectasia of the distal infrarenal aorta. No acute periaortic abnormality. No evidence for dissection or acute periaortic abnormality. This is a presumed incidental finding. CTAP 2024: Cholecystectomy. Intrahepatic biliary ductal dilation. Diverticulosis, without acute diverticulitis. No small bowel obstruction. No free intraperitoneal air. Review of Systems Review of Systems: All other findings negative except as noted in HPI. Physical Exam Constitutional: WD/WN, vitals as above Respiratory: normal respiratory effort, lungs clear to auscultation Cardiovascular: Rate/Rhythm: regular rate and regular rhythm Gastrointestinal (Abdomen): normal bowel sounds, soft, nontender, no hepat osplenomegaly Skin: no rashes, warm and dry Results & Data Results & Data Vital Signs (Past 12 Hours) Vital Signs Temp Pulse Resp BP Pulse Ox O2 Del Method 02/28/24 07:21 36.9 C 51 L 17 154/69 H 95 Room Air PG Care Time/CCT Total # of Minutes Spent Total Time Spent with Patient: Total time spent is greater than 50% in coordination of care (as documented) at patient's floor/unit and/or counseling patient: Coding Level of Care Code 87433 SUB INP/OBS CARE 3/50MIN Diagnoses Recent weight loss R63.4 Nausea R11.0
[2024-02-28] MEDS: SODIUM CHLORIDE 0.9% 500 ML IV SCH (12:04)
--- NOTE | 2024-02-28 13:52 | GI REPORT ---
[facility] Patient: KALEB MACDONALD : 1945 Sex at : Female Age: 78 Years Procedure: Upper GI endoscopy Date: 02/28/2024 Attending Physician: Blaine Baird MD Referring MD: Buster Chang Indications: - Nausea with vomiting Medications: - Monitored Anesthesia Care Complications: - No immediate complications. Estimated Blood Loss: - Estimated blood loss: None. - Estimated blood loss was minimal. Procedure: - Prior to the procedure, a History and Physical was performed, and patient medications and allergies were reviewed. The patient's tolerance of previous anesthesia was also reviewed. The risks and benefits of the procedure and the sedation options and risks were discussed with the patient. All questions were answered, and informed consent was obtained. Prior Anticoagulants: The patient has taken no anticoagulant or antiplatelet agents [Days Prior to Procedure]. ASA Grade Assessment: III - A patient with severe systemic disease. After reviewing the risks and benefits, the patient was deemed in satisfactory condition to undergo the procedure. - The egd scope was introduced through the mouth and advanced to the second part of the duodenum. - The upper GI endoscopy was accomplished without difficulty. - The patient tolerated the procedure well. - The upper GI endoscopy was accomplished with ease. Findings: - The examined esophagus was normal. - Diffuse moderate inflammation characterized by erosions and congestion (edema) was found in the gastric body. Biopsies were taken with a cold forceps for Helicobacter pylori testing. - The examined duodenum was normal. Impression: - Normal esophagus. - Acute gastritis, characterized by erosions and congestion (edema). Biopsied. - Normal examined duodenum. Recommendation: - Discharge patient to home (ambulatory). - Resume previous diet. - Continue present medications. - Await pathology results. - Return to primary care physician as previously scheduled. - Patient has a contact number available for emergencies. The signs and symptoms of potential delayed complications were discussed with the patient. Return to normal activities tomorrow. Written discharge instructions were provided to the patient. - If nausea persists, outpt MRCP vs EUS and gastric emptying scan to evaluate nausea. for now, small frequent meals and supportive care for now. GI will sign off. Procedure Code(s): - 66781, Esophagogastroduodenoscopy, flexible, transoral; with biopsy, single or multiple Diagnosis Code(s): - R11.2, Nausea with vomiting, unspecified - K29.00, Acute gastritis without bleeding CPT(R) - 202 copyright [employer]. All Rights Reserved. The CPT codes, CCI edits and ICD codes generated are intended as suggestions and were generated based on input data. These codes are preliminary and upon building serviceman review may be revised to meet current compliance and payer requirements. The provider is responsible for the final determination of appropriate codes, and modifiers. Blaine Baird MD This document has been electronically signed. Note Initiated:02/28/2024 Note Completed:02/28/2024 1:52 PM [email or web address]\[id number]
[2024-02-28] MEDS: PROPOFOL IV EMULSION 10 MG/ML 20 ML VIAL IV ONE (14:24)
[2024-02-28] MEDS: LIDOCAINE 2% 2 ML VIAL/AMP(20MG/ML) INFIL ONE ×2 (14:24)
--- NOTE | 2024-02-28 14:56 | Anesthesiology Progress Note ---
Date of Service February 28, 2024 Anesthesia Post Procedure Vital Signs Vital Signs: Temp Pulse Pulse Resp BP Pulse Ox O2 Del Method 02/28/24 14:30 36.7 C 58 L 16 158/76 H 95 Room Air 02/28/24 14:13 50 L 18 143/74 H 93 Room Air 02/28/24 13:58 54 L 18 134/67 93 Room Air 02/28/24 13:43 51 L 16 98/51 L 100 Room Air 02/28/24 11:50 36.5 C 56 L 18 151/70 H 96 Room Air 02/28/24 07:21 36.9 C 51 L 17 154/69 H 95 Room Air 02/27/24 20:47 36.3 C L 63 16 169/79 H 97 Room Air 02/27/24 15:34 36.6 C 83 18 122/68 94 Room Air Transfer of Care Handoff Completed per policy Notes Mental Status: alert / awake / arousable and participated in evaluation Patient Amnestic to Procedure: Yes Nausea / Vomiting: adequately controlled Pain: adequately controlled Airway Patency, RR, SpO2: stable & adequate BP & HR: stable & adequate Hydration State: stable & adequate Anesthetic Complications: no major complications apparent
[2024-02-28 15:59] VITALS: BP 167/79; PULSE 65; RESP 17; TEMP 97.9; O2SAT 92
--- NOTE | 2024-02-28 16:43 | Hospitalist Progress Note ---
Date of Service February 28, 2024 Assessment & Plan (1) Nausea: Plan: 78-year-old female with past medical history significant for CAD s/p CABG in 1999, hypertension, hyperlipidemia, depression, anxiety, lumbar decompression fusion surgery 2021 comes because of persistent nausea going on for last 2 months. Patient states initially it was in the morning but now is more persistent. Her PCP gave Zofran but is not working much. Supposed to be seen by GI but has appointment in April in [place].Her PCP is in [place]. Today the nausea was more persistent and also she was micturating a lot and her brought her to the hospital. Patient says no vomiting. She is eating and swallowing okay but having persistent nausea. Which is bothering her. Somewhat constipated. Denies any blood in the stools or black stools. No burning micturition. No fevers. No cough. No chest pain or shortness of breath. No headache. Somewhat dizzy. Vision is okay. No runny nose or sore throat. Patient says she lost about 60 to 70 pounds in last 6 years. Since the nausea started a couple of months ago she lost few pounds. Currently hemodynamics are okay. Persistent nausea-More or less every morning without any vomiting and resolved with ODT Zofran Going on for last [address] abdomen pelvis okay Has been on IV Pepcid 20 mg twice daily IV fluids Clinically much better today and remains hemodynamically stable with unremarkable labs Awaiting GI evaluation-appreciate input and recommendation Status post EGD which showed acute gastritisbiopsy taken Advised to have current medications to be continued and the patient can be discharged If nausea persist outpatient MRCP versus EUS and gastric emptying scan to evaluate nausea Discussed with the patient and the She wants to go home and will be discharged CAD s/p CABG On aspirin, Zetia, metoprolol, rosuvastatin and Imdur Denies any cardiac symptoms Hyperlipidemia Zetia and rosuvastatin Hypertension On amlodipine, losartan, Imdur and metoprolol Last admission medications were adjusted by cardiology Blood pressure remains on the upper side at 161/69 Hypothyroidism On Synthyroid Anxiety and depression Continue home medications Frequent micturition Today UA is okay Will monitor DVT prophylaxis Heparin subcu Disposition Medical floor Full code. Admission and Anticipated Discharge Date Admission Date: February 27, 2024 Subjective 02/27/2024 The patient was seen and examined in medical floor in presence of her She was admitted with washcloth folder nausea without vomiting which has been going on for 2 months She has been using nebulizers ODT Zofran which helps the symptoms Denies any significant weight loss since She has an appointment with postal worker as an outpatient in April She is waiting to be seen by the GI specialist in the hospital for any immediate procedure 02/28/2024 The patient was seen and examined in medical floor in presence of the She has been feeling much better following EGD which showed acute gastritis Denies any more symptoms She will have regular diet and will be discharged home this afternoon Review of Systems Review of Systems: All systems reviewed and are unremarkable except as noted below Physical Exam Physical Exam: Sitting at the edge of the bed without any acute distress Constitutional: + thin; not ill appearing Eyes: PERRL, conjunctivae normal, anicteric sclerae ENMT: external ear and nose normal, oropharynx normal Neck: trachea midline, no thyromegaly Respiratory: no respiratory distress Auscultation: lungs clear to auscultation bilaterally Cardiovascular: Rate/Rhythm: regular rate and regular rhythm; not tachycardic Heart Sounds: normal S1 and normal S2; no murmur Extremities: no edema Gastrointestinal (Abdomen): Inspection/Auscultation: normal bowel sounds; abdomen not distended Percussion/Palpation: abdomen soft; abdomen nontender Neurologic: normal touch/pain/proprioception and moves all extremities; no focal motor deficits Psychiatric: A+Ox3, euthymic affect Lymphatic: no cervical or axillary lymphadenopathy Results & Data Results & Data Vital Signs (Past 12 Hours) Vital Signs Temp Pulse Resp BP Pulse Ox O2 Del Method 02/28/24 15:16 36.6 C 65 17 167/79 H 92 Room Air 02/28/24 14:30 36.7 C 58 L 16 158/76 H 95 Room Air 02/28/24 14:13 50 L 18 143/74 H 93 Room Air 02/28/24 13:58 54 L 18 134/67 93 Room Air 02/28/24 13:43 51 L 16 98/51 L 100 Room Air 02/28/24 11:50 36.5 C 56 L 18 151/70 H 96 Room Air 02/28/24 07:21 36.9 C 51 L 17 154/69 H 95 Room Air Laboratory Results Short CBC 02/28/24 Range/Units 08:10 WBC 5.15 (4.8-10.8) K/ul Hgb 11.0 L (12.0-16.0) g/dl Hct 33.8 L (37.0-47.0) % Plt Count 202 (130-400) K/uL BMP 02/28/24 08:10 Sodium 141 Potassium 3.9 Chloride 105 Carbon Dioxide 30 BUN 20 Creatinine 0.92 Glucose 83 Calcium 9.4 Medications Administered Current Inpatient Medications Acetaminophen (Acetaminophen 325 Mg Tab) 650 mg PO Q4H PRN PRN Reason: pain/fever Stop: 03/28/24 04:00 Acetaminophen (Acetaminophen 500 Mg Tab) 500 mg PO PM REJI Stop: 03/28/24 20:59 Last Admin: 02/27/24 20:28 Dose: 500 mg Amlodipine Besylate (Amlodipine Besylate 5 Mg Tab) 2.5 mg PO QPM REJI Stop: 03/28/24 20:59 Last Admin: 02/27/24 20:29 Dose: 2.5 mg Aspirin (Aspirin 81 Mg Ectab) 81 mg PO QPM REJI Stop: 03/28/24 20:59 Last Admin: 02/27/24 20:34 Dose: 81 mg Buspirone HCl (Buspirone 15 Mg Tab) 15 mg PO BID REJI Stop: 03/28/24 08:59 Last Admin: 02/28/24 08:27 Dose: 15 mg Calcium/Vitamin D (Calcium 600mg + Vit D 400 Iu Tab) 1 tab PO BID REJI Stop: 03/28/24 08:59 Last Admin: 02/28/24 08:27 Dose: 1 tab Diphenhydramine HCl (Diphenhydramine Capsule 25 Mg Cap) 25 mg PO HS REJI Stop: 03/28/24 20:59 Last Admin: 02/27/24 20:36 Dose: 25 mg Ezetimibe (Ezetimibe 10 Mg Tab) 10 mg PO QPM REJI Stop: 03/28/24 20:59 Last Admin: 02/27/24 20:35 Dose: 10 mg Fluticasone Furoate (Fluticasone Furoate 200mcg 14 Puffs/Inhaler) 1 puffs INH DAILY REJI Stop: 03/28/24 08:59 Last Admin: 02/28/24 08:26 Dose: 1 puffs Heparin Sodium (Porcine) (Heparin Sod 5,000 Unit/0.5 Ml Vial) 5,000 units SQ Q12 REJI Stop: 03/28/24 08:59 Last Admin: 02/28/24 08:26 Dose: Not Given Dextrose/Sodium Chloride (D5w And 1/2nss) 1,000 mls @ 80 mls/hr IV .[id number] [facility] Stop: 03/28/24 04:00 Last Admin: 02/28/24 15:13 Dose: Not Given Promethazine HCl 12.5 mg/ (Sodium Chloride) 50.5 mls @ 202 mls/hr IV Q6H PRN PRN Reason: Nausea And Vomiting Stop: 03/28/24 04:00 Famotidine (Pepcid 20mg Iv Push) 20 mg in 5 mls @ 2.5 mls/min IV Q12H [facility] Stop: 03/28/24 08:59 Last Admin: 02/28/24 08:33 Dose: 2.5 mls/min Sodium Chloride (Nss) 500 mls @ 15 mls/hr IV .Q24H REJI Stop: 02/29/24 07:29 Last Infusion: 02/28/24 12:04 Dose: Infused Isosorbide Mononitrate (Isosorbide [place] Extended Rel 60 Mg Tabcr) 120 mg PO QAM [facility] Stop: 03/28/24 08:59 Last Admin: 02/28/24 08:27 Dose: 120 mg Levothyroxine Sodium (Levothyroxine Sodium 100 Mcg Tablet) 100 mcg PO DAILYBB [facility] Stop: 03/28/24 06:29 Last Admin: 02/28/24 06:19 Dose: 100 mcg Lorazepam (Lorazepam 1 Mg Tab) 1 mg PO BID REJI Stop: 03/28/24 08:59 Last Admin: 02/28/24 08:33 Dose: 1 mg Losartan Potassium (Losartan Potassium 50 Mg Tab) 50 mg PO QAM [facility] Stop: 03/28/24 08:59 Last Admin: 02/28/24 08:27 Dose: 50 mg Magnesium Oxide (Magnesium Oxide 400 Mg Tab) 400 mg PO QPM REJI Stop: 03/28/24 20:59 Last Admin: 02/27/24 20:32 Dose: 400 mg Meclizine HCl (Meclizine 12.5 Mg Tab) 12.5 mg PO BID [facility] Stop: 03/28/24 08:59 Last Admin: 02/28/24 08:27 Dose: 12.5 mg Metoprolol Succinate (Metoprolol Succ 25mg Ext Rel Tab) [facility] [place]: 03/28/24 08:59 Last Admin: 02/28/24 08:29 Dose: Not Given Multivitamins/Minerals (Cerovite Adv Formula Tab) 1 tab PO QAM [facility] Stop: 03/28/24 08:59 Last Admin: 02/28/24 08:27 Dose: 1 tab Nitroglycerin (Nitroglycerin Sl 0.4 Mg/Tab Tab) 0.4 mg SL UD PRN PRN Reason: Chest Pain Stop: 03/28/24 04:00 Pantoprazole Sodium (Pantoprazole 40 Mg Tab) [facility] [place]: 03/28/24 08:59 Last Admin: 02/28/24 08:27 Dose: 40 mg Potassium Chloride (Potassium Chloride 10 Meq Tabcr) 10 meq [facility] [place]: 03/28/24 08:59 Last Admin: 02/28/24 08:27 Dose: 10 meq Rosuvastatin Calcium (Rosuvastatin Calcium 20 Mg Tab) 20 mg PO QPM [facility] Stop: 03/28/24 20:59 Last Admin: 02/27/24 20:33 Dose: 20 mg Sertraline HCl (Sertraline Hcl 50 Mg Tablet) [facility] [place]: 03/28/24 08:59 Last Admin: 02/28/24 08:27 Dose: 50 mg
--- NOTE | 2024-02-28 16:58 | Communication Note ---
Date of Service: February 28, 2024 By CMS guidelines, a determination that the admission or continued stay is not medically necessary has been made by a member of the UR committee and a physi gracia for this hospital stay, therefore a Code 44 will be completed and the Inpatient admission will be changed to outpatient. Radha Cutler MD
--- NOTE | 2024-02-28 17:08 | Discharge Summary ---
Date of Service February 28, 2024 Admission HPI Per Admitting Provider 78-year-old female with past medical history significant for CAD s/p CABG in 1999, hypertension, hyperlipidemia, depression, anxiety, lumbar decompression fusion surgery 2021 comes because of persistent nausea going on for last 2 months. Patient states initially it was in the morning but now is more persistent. Her PCP gave Zofran but is not working much. Supposed to be seen by GI but has appointment in April in [place].Her PCP is in [place]. Today the nausea was more persistent and also she was micturating a lot and her brought her to the hospital. Patient says no vomiting. She is eating and swallowing okay but having persistent nausea. Which is bothering her. Somewhat constipated. Denies any blood in the stools or black stools. No burning micturition. No fevers. No cough. No chest pain or shortness of breath. No headache. Somewhat dizzy. Vision is okay. No runny nose or sore throat. Patient says she lost about 60 to 70 pounds in last 6 years. Since the nausea started a couple of months ago she lost few pounds. Currently hemodynamics are okay. Past medical history. As mentioned above Past surgical history. Gallstones removal. CABG. Left knee replacement. Righ t foot bunion . Right knee arthroscopy. Right knee replacement. Left carpal tunnel release. Bilateral cataracts. Left trigger finger release of the ring finger. Colonoscopy. Lumbar fusion surgery. Left shoulder replacement. Social history. No smoking. Alcohol occasional. Family history. Patient does not know her family history as her family was split when she was young. Admission Exam Per Admitting Provider Physical Exam: General- Not in distress Head- atraumatic Eyes- PERRL. ENT- oropharynx clear Neck- supple, no JVD. Lungs- clear to auscultation no wheezing or crackles Heart- regular rhythm; no murmur, no gallop. Abdomen- normal bowel sounds, soft,mild diffuse discomfort , no distension Extremities- no pretibial edema, no erythema seen. Neuro- alert, oriented ,PERRL, no facial palsy; no dysarthria; moves extremities Principal Diagnosis Persistent nausea, acute gastritis on EGD, hypertension Discharge Exam Sitting at the edge of the bed without any acute distress Constitutional + thin; not ill appearing Eyes PERRL, conjunctivae normal, anicteric sclerae ENMT external ear and nose normal, oropharynx normal Neck trachea midline, no thyromegaly Respiratory no respiratory distress Auscultation: lungs clear to auscultation bilaterally Cardiovascular Rate/Rhythm: regular rate and regular rhythm; not tachycardic Heart Sounds: normal S1 and normal S2; no murmur Extremities: no edema Gastrointestinal (Abdomen) Inspection/Auscultation: normal bowel sounds; abdomen not distended Percussion/Palpation: abdomen soft; abdomen nontender Neurologic normal touch/pain/proprioception and moves all extremities; no focal motor deficits Psychiatric A+Ox3, euthymic affect Lymphatic no cervical or axillary lymphadenopathy Discharge Data Allergies Allergy/AdvReac Type Severity Reaction Status Date / Time morphine AdvReac Mild IV Verified 02/28/24 11:49 morphine - vomiting oxycodone AdvReac Mild very Verified 02/28/24 11:49 nauseated, "goofy" Consultations 02/27/24 00:51 ED Decision to Admit Stat 02/27/24 08:00 Consult Gastroenterology Routine Procedures Performed Operation Date: 02/28/24 16:30 Actual Procedures p EGD Biopsy Cytology - Blaine Baird MD Ordered Studies 02/26/24 21:23 CT abd pelvis IV con only Stat 02/27/24 13:09 MRI Abdomen [MR abdomen wo/w con] Routine Hospital Course (1) Nausea: 78-year-old female with past medical history significant for CAD s/p CABG in 1999, hypertension, hyperlipidemia, depression, anxiety, lumbar decompression fusion surgery 2021 comes because of persistent nausea going on for last 2 months. Patient states initially it was in the morning but now is more persistent. Her PCP gave Zofran but is not working much. Supposed to be seen by GI but has appointment in April in [place].Her PCP is in [place]. Today the nausea was more persistent and also she was micturating a lot and her brought her to the hospital. Patient says no vomiting. She is eating and swallowing okay but having persistent nausea. Which is bothering her. Somewhat constipated. Denies any blood in the stools or black stools. No burning micturition. No fevers. No cough. No chest pain or shortness of breath. No headache. Somewhat dizzy. Vision is okay. No runny nose or sore throat. Patient says she lost about 60 to 70 pounds in last 6 years. Since the nausea started a couple of months ago she lost few pounds. Currently he modynamics are okay. Persistent nausea-More or less every morning without any vomiting and resolved with ODT Zofran Going on for last [address] abdomen pelvis okay Has been on IV Pepcid 20 mg twice daily IV fluids Clinically much better today and remains hemodynamically stable with unremarkable labs Awaiting GI evaluation-appreciate input and recommendation Status post EGD which showed acute gastritisbiopsy taken Advised to have current medications to be continued and the patient can be discharged If nausea persist outpatient MRCP versus EUS and gastric emptying scan to evaluate nausea Discussed with the patient and the She wants to go home and will be discharged CAD s/p CABG On aspirin, Zetia, metoprolol, rosuvastatin and Imdur Denies any cardiac symptoms Hyperlipidemia Zetia and rosuvastatin Hypertension On amlodipine, losartan, Imdur and metoprolol Last admission medications were adjusted by cardiology Blood pressure remains on the upper side at 161/69 Hypothyroidism On Synthyroid Anxiety and depression Continue home medications Frequent micturition Today UA is okay Will monitor DVT prophylaxis Heparin subcu Disposition Medical floor Full code. Total Time Total Time Spent Total Time Spent (In Minutes): 35 minutes Discharge Plan Discharge Items Patient Disposition: Home - Self-Care Reason For Visit: PERSISITENT NAUSEA Discharge Diagnosis: Persistent nausea, acute gastritis on EGD, hypertension Condition on Discharge: Good Activity: Resume your previous activity Non-emergency contact: Primary Care Provider Call non-emergency contact if: you have any medication questions and your symptoms worsen Follow-up/Referrals: Florencio Boston PA-C [Primary Care Provider] - (Please make an appointment with your PCP Keep appointment with your supervisor sunglasses) Diet: Regular Diet Texture: Dental soft (bite-sized) Addtl Attending Provider Instructions: Take precautions to avoid falls Take your medications as advised Avoid any NSAIDs like Motrin, Advil, naproxen etc. If your nausea persist outpatient MRCP versus EUS and gastric emptying scan are recommended by the supervisor sunglasses Pending Studies at Discharge: Yes Studies:: Biopsy of the stomach Stand-Alone Forms: [employer], Smoking Cessation Medications and DC Order Prescriptions: Continued cyanocobalamin (vitamin B-12) [Vitamin B-12] 1,000 mcg Tablet Extended Release 1,000 mcg PO 3XWK Rx Instructions: wednesday,wednesday,wednesday mornings amlodipine 2.5 mg Tablet 2.5 mg PO QPM potassium chloride [Klor-Con 8] 8 mEq Tablet Extended Release 8 meq PO QAM nitroglycerin 0.4 mg Tablet, Sublingual 0.4 mg sublingual UD PRN (Reason: Chest Pain) magnesium 250 mg Tablet 250 mg PO QPM lorazepam 1 mg Tablet 1 mg PO AMHS ezetimibe [Zetia] 10 mg Tablet 10 mg PO QPM aspirin [Ecotrin Low Strength] 81 mg Tablet,Delayed Release (Dr/Ec) 81 mg PO QPM levothyroxine 100 mcg tablet 100 mcg PO DAILYBB rosuvastatin 20 mg tablet 20 mg PO QPM dicyclomine 20 mg tablet 20 mg PO 3XWK Rx Instructions: take 1 tablet on WED,WED,WED morning calcium carbonate [Calcium 600] 600 mg calcium (1,500 mg) Tablet 600 mg PO BID buspirone 15 mg tablet 15 mg PO BID fluticasone propionate 220 mcg/actuation HFA aerosol inhaler 1 puff INHALATION BID sertraline 50 mg tablet 50 mg PO QAM Rx Instructions: take with food meclizine 12.5 mg tablet 12.5 mg PO AMPM multivit with min-folic acid [One-A-Day Cholesterol Plus] 0.4 mg Tablet 1 tab PO QAM diphenhydramine-acetaminophen [Tylenol PM Extra Strength] 25-500 mg Tablet 1 tab PO HS omega 0-gck-xee-fish oil [Fish Oil] 1,000 mg (120 mg-180 mg) Capsule 2 cap PO QPM losartan 50 mg Tablet 50 mg PO QAM Qty: 30 0RF isosorbide mononitrate 60 mg Tablet Extended Release 24 Hr 120 mg PO QAM Qty: 60 0RF metoprolol succinate 25 mg Tablet Extended Release 24 Hr 12.5 mg PO QAM Qty: 60 0RF Changed pantoprazole [Protonix] 40 mg Tablet,Delayed Release (Dr/Ec) 40 mg PO BID Qty: 60 0RF Discharge Orders: Discharge Order (Routine); Ordered 02/28/24 Ordered By: Buster Chang Admission Data Admit Date/Time: 02/27/24 02:42 Attending Provider: Buster Chang Admit Provider: Ronnie Cardona Primary Care Provider: Florencio Boston Other Providers: Ronnie Cardona; Canelo Quiroz Other Interventions: Discharge Summary Assessment (RN) Last Done: 02/28/24 14:23
--- NOTE | 2024-03-01 10:22 | Coding Query ---
CODING QUERY To promote full compliance with coding requirements relating to patient care, provider participation is requested in all cases of robot technician uncertainty. Please assist us with the question(s) below: Coding Question(s): Final Diagnoses are Persistent Nausea and Acute Gastritis on EGD. Please clarify if the nausea is likely due to the gastrits, other or of unknown etiology. Physician's Response(s): Documented Acute Gastritis Thank you Sharon Johnson Principal Diagnosis: "that condition established after study, to be chiefly responsible for occasioning the admission of the patient to the hospital for care." Co-Existing Principal Diagnosis: "when two or more diagnoses equally meet the criteria for principal diagnosis as determined by the circumstances of admission, diagnostic work up, and/or therapy provided, and the Alphabetic Index, Tabular List, or another coding guideline does not provide sequencing direction, any one of the diagnoses may be sequenced first." "When the physician has documented what appears to be a current diagnosis in the body of the record, but has not included the diagnosis in the final diagnostic statement, the physician should be asked whether the diagnosis should be added." (Source Coding [facility] 2 QTR90. p3-4) [facility]
== END 2024-02-28 18:22 | disposition home or self-care (01) | DRG 392 ==
LOC: ED 20:21 → INTOOBSV 02-27 02:42 → 3N 02-27 02:42